=== PATIENT | female | born 1975 | race African-American/Black ===

== ENCOUNTER 2016-10-12 13:48 | Inpatient (IN) | payer BC, MEDICAID ==
[2016-10-12] MEDS ORDERED: IPRATROPIUM/ALBUTEROL 0.5-2.5 MG/3 ML AMPUL NEB ONE (14:20)
--- NOTE | 2016-10-12 14:20 | ER Document Report ---
ED Medical Screen (RME) - General Stated Complaint: COUGH,SORE THROAT,DIZZY Notes: 7 days ago patient c/o productive cough with body aches, fever denies h/o asthma tobacco user I have greeted and performed a rapid initial assessment of this patient. A comprehensive ED assessment and evaluation of the patient, analysis of test results and completion of the medical decision making process will be conducted by additional ED providers. TRAVEL OUTSIDE OF THE [place] IN LAST 30 DAYS: No - Related Data Allergies/Adverse Reactions: No Known Allergies Allergy (Verified 10/12/16 14:17) Past Medical History - Past Medical History Cardiac Medical History: Reports: Hx Hypertension Pulmonary Medical History: Denies: Hx Tuberculosis Neurological Medical History: Denies: Hx Seizures Musculoskeltal Medical History: Reports Hx Arthritis Psychiatric Medical History: Denies: Hx Depression Past Surgical History: Reports: Hx Section, Hx Orthopedic Surgery - right knee, Hx Tubal Ligation. Denies: Hx Hysterectomy, Hx Pacemaker - Immunizations Hx Diphtheria, Pertussis, Tetanus Vaccination: Yes Physical Exam - Vital signs Vitals: Temp Pulse Resp BP Pulse Ox 102.6 F H 136 H 24 H 158/88 H 99 10/12/16 13:57 10/12/16 13:57 10/12/16 13:57 10/12/16 13:57 10/12/16 13:57 Course - Vital Signs Vital signs: Temp Pulse Resp BP Pulse Ox 102.6 F H 136 H 24 H 158/88 H 99 10/12/16 13:57 10/12/16 13:57 10/12/16 13:57 10/12/16 13:57 10/12/16 13:57
[2016-10-12] MEDS ORDERED: NORMAL SALINE 1000 ML 1,000 ML IV ONE (16:10)
[2016-10-12] MEDS ORDERED: ACETAMINOPHEN 325 MG TABLET PO ONE (16:10)
[2016-10-12] MEDS ORDERED: PREDNISONE 20 MG TABLET PO ONE (16:12)
--- NOTE | 2016-10-12 16:17 | ER Document Report ---
ED General - General Chief Complaint: Flu Symptoms Stated Complaint: COUGH,SORE THROAT,DIZZY Mode of Arrival: Ambulatory Information source: Patient Notes: Patient is a 40 yo female with PMHx of chronic knee pain and HTN who presents with 7 day history of productive cough (white phlegm), body aches, headache, fever, chills, sore throat and wheezing. She is tobacco user, denies history of asthma. She has tried Nyquil, sudafed, maura seltzer OTC. She has not been compliant with her high blood pressure medication but did take one dose today ( lisnopril-HCTZ). She does endorse sick contacts (son and mother) and she did not get the flu vaccine. She denies and changes in vision, chest pain, n/v/d or urinary symptoms. She is also reporting pain and swelling to left knee consistent with her chronic knee pain. TRAVEL OUTSIDE OF THE [place] IN LAST 30 DAYS: No - Related Data Allergies/Adverse Reactions: No Known Allergies Allergy (Verified 10/12/16 14:17) Home Medications: Current Home Medications Lisinopril/Hydrochlorothiazide [Zestoretic 20-25 mg Tablet] 1 tab PO DAILY 10/12 [History] Oxycodone HCl/Acetaminophen [Percocet 5-325 mg Tablet] 1 tab PO Q8HP PRN [History] Past Medical History - Social History Smoking Status: Current Every Day Smoker Family History: Reviewed & Not Pertinent Patient has suicidal ideation: No Patient has homicidal ideation: No - Medical History Medical History: Other - history of iron deficiency anemia - Past Medical History Cardiac Medical History: Reports: Hx Hypertension Pulmonary Medical History: Denies: Hx Tuberculosis Neurological Medical History: Denies: Hx Seizures Renal/ Medical History: Denies: Hx Peritoneal Dialysis Musculoskeltal Medical History: Reports Hx Arthritis Psychiatric Medical History: Denies: Hx Depression Past Surgical History: Reports: Hx Section, Hx Orthopedic Surgery - right knee, Hx Tubal Ligation. Denies: Hx Hysterectomy, Hx Pacemaker - Immunizations Hx Diphtheria, Pertussis, Tetanus Vaccination: Yes Review of Systems - Review of Systems Constitutional: See HPI EENT: See HPI Cardiovascular: No symptoms reported Respiratory: See HPI Gastrointestinal: No symptoms reported Genitourinary: No symptoms reported Female Genitourinary: No symptoms reported Musculoskeletal: No symptoms reported Skin: No symptoms reported Hematologic/Lymphatic: No symptoms reported Neurological/Psychological: No symptoms reported Physical Exam - Vital signs Vitals: Temp Pulse Resp BP Pulse Ox 102.6 F H 136 H 24 H 158/88 H 99 10/12/16 13:57 10/12/16 13:57 10/12/16 13:57 10/12/16 13:57 10/12/16 13:57 Interpretation: Hypertensive, Tachycardic, Febrile, Other - tachypneic - Notes Notes: PHYSICAL EXAM: CONSTITUTIONAL: Alert and oriented, ill-appearing but in no acute distress. Appears uncomfortable. HENT: Normocephalic, atraumatic. Ear canals without erythema or foreign body, TMs pearly schmidt with good bony landmarks. Nares clear without erythema, septal hematoma or deviation, airway patent. Oropharynx erythematous without tonsilar exudate or malocclusion. Trachea midline. Uvula midline. Moist mucous membranes. EYES: Pupils equal round and reactive to light, EOM intact. Sclera anicteric, conjunctiva are normal. No entrapment. NECK: supple without lymphadenopathy. ROM intact. HEART: Tachycardic rate and regular rhythm without murmurs. LUNGS: CTAB and equal. Diminished breath sounds bilaterally but no wheezing noted. GI: Normactive bowel sounds. Nontender, non-distended. No organomegaly. no CVAT. EXTREMITIES: Normal range of motion, no pitting edema. No cyanosis. Cap Refill < 3 seconds. NEURO: Cranial nerves grossly intact. Normal sensory/motor exams. SKIN: Warm and dry. Normal turgor. No rashes or lesions noted. Course - Re-evaluation Re-evalutation: 10/12/16 16:16 Patient seen and examined. Abnormal triage vital signs noted - ordered tylenol, PO steroids, and IVF bolus. Patient was given breathing treatment in triage. Will order flu swab/lab work. 10/12/16 17:41 I have consulted with the supervisory physician per [facility] guidelines. Review of lab work - H/H low - consistent with patient's history of iron deficiency anemia, no leukocytosis. CMP unremarkable, lactic acid within normal limits, Rapid flu swabs negative. CXR negative for acute abnormalities. Notified by nursing staff of repeat vital signs: BP 220/148, HR 127, temp 100.5. Ordered IV labetalol. Patient complaining of headache, ordered Head CT and PO oxycodone for pain. Troponin I within normal limits. 10/12/16 18:39 Vital sign recheck, 15 min after receiving IV labetalol - BP 211/156, HR 122. Ordered IV hydralazine. 10/12/16 20:28 Discussed and consulted with hospitalist for admission. Started on cardene IV infusion for BP control. Elevated d-dimer noted, he states he will order V/Q scan on inpatient. - Vital Signs Vital signs: Temp Pulse Resp BP Pulse Ox 100.5 F H 130 H 18 210/149 H 98 10/12/16 17:26 10/12/16 17:26 10/12/16 20:14 10/12/16 20:11 10/12/16 20:11 - Laboratory Result Diagrams: 10/12/16 16:25 10/12/16 16:25 Laboratory results interpreted by me: 10/12/16 10/12/16 10/12/16 16:25 16:25 16:25 Hgb 9.9 L Hct 31.7 L MCV 76 L MCH 23.6 L MCHC 31.2 L RDW 17.2 H Seg Neutrophils % 82.9 H Lymphocytes % 6.0 L Absolute Lymphocytes 0.4 L D-Dimer Est GFR (Non-Af Amer) 53 L Magnesium Creatine Kinase 248 H 10/12/16 10/12/16 16:25 16:25 Hgb Hct MCV MCH MCHC RDW Seg Neutrophils % Lymphocytes % Absolute Lymphocytes D-Dimer 0.80 H Est GFR (Non-Af Amer) Magnesium 1.5 L Creatine Kinase - Diagnostic Test Radiology reviewed: Image reviewed, Reports reviewed Discharge - Discharge Clinical Impression: Hypertensive crisis Condition: Serious Disposition: ADMITTED INPATIENT Admitting Provider: Hospitalist - Dr. Lucas Unit Admitted: ICU
[2016-10-12 16:37] LABS: ABSOLUTE BASOPHILS # (AUTO) 0.1 10^3/uL (0.0-0.2); ABSOLUTE LYMPHOCYTES (AUTO) 0.4 10^3/uL (0.5-4.7); ABSOLUTE MONOCYTES (AUTO) 0.6 10^3/uL (0.1-1.4); ABSOLUTE NEUT (AUTO) 5.5 10^3/uL (1.7-8.2); BASOPHILS % (AUTO) 0.9 % (0-2); EOSINOPHILS % (AUTO) 0.6 % (0-6); HEMATOCRIT 31.7 % (36.0-47.0); HEMOGLOBIN 9.9 g/dL (12.0-15.5); MEAN CORPUSCULAR HEMOGLOBIN 23.6 pg (27.0-33.4); MEAN CORPUSCULAR HGB CONC 31.2 g/dL (32.0-36.0); MEAN CORPUSCULAR VOLUME 76 fl (80-97); MONOCYTES % (AUTO) 9.6 % (3-13); RED BLOOD COUNT 4.18 10^6/uL (3.72-5.28); RED CELL DISTRIBUTION WIDTH 17.2 % (11.5-14.0); SEGMENTED NEUTROPHILS % (AUTO) 82.9 % (42-78); WHITE BLOOD COUNT 6.7 10^3/uL (4.0-10.5)
[2016-10-12 16:50] LABS: ALANINE AMINOTRANSFERASE 20 U/L (9-52); ALBUMIN 4.4 g/dL (3.5-5.0); ALKALINE PHOSPHATASE 68 U/L (38-126); ANION GAP 10 (5-19); ASPARTATE AMINO TRANSFERASE 15 U/L (14-36); BILIRUBIN,TOTAL 0.3 mg/dL (0.2-1.3); BLOOD UREA NITROGEN 14 mg/dL (7-20); CALCIUM 9.6 mg/dL (8.4-10.2); CARBON DIOXIDE 23 mmol/L (22-30); CHLORIDE 106 mmol/L (98-107); CREATININE RESULT 1.13 mg/dL (0.52-1.25); GLUCOSE 94 mg/dL (75-110); POTASSIUM 4.4 mmol/L (3.6-5.0); SODIUM 139.4 mmol/L (137-145); TOTAL PROTEIN 7.5 g/dL (6.3-8.2)
[2016-10-12] MEDS ORDERED: LABETALOL HCL INJ 20 MG/4 ML DISP.SYRIN IV ONE (17:39)
[2016-10-12 18:14] LABS: CREATINE KINASE MB 0.84 ng/mL (<4.55)
[2016-10-12 18:15] LABS: TROPONIN I < 0.012 ng/mL
[2016-10-12] MEDS ORDERED: OXYCODONE HCL IR 5 MG TABLET PO ONE (18:17)
[2016-10-12] MEDS ORDERED: HYDRALAZINE HCL INJ/PF 20 MG/1 ML SDV IV ONE (18:38)
--- NOTE | 2016-10-12 19:14 | EKG REPORT ---
SEVERITY:- ABNORMAL ECG - SINUS TACHYCARDIA KAROLYN, CONSIDER BIATRIAL ABNORMALITIES NONSPECIFIC T ABNORMALITIES, DIFFUSE LEADS : Confirmed by: Dima Nath MD 12-Oct-2016 19:14:02
[2016-10-12] MEDS ORDERED: NICARDIPINE HCL RTU, ISO-OS 200 ML IV SCH (19:45)
[2016-10-12 19:56] LABS: ADD ON TESTING BLD IN LAB ACKNOWLEDGE
[2016-10-12 20:15] LABS: MAGNESIUM 1.5 mg/dL (1.6-2.3)
[2016-10-12] MEDS ORDERED: NORMAL SALINE 1000 ML 1,000 ML IV PRN (21:15)
[2016-10-12] MEDS ORDERED: MAGNESIUM HYDROXIDE SUSP 30 ML UDCUP PO PRN (21:17)
[2016-10-12] MEDS ORDERED: ACETAMINOPHEN 325 MG TABLET PO PRN (21:17)
[2016-10-12 21:18] LABS: APPEARANCE,URINE CLEAR; BILIRUBIN,URINE NEGATIVE (NEGATIVE); GLUCOSE, URINE NEGATIVE (NEGATIVE); KETONES,URINE TRACE mg/dL (NEGATIVE); LEUKOCYTE ESTERASE,URINE NEGATIVE (NEGATIVE); NITRITE,URINE NEGATIVE (NEGATIVE); PROTEIN,URINE NEGATIVE (NEGATIVE); URINE SPECIFIC GRAVITY 1.003; UROBILINOGEN,URINE NEGATIVE mg/dL (<2.0)
[2016-10-12 21:40] LABS: URINE BARBITURATES SCREEN NEGATIVE; URINE METHADONE SCREEN NEGATIVE; URINE OPIATES LOW NEGATIVE; URINE PHENCYCLIDINE SCREEN NEGATIVE
[2016-10-12] MEDS ORDERED: PROMETHAZINE HCL INJ 25 MG/1 ML VIAL IV PRN (21:45)
--- NOTE | 2016-10-12 21:58 | PDOC H&P ---
History of Present Illness Admission Date/PCP: SHILO NICHOLS MD Patient complains of: Cough, fever, dizzy History of Present Illness: MARIO ALBERTO SERRANO is a 40 year old -Syrian female with underlying morbid obesity, chronic noncompliance with medications, hypertension, anxiety and depression, chronic abdominal pain, osteoarthritis, chronic right knee pain and swelling, chronic right lower extremity swelling, who presents to the emergency room for evaluation of a 7 day history of cough productive of white phlegm, myalgias, headache, fever, chills, mild sore throat, and wheezing. Son and mother have similar complaints. Denies any underlying pulmonary disease. Has not had a flu shot this year. Smokes 2 cigars a day. Mild chest pain this morning, but none since then. Denies nausea vomiting or diarrhea. No dysuria. Positive flatus. Normal bowel movement yesterday. Has been taking beqy-cey-cmpclfl NyQuil and TheraFlu along with [place]. Freely admitted she's not been taking her blood pressure medicine as prescribed , although she did take a dose today. The prescription bottle she had was filled on July 12 of last year, 30 tablets, and still has several tablets left. Negative cardiac history other than hypertension, with no previous ND congestive heart failure. No history of pulmonary embolus or DVT. No recent long trip with prolonged inactivity, or unusual lower extremity swelling or tenderness. Patient has been discussed with emergency room nurse practitioner who evaluated the patient. . Blood pressure noted to be quite elevated in the emergency room. Patient has been started on a nicardipine drip by the ER staff. Tachycardic into the 130s. Temperature 102.6 upon ER arrival. [facility] and are reviewed. X-ray summary results are listed below, with full report(s) reviewed. . EKG reviewed. And compared to a tracing from 04/30/2016. Social history/personal habits: . Has children. Unemployed. Lives with mother. 2 cigars a day. Occasional alcohol, but not very much or very often. Denies illicit drug use. Allergies/adverse reactions NKDA. Home medications are reviewed by discussion with patient and are to be have been reconciled by nursing staff in [facility]. Home medications initially autopopulated into [facility] may not accurately reflect patient's true medications, dosages, and/or frequencies. Unfortunately, patient uncertain of dosage of her Zoloft.. Order has been entered for staff to contact family, outpatient physician, and/or pharmacy to more accurately determine dosage and frequency and to contact physician when that has been accomplished. REVIEW OF SYSTEMS: Constitutional: See history and present illness. Eyes: Wears glasses. ENT: No swallowing problems or complaints. No hearing problems or complaints. Pulmonary: See history and present illness. Cardiovascular: See history and present illness. Gastrointestinal: No current complaints, including nausea or vomiting. Skin: No current complaints, including rashes. Hematologic: Easy bruising. Neurologic: No current complaints, including numbness or tingling. Musculoskeletal: Joint pain from arthritis. Psychiatric: Mild Anxiety depression; denies suicidal or homicidal ideation. Endocrine: No current complaints, including polyuria. Genitourinary: No current complaints, including dysuria. PHYSICAL EXAMINATION: Female emergency room nurse Nickie is present. 5 feet 11 inches tall. 139.1 kg. BMI 42.8 kg/m. Manual blood pressure 230/ 160 in the left; 240/170 in the right. Temperature 99.3. Pulse 125 and regular. 96% saturation on room air. Respirations are 23 and unlabored. Morbidly obese otherwise well-developed -Sy[place] female appearing perhaps slightly older than her stated age. Appears not to feel very well. Pleasant awake alert and cooperative otherwise. Mildly anxious, without agitation. Skin is warm and dry. No grossly obvious evidence of rash in areas of skin examined. No subcutaneous nodules palpated. ENT: Hearing grossly normal to normal conversation. Tongue midline on protrusion pink and slightly tacky. Eyes: No scleral icterus. Pupils equal and reactive to light at 4 mm. [place] conjunctivae. Neck is supple and nontender to gentle active range of motion and palpation. Midline trachea. No palpable thyroid nodule mass enlargement or tenderness. Lymphatic: No palpable cervical or clavicular nodes. Neck and lymphatic exams limited by patient body habitus. Psychiatric: Fair to reasonable insight into acute and chronic medical issues. Oriented to time location and why here. Lungs: Auscultation reveals equal breath sounds bilaterally. No use of accessory respiratory muscles. Faintly coarse breath sounds bilaterally, with occasional slightly productive cough. Cardiovascular: Heart regular rate and rhythm, without gallop murmur or rub. No carotid or abdominal aortic bruits. No ankle or pedal edema. palpable dorsalis pedis pulses. Abdomen: soft, obese, positive bowel sounds. Unable to adequately evaluate abdomen for masses or organomegaly due to body habitus. Mild diffuse abdominal tenderness, without guarding or peritoneal signs. Patient states this is consistent with her chronic abdominal pain. Extremities: Feet are warm and dry. No calf tenderness to compression. No grossly obvious visual evidence of calf swelling. Gentle manipulation of lower extremities fails to reveal any obvious evidence of injury or instability to knees hips or ankles. Slight decreased range of motion right knee, a chronic finding due to prior injury and surgery for same. Neurologic: Moves upper extremities grossly normally. Patellar reflexes absent. Absent Babinski. Light touch is intact at feet. Dorsiflexion and plantarflexion of feet 5 / 5 and symmetric. Past Medical History Cardiac Medical History: Reports: Hypertension Denies: Congestive Heart Failure, DVT, Myocardial Infarction, Hyperlipidema, Pulmonary Embolism Pulmonary Medical History: Denies: Asthma, Chronic Obstructive Pulmonary Disease (COPD), Tuberculosis EENT Medical History: Reports: Eyes - Glasses Denies: Ears, Throat Neurological Medical History: Denies: Hemorrhagic CVA, Ischemic CVA, Seizures Endocrine Medical History: Denies: Diabetes Mellitus Type 1, Diabetes Mellitus Type 2, Hyperthyroidism, Hypothyroidism Renal/ Medical History: Reports: None GI Medical History: Reports: Other - Chronic abdominal pain. Denies: Cirrhosis, Gastroesophageal Reflux Disease, Hepatitis, Peptic Ulcer Disease Musculoskeltal Medical History: Reports: Arthritis - Osteoarthritis Skin Medical History: Reports: None Denies: Eczema, Psoriasis Psychiatric Medical History: Reports: Depression, General Anxiety Disorder, Tobacco Dependency Denies: Alcohol Dependency, Substance Abuse Hematology: Reports: Other - Easy bruising Infectious Medical History: Denies: Hepatitis B, Hepatitis C Past Surgical History Past Surgical History: Reports: Section, Orthopedic Surgery - right knee, Tubal Ligation Denies: Hysterectomy, Pacemaker Social History Information Source: Patient, Emergency Med Personnel, [facility] Records Lives with: Family Smoking Status: Current Every Day Smoker Frequency of Alcohol Use: Occasional Hx Recreational Drug Use: No Drugs: None Hx Prescription Drug Abuse: No - Advance Directive Resuscitation Status: Full Code Surrogate healthcare decision maker:: Mother Family History Family History: Reviewed & Not Pertinent Parental Family History Reviewed: Yes Children Family History Reviewed: Yes Sibling(s) Family History Reviewed.: NA Medication/Allergy Home Medications: Lisinopril/Hydrochlorothiazide [Zestoretic 20-25 mg Tablet] 1 tab PO DAILY 10/12 Oxycodone HCl/Acetaminophen [Percocet 5-325 mg Tablet] 1 tab PO Q12H PRN Sertraline HCl [Zoloft] 25 mg PO DAILY 10/12/16 Allergies/Adverse Reactions: No Known Allergies Allergy (Verified 10/12/16 14:17) Physical Exam Vital Signs: Temp Pulse Resp BP Pulse Ox 99.3 F 130 H 23 H 179/151 H 97 10/12/16 20:44 10/12/16 17:26 10/12/16 20:31 10/12/16 20:31 10/12/16 20:31 Intake & Output 10/11/16 10/12/16 10/13/16 00:59 00:59 00:59 Weight 139.1 kg Results Laboratory Results: 10/12/16 16:25 10/12/16 16:25 10/12/16 10/12/16 10/12/16 16:25 16:25 16:25 WBC 6.7 RBC 4.18 Hgb 9.9 L Hct 31.7 L MCV 76 L MCH 23.6 L MCHC 31.2 L RDW 17.2 H Plt Count 302 Seg Neutrophils % 82.9 H Lymphocytes % 6.0 L Monocytes % 9.6 Eosinophils % 0.6 Basophils % 0.9 Absolute Neutrophils 5.5 Absolute Lymphocytes 0.4 L Absolute Monocytes 0.6 Absolute Eosinophils 0.0 Absolute Basophils 0.1 Sodium 139.4 Potassium 4.4 Chloride 106 Carbon Dioxide 23 Anion Gap 10 BUN 14 Creatinine 1.13 Est GFR ( Amer) > 60 Est GFR (Non-Af Amer) 53 L Glucose 94 Lactic Acid 1.2 Calcium 9.6 Magnesium Total Bilirubin 0.3 AST 15 ALT 20 Alkaline Phosphatase 68 Total Protein 7.5 Albumin 4.4 TSH Serum HCG, Qual 10/12/16 10/12/16 10/12/16 16:25 16:25 16:25 WBC RBC Hgb Hct MCV MCH MCHC RDW Plt Count Seg Neutrophils % Lymphocytes % Monocytes % Eosinophils % Basophils % Absolute Neutrophils Absolute Lymphocytes Absolute Monocytes Absolute Eosinophils Absolute Basophils Sodium Potassium Chloride Carbon Dioxide Anion Gap BUN Creatinine Est GFR ( Amer) Est GFR (Non-Af Amer) Glucose Lactic Acid Calcium Magnesium 1.5 L Total Bilirubin AST ALT Alkaline Phosphatase Total Protein Albumin TSH 0.84 Serum HCG, Qual NEGATIVE 10/12/16 10/12/16 16:25 16:25 Creatine Kinase 248 H CK-MB (CK-2) 0.84 Troponin I < 0.012 Impressions: Chest X-Ray 10/12/16 14:20 IMPRESSION: NO SIGNIFICANT RADIOGRAPHIC FINDING IN THE CHEST. Knee X-Ray 10/12/16 18:17 IMPRESSION: Largely chronic appearing changes. Old trauma and fracture repair. Degenerative changes. There may be a small joint effusion but no evidence of fracture. Head CT 10/12/16 18:23 IMPRESSION: 1. Chronic appearing paranasal sinus disease. 2. No acute intracranial abnormality detected. Assessment & Plan - Diagnosis (1) Abdominal pain Qualifiers: Abdominal location: generalized Qualified Code(s): R10.84 - Generalized abdominal pain Is this a current diagnosis for this admission?: YesPlan: Chronic issue for patient, without change. Follow clinically. (2) Knee pain, right Qualifiers: Chronicity: chronic Qualified Code(s): M25.561 - Pain in right knee Is this a current diagnosis for this admission?: YesPlan: When necessary pain medication. (3) URI (upper respiratory infection) Qualifiers: URI type: unspecified URI Qualified Code(s): J06.9 - Acute upper respiratory infection, unspecified; B97.89 - Other viral agents as the cause of diseases classified elsewhere Is this a current diagnosis for this admission?: YesPlan: Symptomatic treatment. (4) Depression Qualifiers: Depression Type: unspecified Qualified Code(s): F32.9 - Major depressive disorder, single episode, unspecified Is this a current diagnosis for this admission?: YesPlan: Resume home medications as appropriate once these have been determined and reviewed. (5) Anxiety Is this a current diagnosis for this admission?: YesPlan: Resume home medications as appropriate once these have been determined and reviewed. (6) Tobacco dependency Is this a current diagnosis for this admission?: Yes (7) Elevated d-dimer Is this a current diagnosis for this admission?: YesPlan: CT angiogram of chest. (8) Noncompliance Is this a current diagnosis for this admission?: YesPlan: Extreme importance of maintaining compliance with medications, in particular blood pressure medication, discussed with patient. (9) Hypertensive emergency without congestive heart failure Is this a current diagnosis for this admission?: YesPlan: Likely combination of lack of her blood pressure medicine, combined with over- the-counter treatments she has been taking for her upper respiratory tract infection. Nicardipine drip. ICU admission. I have strongly encouraged patient not to get out of bed without notifying staff , to avoid a fall with injury. Knee high SCDs for DVT prophylaxis, along with subcutaneous Lovenox. Impression and plans were discussed with patient, who concurs. Time spent in evaluation and management of patient: 65 critical care minutes. (10) Hypomagnesemia Is this a current diagnosis for this admission?: YesPlan: Magnesium supplement. Follow-up magnesium level. - Inpatient Certification Based on my medical assessment, after consideration of the patient's comorbidities, presenting symptoms, or acuity I expect that the services needed warrant INPATIENT care.: Yes I certify that my determination is in accordance with my understanding of Medicare's requirements for reasonable and necessary INPATIENT services [42 CFR 412.3e].: Yes Medical Necessity: Need Close Monitoring Due to Risk of Patient Decompensation, Need For Continuous Telemetry Monitoring, Need for Pain Control, Risk of Complication if Not Cared For in Hospital, Risk of Diagnosis Which Will Require Inpatient Eval/Care/Monitoring Post Hospital Care: D/C or Transfer Summary
[2016-10-12] MEDS ORDERED: ENOXAPARIN SODIUM INJ 40 MG/0.4 ML DISP.SYRIN SUBCUT ONE (22:00)
[2016-10-12] MEDS ORDERED: MAGNESIUM SULFATE/D5W 100 ML IV ONE (22:00)
[2016-10-12] MEDS: OXYCODONE HCL IR 5 MG TABLET PO PRN (22:01)
[2016-10-12] MEDS: NICARDIPINE HCL RTU, ISO-OS 200 ML IV PRN (22:28)
[2016-10-12] MEDS: GUAIFENESIN SYRP 200 MG/10 ML UDC PO PRN (22:30)
[2016-10-12] MEDS ORDERED: INFLUENZA ADLT QUAD (36MOS+) 2016-17 VAC 0.5 ML SYR IM PRN (22:53)
[2016-10-13] MEDS: NICARDIPINE HCL RTU, ISO-OS 200 ML IV PRN ×5 (00:12→07:47)
[2016-10-13] MEDS: OXYCODONE HCL IR 5 MG TABLET PO PRN ×3 (03:56→17:01)
[2016-10-13] MEDS ORDERED: IPRATROPIUM BROMIDE 0.02% NEB 0.5 MG/2.5 ML AMPUL NEB ONE (04:29)
[2016-10-13] MEDS: IPRATROPIUM BROMIDE 0.02% NEB 0.5 MG/2.5 ML AMPUL NEB PRN ×2 (04:51→17:35)
[2016-10-13] MEDS ORDERED: AZITHROMYCIN INJ 500 MG VIAL IV PRN (05:00)
[2016-10-13 05:02] LABS: ABSOLUTE LYMPHOCYTES (AUTO) 0.4 10^3/uL (0.5-4.7); ABSOLUTE MONOCYTES (AUTO) 0.2 10^3/uL (0.1-1.4); ABSOLUTE NEUT (AUTO) 3.6 10^3/uL (1.7-8.2); BASOPHILS % (AUTO) 0.7 % (0-2); EOSINOPHILS % (AUTO) 0.2 % (0-6); HEMATOCRIT 30.2 % (36.0-47.0); HEMOGLOBIN 9.7 g/dL (12.0-15.5); HGB HCT DIFFERENCE -1.1; LYMPHOCYTES % (AUTO) 9.9 % (13-45); MEAN CORPUSCULAR HEMOGLOBIN 23.7 pg (27.0-33.4); MEAN CORPUSCULAR VOLUME 74 fl (80-97); MONOCYTES % (AUTO) 3.8 % (3-13); RED BLOOD COUNT 4.08 10^6/uL (3.72-5.28); RED CELL DISTRIBUTION WIDTH 17.4 % (11.5-14.0); SEGMENTED NEUTROPHILS % (AUTO) 85.4 % (42-78); WHITE BLOOD COUNT 4.3 10^3/uL (4.0-10.5)
[2016-10-13] MEDS ORDERED: CEFTRIAXONE 2 GM/D5W RTU 2 GM/50 ML RTUPB IV SCH (06:00)
[2016-10-13] MEDS ORDERED: AZITHROMYCIN 500 MG in DEXTROSE 5%-WATER 250 ML IV SCH (08:00)
--- NOTE | 2016-10-13 08:51 | PDOC PROGRESS REPORT ---
Subjective Progress Note for:: 10/13/16 Subjective:: Patient has continued cough and generalized weakness. She denies chest pain or shortness of breath. She has chronic right knee pain from prior trauma. She also states that she has heavy menses secondary to uterine fibroids and has been told she had iron deficiency anemia in the past. Patient denies fever, chills, headache, new focal weakness, chest pain, shortness of breath, abdominal pain, nausea, vomiting, diarrhea, constipation. Physical Exam Vital Signs: Temp Pulse Resp BP Pulse Ox 99.6 F 122 H 21 H 146/99 H 97 10/13/16 04:00 10/13/16 04:50 10/13/16 06:10 10/13/16 06:09 10/13/16 06:10 Intake & Output 10/12/16 10/13/16 10/14/16 06:59 06:59 06:59 Intake Total 1826 Output Total 2950 Balance -1124 Weight 138 kg GENERAL: No acute distress HEENT: Conjunctiva clear, nonicteric, moist mucous membranes, no JVD, midline trachea RESPIRATORY: Clear to auscultation bilaterally, no wheezes, no rhonchi CARDIAC: Regular rate and rhythm, no murmurs/gallops/rubs ABDOMEN: Soft, nondistended, nontender, positive bowel sounds, no rebound, no guarding EXTREMETIES: No edema, cyanosis, clubbing NEUROLOGIC: Alert, oriented to person/place/time, CN's grossly intact, no focal deficits SKIN: No rash, wounds PSYCH: Normal mood, normal affect Results Laboratory Results: 10/13/16 04:50 10/13/16 10/13/16 10/13/16 04:50 04:50 04:50 WBC 4.3 RBC 4.08 Hgb 9.7 L Hct 30.2 L MCV 74 L MCH 23.7 L MCHC 32.0 RDW 17.4 H Plt Count 317 Seg Neutrophils % 85.4 H Lymphocytes % 9.9 L Monocytes % 3.8 Eosinophils % 0.2 Basophils % 0.7 Absolute Neutrophils 3.6 Absolute Lymphocytes 0.4 L Absolute Monocytes 0.2 Absolute Eosinophils 0.0 Absolute Basophils 0.0 Retic Count (auto) 1.56 Absolute Retic 0.063 Magnesium 2.0 Impressions: Chest/Abdomen CTA 10/12/16 00:00 IMPRESSION: NORMAL CTA OF THE CHEST. NO PULMONARY EMBOLI. Chest X-Ray 10/12/16 14:20 IMPRESSION: NO SIGNIFICANT RADIOGRAPHIC FINDING IN THE CHEST. Knee X-Ray 10/12/16 18:17 IMPRESSION: Largely chronic appearing changes. Old trauma and fracture repair. Degenerative changes. There may be a small joint effusion but no evidence of fracture. Head CT 10/12/16 18:23 IMPRESSION: 1. Chronic appearing paranasal sinus disease. 2. No acute intracranial abnormality detected. Thyroid Ultrasound 10/13/16 00:00 IMPRESSION: 11 mm nodule lower pole right lobe of the thyroid which does not meet ultrasound criteria for biopsy. Otherwise unremarkable thyroid ultrasound. Assessment & Plan - Diagnosis (1) Hypertensive emergency without congestive heart failure Is this a current diagnosis for this admission?: YesPlan: Resume lisinopril HCT at home dose. Start Toprol-XL 50 mg daily. Titrate off Cardene drip as tolerated. (2) Acute bronchitis Is this a current diagnosis for this admission?: YesPlan: Discontinue IV antibiotics. Start doxycycline 100 mg twice daily. (3) Thyroid nodule Is this a current diagnosis for this admission?: YesPlan: Thyroid ultrasound shows thyroid nodule that does not meet criteria for biopsy. This can be followed up by primary care provider. (4) Uterine fibroids affecting Is this a current diagnosis for this admission?: Yes (5) Anemia Is this a current diagnosis for this admission?: YesPlan: Likely iron deficiency as a result of menorrhagia from uterine fibroids given patient's history. Check anemia panel. Start iron supplementation if indicated. (6) Depression Qualifiers: Depression Type: unspecified Qualified Code(s): F32.9 - Major depressive disorder, single episode, unspecified Is this a current diagnosis for this admission?: YesPlan: Resume Zoloft. (7) Knee pain, right Qualifiers: Chronicity: chronic Qualified Code(s): M25.561 - Pain in right knee Is this a current diagnosis for this admission?: YesPlan: Secondary to remote trauma. Continue when necessary oxycodone. (8) Tobacco dependency Is this a current diagnosis for this admission?: YesPlan: Counseled on smoking cessation. (9) Noncompliance Is this a current diagnosis for this admission?: YesPlan: Patient is strongly counseled to take blood pressure medications as prescribed. I advised her that her blood pressure was so high this admission she may have had a hemorrhagic stroke. She understands and agrees to take all medications as prescribed the future. (10) Morbid obesity with body mass index of 40.0-49.9 Is this a current diagnosis for this admission?: Yes - Time Time Spent with patient: 35 or more minutes Anticipated discharge: Home Within: within 48 hours
[2016-10-13] MEDS ORDERED: NICARDIPINE HCL RTU, ISO-OS 200 ML IV PRN (09:02)
[2016-10-13] MEDS: DOXYCYCLINE HYCLATE 100 MG TABLET PO SCH ×2 (09:50→21:41)
[2016-10-13] MEDS: DOCUSATE SODIUM 100 MG CAPSULE PO SCH ×2 (09:51→17:02)
[2016-10-13] MEDS: ENOXAPARIN SODIUM INJ 40 MG/0.4 ML DISP.SYRIN SUBCUT SCH (09:51)
[2016-10-13] MEDS ORDERED: METOPROLOL SUCCINATE 50 MG TAB.SR.24H PO SCH (10:00)
[2016-10-13] MEDS ORDERED: (PENDING PHARMACY ID) (Sertraline Hcl [Zoloft] 25 MG) PO SCH (10:00)
[2016-10-13] MEDS ORDERED: (PENDING PHARMACY ID) (Lisinopril/Hydrochlorothiazide [Zestoretic 20-25 Mg Tablet] 1 TAB) PO SCH (10:00)
[2016-10-13 10:10] LABS: FOLATE > 20.00 ng/mL (>2.76)
[2016-10-13] MEDS: GUAIFENESIN SYRP 200 MG/10 ML UDC PO PRN (10:28)
[2016-10-13] MEDS ORDERED: HYDROCHLOROTHIAZIDE 25 MG TABLET PO ONE (12:00)
[2016-10-13] MEDS ORDERED: LISINOPRIL 10 MG TABLET PO ONE (12:00)
[2016-10-13] MEDS ORDERED: SERTRALINE HCL 50 MG TABLET PO ONE (12:00)
[2016-10-13] MEDS ORDERED: METOPROLOL TARTRATE PF/INJ 5 MG/5 ML SDV IV PRN (16:34)
[2016-10-14] MEDS: HYDRALAZINE HCL INJ/PF 20 MG/1 ML SDV IV PRN ×2 (03:58→23:56)
[2016-10-14 04:33] LABS: ABSOLUTE EOSINOPHILS # (AUTO) 0.1 10^3/uL (0.0-0.6); ABSOLUTE LYMPHOCYTES (AUTO) 1.4 10^3/uL (0.5-4.7); ABSOLUTE MONOCYTES (AUTO) 0.3 10^3/uL (0.1-1.4); ABSOLUTE NEUT (AUTO) 1.7 10^3/uL (1.7-8.2); BASOPHILS % (AUTO) 1.3 % (0-2); EOSINOPHILS % (AUTO) 1.7 % (0-6); HEMATOCRIT 31.5 % (36.0-47.0); HEMOGLOBIN 10.1 g/dL (12.0-15.5); HGB HCT DIFFERENCE -1.2; LYMPHOCYTES % (AUTO) 39.5 % (13-45); MEAN CORPUSCULAR HEMOGLOBIN 23.9 pg (27.0-33.4); MEAN CORPUSCULAR HGB CONC 31.9 g/dL (32.0-36.0); MEAN CORPUSCULAR VOLUME 75 fl (80-97); MONOCYTES % (AUTO) 9.7 % (3-13); RED BLOOD COUNT 4.21 10^6/uL (3.72-5.28); RED CELL DISTRIBUTION WIDTH 17.4 % (11.5-14.0); SEGMENTED NEUTROPHILS % (AUTO) 47.8 % (42-78); WHITE BLOOD COUNT 3.5 10^3/uL (4.0-10.5)
[2016-10-14 04:50] LABS: ANION GAP 10 (5-19); BLOOD UREA NITROGEN 21 mg/dL (7-20); CALCIUM 9.2 mg/dL (8.4-10.2); CARBON DIOXIDE 21 mmol/L (22-30); CHLORIDE 104 mmol/L (98-107); CREATININE RESULT 1.07 mg/dL (0.52-1.25); GLUCOSE 86 mg/dL (75-110); POTASSIUM 4.7 mmol/L (3.6-5.0); SODIUM 135.1 mmol/L (137-145)
[2016-10-14] MEDS ORDERED: CEFTRIAXONE 2 GM/D5W RTU 2 GM/50 ML RTUPB IV SCH (06:00)
[2016-10-14] MEDS: OXYCODONE HCL IR 5 MG TABLET PO PRN ×5 (06:29→23:55)
[2016-10-14] MEDS ORDERED: AZITHROMYCIN 500 MG in DEXTROSE 5%-WATER 250 ML IV SCH (08:00)
[2016-10-14] MEDS: ENOXAPARIN SODIUM INJ 40 MG/0.4 ML DISP.SYRIN SUBCUT SCH (09:32)
[2016-10-14] MEDS: LISINOPRIL 10 MG TABLET PO SCH (09:34)
[2016-10-14] MEDS: SERTRALINE HCL 50 MG TABLET PO SCH (09:34)
[2016-10-14] MEDS: METOPROLOL SUCCINATE 50 MG TAB.SR.24H PO SCH ×2 (09:35→21:21)
[2016-10-14] MEDS: HYDROCHLOROTHIAZIDE 25 MG TABLET PO SCH (09:36)
[2016-10-14] MEDS: DOCUSATE SODIUM 100 MG CAPSULE PO SCH ×2 (09:36→17:33)
[2016-10-14] MEDS: DOXYCYCLINE HYCLATE 100 MG TABLET PO SCH ×2 (09:38→21:21)
[2016-10-14] MEDS: IPRATROPIUM BROMIDE 0.02% NEB 0.5 MG/2.5 ML AMPUL NEB PRN (10:10)
[2016-10-14] MEDS ORDERED: ALBUTEROL SULFATE 0.083% NEB 2.5 MG/3 ML AMPUL NEB PRN (10:30)
[2016-10-14] MEDS ORDERED: PREDNISONE 20 MG TABLET PO ONE (11:00)
--- NOTE | 2016-10-14 13:31 | PDOC PROGRESS REPORT ---
Subjective Progress Note for:: 10/14/16 Subjective:: Patient has continued cough and generalized weakness. She denies chest pain or shortness of breath. Patient denies fever, chills, headache, new focal weakness , chest pain, shortness of breath, abdominal pain, nausea, vomiting, diarrhea, constipation. Physical Exam Vital Signs: Temp Pulse Resp BP Pulse Ox 98.4 F 92 16 143/99 H 95 10/14/16 11:58 10/14/16 11:58 10/14/16 11:58 10/14/16 11:58 10/14/16 11:58 Intake & Output 10/13/16 10/14/16 10/15/16 06:59 06:59 06:59 Intake Total 1826 2140 444 Output Total 2950 900 Balance -1124 1240 444 Weight 138 kg 138 kg GENERAL: No acute distress HEENT: Conjunctiva clear, nonicteric, moist mucous membranes, no JVD, midline trachea RESPIRATORY: Bilateral wheezes and rhonchi CARDIAC: Regular rate and rhythm, no murmurs/gallops/rubs ABDOMEN: Soft, nondistended, nontender, positive bowel sounds, no rebound, no guarding EXTREMETIES: No edema, cyanosis, clubbing NEUROLOGIC: Alert, oriented to person/place/time, CN's grossly intact, no focal deficits SKIN: No rash, wounds PSYCH: Normal mood, normal affect Results Laboratory Results: 10/14/16 04:08 10/14/16 04:08 10/14/16 10/14/16 04:08 04:08 WBC 3.5 L RBC 4.21 Hgb 10.1 L Hct 31.5 L MCV 75 L MCH 23.9 L MCHC 31.9 L RDW 17.4 H Plt Count 320 Seg Neutrophils % 47.8 Lymphocytes % 39.5 Monocytes % 9.7 Eosinophils % 1.7 Basophils % 1.3 Absolute Neutrophils 1.7 Absolute Lymphocytes 1.4 Absolute Monocytes 0.3 Absolute Eosinophils 0.1 Absolute Basophils 0.0 Sodium 135.1 L Potassium 4.7 Chloride 104 Carbon Dioxide 21 L Anion Gap 10 BUN 21 H Creatinine 1.07 Est GFR ( Amer) > 60 Est GFR (Non-Af Amer) 56 L Glucose 86 Calcium 9.2 Impressions: Chest/Abdomen CTA 10/12/16 00:00 IMPRESSION: NORMAL CTA OF THE CHEST. NO PULMONARY EMBOLI. Chest X-Ray 10/12/16 14:20 IMPRESSION: NO SIGNIFICANT RADIOGRAPHIC FINDING IN THE CHEST. Knee X-Ray 10/12/16 18:17 IMPRESSION: Largely chronic appearing changes. Old trauma and fracture repair. Degenerative changes. There may be a small joint effusion but no evidence of fracture. Head CT 10/12/16 18:23 IMPRESSION: 1. Chronic appearing paranasal sinus disease. 2. No acute intracranial abnormality detected. Thyroid Ultrasound 10/13/16 00:00 IMPRESSION: 11 mm nodule lower pole right lobe of the thyroid which does not meet ultrasound criteria for biopsy. Otherwise unremarkable thyroid ultrasound. Assessment & Plan - Diagnosis (1) Hypertensive emergency without congestive heart failure Is this a current diagnosis for this admission?: YesPlan: Continue lisinopril HCT at home dose. Increase Toprol-XL to 50 mg twice daily. Titrated off Cardene drip. (2) Acute bronchitis Is this a current diagnosis for this admission?: YesPlan: Continue doxycycline 100 mg twice daily. Start prednisone and albuterol. (3) Thyroid nodule Is this a current diagnosis for this admission?: YesPlan: Thyroid ultrasound shows thyroid nodule that does not meet criteria for biopsy. This can be followed up by primary care provider. (4) Uterine fibroids affecting Is this a current diagnosis for this admission?: Yes (5) Anemia Is this a current diagnosis for this admission?: YesPlan: Likely iron deficiency as a result of menorrhagia from uterine fibroids given patient's history. Iron sulfate 325 mg daily. (6) Depression Qualifiers: Depression Type: unspecified Qualified Code(s): F32.9 - Major depressive disorder, single episode, unspecified Is this a current diagnosis for this admission?: YesPlan: Zoloft. (7) Knee pain, right Qualifiers: Chronicity: chronic Qualified Code(s): M25.561 - Pain in right knee Is this a current diagnosis for this admission?: YesPlan: Secondary to remote trauma. Continue when necessary oxycodone. (8) Tobacco dependency Is this a current diagnosis for this admission?: Yes (9) Noncompliance Is this a current diagnosis for this admission?: Yes (10) Morbid obesity with body mass index of 40.0-49.9 Is this a current diagnosis for this admission?: Yes - Time Time Spent with patient: 35 or more minutes Anticipated discharge: Home Within: within 24 hours
[2016-10-14] MEDS: ALBUTEROL SULFATE 0.083% NEB 2.5 MG/3 ML AMPUL NEB SCH ×2 (14:01→20:11)
[2016-10-14] MEDS ORDERED: AMLODIPINE BESYLATE 5 MG TABLET PO ONE (16:45)
[2016-10-15] MEDS: HYDRALAZINE HCL INJ/PF 20 MG/1 ML SDV IV PRN (05:59)
[2016-10-15] MEDS: OXYCODONE HCL IR 5 MG TABLET PO PRN ×3 (05:59→20:51)
[2016-10-15] MEDS: ALBUTEROL SULFATE 0.083% NEB 2.5 MG/3 ML AMPUL NEB SCH (08:17)
[2016-10-15] MEDS ORDERED: NITROGLYCERIN 0.4 MG/TAB 25 TAB/BOTTLE SL ONE (10:00)
[2016-10-15] MEDS ORDERED: PREDNISONE 20 MG TABLET PO SCH (10:00)
[2016-10-15] MEDS ORDERED: ASPIRIN 81 MG TABLET, CHEWABLE PO ONE (10:15)
--- NOTE | 2016-10-15 10:25 | PDOC PROGRESS REPORT ---
Subjective Progress Note for:: 10/15/16 Subjective:: Patient experienced episode of chest pain this morning. She was given nitroglycerin sublingual 1 and this resulted in profound hypotension. She required IV normal saline bolus to improve her pressure. Blood pressure is now stable and she is not having chest pain. Patient denies fever, chills, headache , new focal weakness, abdominal pain, nausea, vomiting, diarrhea, constipation. Physical Exam Vital Signs: Temp Pulse Resp BP Pulse Ox 98.5 F 102 H 16 134/82 H 97 10/15/16 07:57 10/15/16 08:16 10/15/16 08:16 10/15/16 07:57 10/15/16 08:16 Intake & Output 10/14/16 10/15/16 10/16/16 06:59 06:59 06:59 Intake Total 2140 1133 Output Total 900 3100 Balance 1240 -1967 Weight 138 kg 138 kg GENERAL: No acute distress HEENT: Conjunctiva clear, nonicteric, moist mucous membranes, no JVD, midline trachea RESPIRATORY: Clear to auscultation bilaterally, no wheezes, no rhonchi CARDIAC: Regular rate and rhythm, no murmurs/gallops/rubs ABDOMEN: Soft, nondistended, nontender, positive bowel sounds, no rebound, no guarding EXTREMETIES: No edema, cyanosis, clubbing NEUROLOGIC: Alert, oriented to person/place/time, CN's grossly intact, no focal deficits SKIN: No rash, wounds PSYCH: Normal mood, normal affect Results Laboratory Results: 10/14/16 04:08 10/14/16 04:08 Impressions: Chest/Abdomen CTA 10/12/16 00:00 IMPRESSION: NORMAL CTA OF THE CHEST. NO PULMONARY EMBOLI. Chest X-Ray 10/12/16 14:20 IMPRESSION: NO SIGNIFICANT RADIOGRAPHIC FINDING IN THE CHEST. Knee X-Ray 10/12/16 18:17 IMPRESSION: Largely chronic appearing changes. Old trauma and fracture repair. Degenerative changes. There may be a small joint effusion but no evidence of fracture. Head CT 10/12/16 18:23 IMPRESSION: 1. Chronic appearing paranasal sinus disease. 2. No acute intracranial abnormality detected. Thyroid Ultrasound 10/13/16 00:00 IMPRESSION: 11 mm nodule lower pole right lobe of the thyroid which does not meet ultrasound criteria for biopsy. Otherwise unremarkable thyroid ultrasound. Assessment & Plan - Diagnosis (1) Chest pain Is this a current diagnosis for this admission?: YesPlan: CTA of chest negative on admission. EKG with possible inferior/lateral ST depression as compared to admission EKG. Start aspirin. Check serial cardiac enzymes. Case discussed with Dr. Parra of cardiology. He is advised that I order echocardiogram. I will place a consult to Dr. Parra. (2) Hypertensive emergency without congestive heart failure Is this a current diagnosis for this admission?: YesPlan: Continue lisinopril HCT at home dose. Increased Toprol-XL to 50 mg twice daily. Started on Norvasc 5 mg daily on 10/14/2016. (3) Acute bronchitis Is this a current diagnosis for this admission?: YesPlan: Bronchospasm has resolved on exam today. Decrease prednisone to 40 mg daily. Continue albuterol when necessary. Continue doxycycline. Discontinue smoking. (4) Thyroid nodule Is this a current diagnosis for this admission?: YesPlan: Thyroid ultrasound shows thyroid nodule that does not meet criteria for biopsy. This can be followed up by primary care provider. (5) Uterine fibroids affecting Is this a current diagnosis for this admission?: Yes (6) Anemia Is this a current diagnosis for this admission?: YesPlan: Likely iron deficiency as a result of menorrhagia from uterine fibroids given patient's history. Iron sulfate 325 mg daily. (7) Depression Qualifiers: Depression Type: unspecified Qualified Code(s): F32.9 - Major depressive disorder, single episode, unspecified Is this a current diagnosis for this admission?: YesPlan: Zoloft. (8) Knee pain, right Qualifiers: Chronicity: chronic Qualified Code(s): M25.561 - Pain in right knee Is this a current diagnosis for this admission?: YesPlan: Secondary to remote trauma. X-ray shows no acute findings. Continue when necessary oxycodone. (9) Tobacco dependency Is this a current diagnosis for this admission?: YesPlan: Counseled on smoking cessation. (10) Noncompliance Is this a current diagnosis for this admission?: YesPlan: Patient is strongly counseled to take blood pressure medications as prescribed. I advised her that her blood pressure was so high this admission she may have had a hemorrhagic stroke. She understands and agrees to take all medications as prescribed the future. (11) Morbid obesity with body mass index of 40.0-49.9 Is this a current diagnosis for this admission?: Yes - Time Time Spent with patient: 35 or more minutes
[2016-10-15] MEDS: FERROUS SULFATE 325 MG TABLET PO SCH (11:01)
[2016-10-15] MEDS: HYDROCHLOROTHIAZIDE 25 MG TABLET PO SCH (11:03)
[2016-10-15] MEDS: PREDNISONE 20 MG TABLET PO SCH (11:03)
[2016-10-15] MEDS: SERTRALINE HCL 50 MG TABLET PO SCH (11:04)
[2016-10-15] MEDS: LISINOPRIL 10 MG TABLET PO SCH (11:05)
[2016-10-15] MEDS: AMLODIPINE BESYLATE 5 MG TABLET PO SCH (11:06)
[2016-10-15] MEDS: DOCUSATE SODIUM 100 MG CAPSULE PO SCH ×2 (11:06→18:10)
[2016-10-15] MEDS: METOPROLOL SUCCINATE 50 MG TAB.SR.24H PO SCH ×2 (11:06→22:21)
[2016-10-15] MEDS: ENOXAPARIN SODIUM INJ 40 MG/0.4 ML DISP.SYRIN SUBCUT SCH (11:07)
[2016-10-15] MEDS: DOXYCYCLINE HYCLATE 100 MG TABLET PO SCH ×2 (11:07→22:21)
[2016-10-15 11:08] LABS: CREATINE KINASE MB 0.83 ng/mL (<4.55)
[2016-10-15 11:09] LABS: TROPONIN I < 0.012 ng/mL
[2016-10-15 16:36] LABS: CREATINE KINASE MB 0.72 ng/mL (<4.55)
[2016-10-15 16:37] LABS: TROPONIN I < 0.012 ng/mL
--- NOTE | 2016-10-15 18:49 | XCELERA REPORT ---
[address] [address] Transthoracic Echocardiogram Report Name: MARIO ALBERTO SERRANO Age: 40 yrs Gender: Female : 1975 Patient Status: Inpatient Patient Location: [id number] Study Date: 10/15/2016 02:16 PM Height: 71 in Weight: 304 lb BSA: 2.5 m2 Procedure: A complete two-dimensional transthoracic echocardiogram was performed (2D, M-mode, spectral and color flow Doppler). The study was technically difficult with many images being suboptimal in quality. Reason For Study: chest pain, hypotension Ordering Physician: CHELSEY MINOR Performed By: Laury Garcia Interpretation Summary The left ventricular ejection fraction is normal. There is mild concentric left ventricular hypertrophy. The left ventricle is grossly normal size. Doppler measurements suggest pseudonormalized left ventricular relaxation, which is associated with grade II/IV or mild to moderate diastolic dysfunction Wall motion cannot be accurately commented on, but no definite regional wall motion abnormalities noted. The right ventricular systolic function is normal. The right atrium is borderline dilated. The left atrium is mildly dilated. There is a trace amount of mitral regurgitation There is no mitral valve stenosis. No aortic regurgitation is present. There is no aortic valve stenosis There is a trace or physiologic amount of tricuspid regurgitation Tricuspid regurgitation jet envelope not well defined to measure RV systolic pressure accurately. The aortic root is not well visualized. The inferior vena cava was not well visualized There is no pericardial effusion. MMode/2D Measurements \T\ Calculations RVDd: 2.0 cm LVIDd: 4.9 cmFS: 32.6 % Ao root diam: 2.9 cm IVSd: 1.3 cm LVIDs: 3.3 cmEDV(Teich): 111.2 ml LVPWd: 1.3 cmESV(Teich): 43.6 ml Ao root area: 6.6 cm2 EF(Teich): 60.8 % LA dimension: 4.3 cm LVOT diam: 2.3 cm LVOT area: 4.1 cm2 Doppler Measurements \T\ Calculations MV E max jen: MV P1/2t max jen: Ao V2 max: LV V1 max P.8 cm/sec 95.3 cm/sec 152.4 cm/sec 6.4 mmHg MV A max jen: MV P1/2t: 40.1 msec Ao max PG: LV V1 max: 96.3 cm/sec MVA(P1/2t): 5.5 cm2 9.3 mmHg 126.9 cm/sec MV E/A: 0.99 MV dec slope: [place](V,D): 3.4 cm2 696.3 cm/sec2 MV dec time: 0.12 sec PA V2 max: 115.5 cm/sec PA max P.3 mmHg Left Ventricle The left ventricle is grossly normal size. There is mild concentric left ventricular hypertrophy. The left ventricular ejection fraction is normal. Doppler measurements suggest pseudonormalized left ventricular relaxation, which is associated with grade II/IV or mild to moderate diastolic dysfunction. Wall motion cannot be accurately commented on, but no definite regional wall motion abnormalities noted. Right Ventricle The right ventricle is grossly normal size. There is normal right ventricular wall thickness. The right ventricular systolic function is normal. Atria The right atrium is borderline dilated. The left atrium is mildly dilated. Interarterial septum not well visualized and not well dopplered. Cannot comment on ASD/PFO presence. Mitral Valve The mitral valve is grossly normal. There is no mitral valve stenosis. There is a trace amount of mitral regurgitation. Aortic Valve The aortic valve is grossly normal. There is no aortic valve stenosis. No aortic regurgitation is present. Tricuspid Valve The tricuspid valve is not well visualized, but is grossly normal. There is no tricuspid stenosis. There is a trace or physiologic amount of tricuspid regurgitation. Tricuspid regurgitation jet envelope not well defined to measure RV systolic pressure accurately. Pulmonic Valve The pulmonic valve is not well visualized. Great Vessels The aortic root is not well visualized. The inferior vena cava was not well visualized. Effusions There is no pericardial effusion. : CHELSEY MINOR > Marcelina Parra
--- NOTE | 2016-10-15 19:31 | PDOC CONSULTATION ---
Consultation Consult Date: 10/15/16 Attending physician:: CHELSEY MINOR Consult reason:: chest pain, hypotension History of Present Illness Admission Date/PCP: 10/12/16 21:17 SHILO NICHOLS MD Patient complains of: chest pain History of Present Illness: MARIO ALBERTO SERRANO is a 40 year old -[place] female with underlying morbid obesity, chronic noncompliance with medications, hypertension, anxiety and depression, chronic abdominal pain, osteoarthritis, chronic right knee pain and swelling, chronic right lower extremity swelling, who presents to the emergency room for evaluation of a 7 day history of cough productive of white phlegm, myalgias, headache, fever, chills, mild sore throat, and wheezing. Son and mother have similar complaints. Denies any underlying pulmonary disease. Has not had a flu shot this year. Smokes 2 cigars a day. Chest pain on admission and again the patient experienced episode of chest pain this morning. She was given nitroglycerin sublingual 1 and this resulted in profound hypotension. She required IV normal saline bolus to improve her pressure. Blood pressure is now stable and she is not having chest pain. Denies nausea vomiting or diarrhea. No dysuria. Has been taking [id number] NyQuil and TheraFlu along with Kelli-[place]. Patients not been taking her blood pressure medicine as prescribed. The prescription bottle she had was filled on July 12 of last year, 30 tablets, and still has several tablets left. Negative cardiac history other than hypertension, with no previous [place] congestive heart failure. No history of pulmonary embolus or DVT. No recent long trip with prolonged inactivity, or unusual lower extremity swelling or tenderness. Blood pressure noted to be quite elevated in the emergency room. Patient has been started on a nicardipine drip by the ER staff. Tachycardic into the 130s. Temperature 102.6 upon ER arrival. [facility] and are reviewed. Past Medical History Cardiac Medical History: Reports: Hypertension Denies: Congestive Heart Failure, DVT, Myocardial Infarction, Hyperlipidema, Pulmonary Embolism Pulmonary Medical History: Denies: Asthma, Chronic Obstructive Pulmonary Disease (COPD), Tuberculosis EENT Medical History: Reports: Eyes - Glasses, Other - Easy bruising Denies: Ears, Throat Neurological Medical History: Denies: Hemorrhagic CVA, Ischemic CVA, Seizures Endocrine Medical History: Denies: Diabetes Mellitus Type 1, Diabetes Mellitus Type 2, Hyperthyroidism, Hypothyroidism Renal/ Medical History: Reports: None GI Medical History: Reports: Other - Chronic abdominal pain. Denies: Cirrhosis, Gastroesophageal Reflux Disease, Hepatitis, Peptic Ulcer Disease Musculoskeltal Medical History: Reports: Arthritis - Osteoarthritis Skin Medical History: Reports: None Denies: Eczema, Psoriasis Psychiatric Medical History: Reports: Depression, General Anxiety Disorder, Tobacco Dependency Denies: Alcohol Dependency, Substance Abuse Hematology: Reports: Other - Easy bruising Infectious Medical History: Denies: Hepatitis B, Hepatitis C Past Surgical History Past Surgical History: Reports: Section, Orthopedic Surgery - right knee, Tubal Ligation Denies: Hysterectomy, Pacemaker Social History Information Source: Patient Lives with: Family Smoking Status: Current Every Day Smoker Cigars Per Day: 2 Number of Years Smokin Frequency of Alcohol Use: Occasional Hx Recreational Drug Use: No Drugs: None Hx Prescription Drug Abuse: No - Advance Directive Resuscitation Status: Full Code Surrogate healthcare decision maker:: patients mother Family History Family History: Reviewed & Not Pertinent Parental Family History Reviewed: Yes Children Family History Reviewed: Yes Sibling(s) Family History Reviewed.: Yes - Patient denied family history of premature coronary artery disease or sudden cardiac in immediate family members. Medication/Allergy Home Medications: Lisinopril/Hydrochlorothiazide [Zestoretic 20-25 mg Tablet] 1 tab PO DAILY 10/12 Oxycodone HCl/Acetaminophen [Percocet 5-325 mg Tablet] 1 tab PO Q12H PRN Sertraline HCl [Zoloft] 25 mg PO DAILY 10/12/16 Allergies/Adverse Reactions: No Known Allergies Allergy (Verified 10/12/16 14:17) Review of Systems Review of Systems: Constitutional: (+)fever, (-)night sweats, (-)chills, (+)fatigue, (+)daytime somnelence, (-)anorexia Eyes: (-)loss of vision, (-)diplopia, (-)eye redness, (-)eye pain, (-)purulent discharge Ears: (-)hearing loss, (-)ear pain/ear ache, (-)ear drainage Nose: (-)nasal congestion, (-)nasal discharge, (-)epistaxis, (+)snoring Mouth/Throat/Voice: (-)mouth sores, (-)tongue sores, (-)dysphagia, (-) odynophagia, (-)gum bleeding Neck: (-)neck stiffness, (-)neck lumps, (-)neck swelling Respiratory: (+)dyspnea, (-)cough, (-)cough productive of sputum, (-)hemoptysis , (-)wheezing Cardiovascular: (+)chest pain, (+)palpitations, (-)dyspnea at rest, (+)dyspnea with activity, (-)orthopnea, (-)paroxysmal nocturnal dyspnea, (+)lower extremity edema Gastrointestinal: (-)abdominal pain, (-)vomiting blood, (-)fecal incontinence, ( -)daniel-colored stools, (-)tarry stools Urinary: (-)dysuria, (-)hematuria, (+)increased nighttime urination Dermatologic/Integumentary: (-)dry skin, (-)rash, (-)bruising, (-)new mole(s) Musculoskeletal: (-)muscle weakness, (-)decreased muscle strength, (-)limb paralysis, (+) arthritis Neurological: (+)headaches, (-)fainting, (-)blackout(s), (-)lack of coordination , (-)difficulty speaking Psychiatric: (-)sadness interfering with function, (+)sleep disturbance, (-) suicidal ideation, (-)delusions, (-)hallucinations Hematologic/Lymphatic: (-)easy bruising, (-)difficulty stopping blood flow, (-) lymph node enlargement, (-)lymph node tenderness Physical Exam Vital Signs: Temp Pulse Resp BP Pulse Ox 98.5 F 102 H 16 134/82 H 97 10/15/16 07:57 10/15/16 08:16 10/15/16 08:16 10/15/16 07:57 10/15/16 08:16 Intake & Output 10/14/16 10/15/16 10/16/16 06:59 06:59 06:59 Intake Total 2140 1133 Output Total 900 3100 Balance 1240 -1967 Weight 138 kg 138 kg Exam: GEN: NAD, patient alert oriented x3. Appearance and grooming WNL HEENT : Eyes: PINA, Ears: No significant abnormalities, Nose: No significant abnormalities. normocephalic atraumatic. Flat midface (-), Receding chin (-) ORAL : Mallampati class III, highly arched palate (-) Tonsils: Not enlarged. NECK: no thyromegaly, no masses, trachea is central, JVD is not elevated, carotids are 2+ with bruit (-) RESP: lungs clear to auscultation bilaterally, no rales, wheezes or rhonchi., nonlabored, no use of accessory muscles of respiration CV: NL S1 and S2. 2/6 ejection systolic murmur noted in the aortic area and left sternal border. 1/6 pansystolic murmur noted at the apex. no S3, no S4 noted. No rub noted., gallops, rubs, clicks GI: abd NT to palpation, no masses, bowel sounds present, no guarding or rigidity noted. EXT: no clubbing, (-) cyanosis, edema (-), perpheral pulses diminished (+) MUSC/SKEL: no acute joint swelling noted. Muscle strength is generally intact. NEURO: no tremors. no significant focal neurological deficits are noted., sensation grossly intact, AO x 3 PSYCH: NL mood and affect. judgment and insight noted to be intact.. SKIN: (-) rash, (-)Signs of pruritus, (-) other significant abnormality Chest wall exam: positive for my elicitable chest wall tenderness Results Laboratory Results: 10/14/16 04:08 10/14/16 04:08 10/15/16 10/15/16 09:59 09:59 Creatine Kinase 233 H CK-MB (CK-2) 0.83 Troponin I < 0.012 EKG Comments: Sinus tachycardia with increased QRS voltage and secondary ST-T wave changes most consistent with LVH, cannot rule out ischemia. Impressions: Chest/Abdomen CTA 10/12/16 00:00 IMPRESSION: NORMAL CTA OF THE CHEST. NO PULMONARY EMBOLI. Chest X-Ray 10/12/16 14:20 IMPRESSION: NO SIGNIFICANT RADIOGRAPHIC FINDING IN THE CHEST. Knee X-Ray 10/12/16 18:17 IMPRESSION: Largely chronic appearing changes. Old trauma and fracture repair. Degenerative changes. There may be a small joint effusion but no evidence of fracture. Head CT 10/12/16 18:23 IMPRESSION: 1. Chronic appearing paranasal sinus disease. 2. No acute intracranial abnormality detected. Thyroid Ultrasound 10/13/16 00:00 IMPRESSION: 11 mm nodule lower pole right lobe of the thyroid which does not meet ultrasound criteria for biopsy. Otherwise unremarkable thyroid ultrasound. Assessment & Plan - Diagnosis (1) Hypotension (arterial) Qualifiers: Hypotension type: other hypotension type Qualified Code(s): I95.89 - Other hypotension Is this a current diagnosis for this admission?: Yes (2) Chest pain Qualifiers: Chest pain type: other chest pain Qualified Code(s): R07.89 - Other chest pain; R07.8 - Other chest pain Is this a current diagnosis for this admission?: Yes (3) Hypertensive emergency without congestive heart failure Is this a current diagnosis for this admission?: Yes (5) Tobacco dependency Is this a current diagnosis for this admission?: Yes (6) Sleep disorder breathing Is this a current diagnosis for this admission?: Yes - Notes Notes: Chest pain: Patient has some typical and atypical features of chest pain. Cardiac enzymes so far has been negative. Electrocardiogram did not show any definitive ST segment changes. Multiple differential diagnoses exist in this patient. In descending order of probability this includes underlying coronary artery disease, gastroesophageal reflux, musculoskeletal pain, referred pain from elsewhere, anxiety panic disorder etc.Patient has significant cardiac risk factors, which indicates that there is a intermediate probability of chest discomfort coming from underlying CAD. Feel that it would need to be evaluated further. Discussed evaluation to assess this. In this regard risk benefits of nuclear stress test and other alternative processes were discussed in detail. The patient prefers to undergo nuclear stress test. For risk evaluation, patient is also being scheduled for a 2-D echocardiogram. Patient questions were answered. Hypotension: Happen in the setting of sublingual nitroglycerin. This tends to happen mostly in the setting of relative hypovolemia and also LVH. A 2-D echocardiogram was ordered. Agree with IV fluid bolus treatment. Currently blood pressure is stable. Hypertension: Reasonably well controlled. Blood pressure goal in this patient is 135/85 or less. This was discussed with the patient. Currently blood pressure under reasonable control. Better medication for this patient are LIONEL inhibitor/ARB/beta sonia etc. discussed side effects of uncontrolled hypertension and also severe hypotension. Tobacco abuse: Patient has history of chronic smoking. Discussed detrimental effect of chronic smoking including worsening COPD, increased risk of cardiovascular events, cerebrovascular events, cancer and multiple other side effects of smoking. Obesity: Patient advised in weight loss. Sleep disorder: Based on patient's symptoms, oropharyngeal exam, body habitus, comorbid diagnosis etc., there is high probability of underlying sleep apnea syndrome. Evaluation is recommended for sleep apnea as treatment of this condition if found is likely to benefit patient and reduce patient's future cardiovascular risk. - Time Time Spent: 30 to 50 Minutes - CODE STATUS was discussed, patient remains full code. Surrogate decision-maker patient's mother. Multiple medical problems were addressed.More than 50% of the time spent coordinating care, discussing management plans with involved caregivers. Management plans discussed with involved personnels. Medical decision making was of moderate complexity.
--- NOTE | 2016-10-15 21:47 | EKG REPORT ---
SEVERITY:- ABNORMAL ECG - SINUS RHYTHM PROBABLE LVH WITH SECONDARY REPOL ABNRM : Confirmed by: Marcelina Parra 15-Oct-2016 21:46:21
--- NOTE | 2016-10-15 21:47 | EKG REPORT ---
SEVERITY:- ABNORMAL ECG - SINUS TACHYCARDIA RIGHT ATRIAL ABNORMALITY PROBABLE LVH WITH SECONDARY REPOL ABNRM : Confirmed by: Marcelina Parra 15-Oct-2016 21:46:40
[2016-10-15 22:26] LABS: CREATINE KINASE MB 0.67 ng/mL (<4.55)
[2016-10-15 22:32] LABS: TROPONIN I < 0.012 ng/mL
[2016-10-16] MEDS: HYDRALAZINE HCL INJ/PF 20 MG/1 ML SDV IV PRN ×3 (02:26→23:47)
[2016-10-16 06:11] LABS: ABSOLUTE BASOPHILS # (AUTO) 0.1 10^3/uL (0.0-0.2); ABSOLUTE LYMPHOCYTES (AUTO) 1.5 10^3/uL (0.5-4.7); ABSOLUTE MONOCYTES (AUTO) 0.5 10^3/uL (0.1-1.4); ABSOLUTE NEUT (AUTO) 2.7 10^3/uL (1.7-8.2); BASOPHILS % (AUTO) 1.8 % (0-2); EOSINOPHILS % (AUTO) 0.2 % (0-6); HEMOGLOBIN 10.5 g/dL (12.0-15.5); HGB HCT DIFFERENCE -1.5; MEAN CORPUSCULAR HEMOGLOBIN 23.8 pg (27.0-33.4); MEAN CORPUSCULAR HGB CONC 31.8 g/dL (32.0-36.0); MEAN CORPUSCULAR VOLUME 75 fl (80-97); MONOCYTES % (AUTO) 10.1 % (3-13); RED BLOOD COUNT 4.41 10^6/uL (3.72-5.28); RED CELL DISTRIBUTION WIDTH 17.5 % (11.5-14.0); SEGMENTED NEUTROPHILS % (AUTO) 56.9 % (42-78); WHITE BLOOD COUNT 4.8 10^3/uL (4.0-10.5)
[2016-10-16 06:27] LABS: ANION GAP 8 (5-19); BLOOD UREA NITROGEN 21 mg/dL (7-20); CALCIUM 9.9 mg/dL (8.4-10.2); CARBON DIOXIDE 22 mmol/L (22-30); CHLORIDE 106 mmol/L (98-107); CHOLESTEROL 144.43 mg/dL (0-200); CREATININE RESULT 0.96 mg/dL (0.52-1.25); Direct HDL 71 mg/dL (>40); GLUCOSE 88 mg/dL (75-110); POTASSIUM 4.9 mmol/L (3.6-5.0); SODIUM 136.4 mmol/L (137-145); TRIGLYCERIDES 94 mg/dL (<150)
[2016-10-16 06:37] LABS: DIRECT LDL 52 mg/dL (<100)
[2016-10-16] MEDS: ENOXAPARIN SODIUM INJ 40 MG/0.4 ML DISP.SYRIN SUBCUT SCH (08:32)
[2016-10-16] MEDS: PREDNISONE 20 MG TABLET PO SCH (11:46)
[2016-10-16] MEDS: LISINOPRIL 10 MG TABLET PO SCH (11:47)
[2016-10-16] MEDS: ASPIRIN 325 MG TABLET, ENT COATED PO SCH (11:48)
[2016-10-16] MEDS: METOPROLOL SUCCINATE 50 MG TAB.SR.24H PO SCH ×2 (11:48→21:48)
[2016-10-16] MEDS: AMLODIPINE BESYLATE 5 MG TABLET PO SCH (11:48)
[2016-10-16] MEDS: FERROUS SULFATE 325 MG TABLET PO SCH (11:48)
[2016-10-16] MEDS: DOCUSATE SODIUM 100 MG CAPSULE PO SCH ×2 (11:48→17:39)
[2016-10-16] MEDS: HYDROCHLOROTHIAZIDE 25 MG TABLET PO SCH (11:49)
[2016-10-16] MEDS: OXYCODONE HCL IR 5 MG TABLET PO PRN ×3 (11:49→23:50)
[2016-10-16] MEDS: SERTRALINE HCL 50 MG TABLET PO SCH (11:49)
[2016-10-16] MEDS: DOXYCYCLINE HYCLATE 100 MG TABLET PO SCH ×2 (11:55→21:50)
[2016-10-16] MEDS ORDERED: REGADENOSON INJ 0.4 MG/5 ML DISP.SYRIN IV ONE (13:06)
--- NOTE | 2016-10-16 13:09 | DRAGON STRESS TEST REPORT ---
INTRAVENOUS LEXISCAN CARDIOLITE STRESS TEST USING SINGLE PHOTON EMMISION COMPUTERIZED TOMOGRAPHIC. DATE OF PROCEDURE: October 16, 2016 INDICATION : Chest pain CARDIAC RISK FACTORS: Hypertension RESTING EKG: Sinus rhythm, increased QRS reported with secondary ST-T wave changes consistent with LVH STRESS EKG: No significant changes noted with LexiScan bolus REASON FOR TERMINATION: Protocol. PROCEDURE REPORT: Baseline heart rate 96 beats per minute with blood pressure of 133/93. Patient had no significant complaints. Heart rate at 2 minutes post bolus 116 with a blood pressure of 151/93. 3 minutes post bolus heart rate 112 with blood pressure of 145/95. No significant EKG changes were noted. Patient had no significant complaints during the procedure or postprocedure. CONCLUSIONS: Normal EKG and hemodynamic response to IV LexiScan. NUCLEAR DATA: At rest the patient was given 15.24 millicuries of technetium 99 sestamibi injected intravenously. As per protocol rest gated SPECT images were obtained. Subsequently the patient was given intravenous LexiScan at a dose of 0.4 mg in 5 mL intravenously, followed by flush with normal saline. Subsequently the stress dose of 45.5 millicuries of technetium 99 sestamibi was injected intravenously. As per protocol stress gated images were obtained. NUCLEAR INTERPRETATION: Both raw and processed data were used for interpretation. Visual, qualitative, computer-generated quantitative data was used. There was good myocardial uptake of technetium compound. Motion artifact and soft tissue attenuations were noted. Increased visceral uptake was noted. Significant breast attenuation artifacts were noted. This did cause some difficulty with interpretation. No definitive areas of transient perfusion defect noted. No definitive areas of fixed perfusion defect or scars noted. EKG gated imaging showed LV EF at 37 %, rest and stress gated EF similar visually. T. I D. ratio was 1.18. Lung heart ratio noted to be within normal limits 0.26. No significant extracardiac and abnormal radiotracer activities were noted. RV free wall uptake was noted to be normal. IMPRESSION: Also refer to comments under nuclear interpretation. Also test results needs to be interpreted in the context of pretest probability. 1. There is no definitive scintigraphic evidence of LexiScan induced myocardial ischemia. 2. There is no definitive scintigraphic evidence of myocardial infarction/scar. 3. EKG gated imaging shows left ejection fraction of approximately 37 %. 4. Clinical correlation requested as occasionally single vessel disease or balanced ischemia could be missed. In approximately 10% of the cases Lexiscan may not cause adequate vasodilatory stress. RECOMMENDATIONS: Aggressive risk factor modification, medical therapy. Clinical correlation with echocardiogram derived ejection fraction. Inability to exercise by itself can lead to increased cardiovascular event risks. Consider cardiology consultation if clinically indicated. I AM AVAILABLE FOR CARDIOLOGY CONSULTATION AND FOLLOWUP IF REQUESTED BY PMD Marcelina Parra M.D., [employer] Manager Applied apprentice photographer, Board certified in cardiovascular diseases, Nuclear cardiology, Echocardiography Cardiac CT and cardiac MRI Ph. [phone] [facility]
--- NOTE | 2016-10-16 15:46 | PDOC PROGRESS REPORT ---
Subjective Progress Note for:: 10/16/16 Subjective:: The patient denies any further chest pain. She had a Cardiolite stress test that was negative for any reversible ischemia. Physical Exam Vital Signs: Temp Pulse Resp BP Pulse Ox 98.4 F 99 19 147/106 H 98 10/16/16 11:41 10/16/16 11:41 10/16/16 11:41 10/16/16 11:41 10/16/16 11:41 Intake & Output 10/15/16 10/16/16 10/17/16 06:59 06:59 06:59 Intake Total 1133 1679 118 Output Total 3100 1650 Balance -1966 29 118 Weight 138 kg 137.9 kg General appearance: PRESENT: no acute distress Eye exam: PRESENT: conjunctiva pink. ABSENT: scleral icterus Ear exam: PRESENT: normal external ear exam Mouth exam: PRESENT: moist, tongue midline Neck exam: ABSENT: JVD Respiratory exam: PRESENT: clear to auscultation vitor. ABSENT: rales, rhonchi, wheezes Cardiovascular exam: PRESENT: RRR. ABSENT: diastolic murmur, rubs, systolic murmur GI/Abdominal exam: PRESENT: normal bowel sounds, soft. ABSENT: distended, guarding, mass, organolmegaly, rebound, tenderness Extremities exam: ABSENT: calf tenderness, clubbing, pedal edema Neurological exam: PRESENT: alert, awake, oriented to person, oriented to place , oriented to time, oriented to situation Psychiatric exam: PRESENT: appropriate affect Skin exam: PRESENT: dry, intact, warm. ABSENT: cyanosis, rash Results Laboratory Results: 10/16/16 05:26 10/16/16 05:26 10/13/16 10/16/16 10/16/16 04:50 05:26 05:26 WBC 4.8 RBC 4.41 Hgb 10.5 L Hct 33.0 L MCV 75 L MCH 23.8 L MCHC 31.8 L RDW 17.5 H Plt Count 414 Seg Neutrophils % 56.9 Lymphocytes % 31.0 Monocytes % 10.1 Eosinophils % 0.2 Basophils % 1.8 Absolute Neutrophils 2.7 Absolute Lymphocytes 1.5 Absolute Monocytes 0.5 Absolute Eosinophils 0.0 Absolute Basophils 0.1 Sodium 136.4 L Potassium 4.9 Chloride 106 Carbon Dioxide 22 Anion Gap 8 BUN 21 H Creatinine 0.96 Est GFR ( Amer) > 60 Est GFR (Non-Af Amer) > 60 Glucose 88 Calcium 9.9 Transferrin 310 Triglycerides 94 Cholesterol 144.43 LDL Cholesterol Direct 52 VLDL Cholesterol 19.0 HDL Cholesterol 71 10/13/16 11:00 Sputum Gram Stain - Final 10/13/16 11:00 Sputum Sputum Culture - Final NORMAL TOMASZ 10/15/16 10/15/16 10/15/16 09:59 09:59 15:45 Creatine Kinase 233 H 212 H CK-MB (CK-2) 0.83 Troponin I < 0.012 10/15/16 10/15/16 10/15/16 15:45 21:20 21:20 Creatine Kinase 174 H CK-MB (CK-2) 0.72 0.67 Troponin I < 0.012 < 0.012 Impressions: Chest/Abdomen CTA 10/12/16 00:00 IMPRESSION: NORMAL CTA OF THE CHEST. NO PULMONARY EMBOLI. Chest X-Ray 10/12/16 14:20 IMPRESSION: NO SIGNIFICANT RADIOGRAPHIC FINDING IN THE CHEST. Knee X-Ray 10/12/16 18:17 IMPRESSION: Largely chronic appearing changes. Old trauma and fracture repair. Degenerative changes. There may be a small joint effusion but no evidence of fracture. Head CT 10/12/16 18:23 IMPRESSION: 1. Chronic appearing paranasal sinus disease. 2. No acute intracranial abnormality detected. Thyroid Ultrasound 10/13/16 00:00 IMPRESSION: 11 mm nodule lower pole right lobe of the thyroid which does not meet ultrasound criteria for biopsy. Otherwise unremarkable thyroid ultrasound. Assessment & Plan - Diagnosis (1) Hypertension Qualifiers: Hypertension type: essential hypertension Qualified Code(s): I10 - Essential (primary) hypertension Is this a current diagnosis for this admission?: YesPlan: The patient still has elevated blood pressures but they are improving. Nursing staff has been asked to check orthostatics. Given the fact that she had some significant hypotension after getting nitroglycerin makes me suspicious that she could possibly have autonomic insufficiency. If she does not have orthostatic changes we will increase her antihypertensives. (2) Chest pain Qualifiers: Chest pain type: other chest pain Qualified Code(s): R07.89 - Other chest pain; R07.8 - Other chest pain Is this a current diagnosis for this admission?: YesPlan: Patient had a normal Lexiscan stress test today. The patient had a normal ejection fraction on her echo done earlier during the hospitalization and the stress test today showed ejection fraction of 37% which is probably incorrect. (3) Acute bronchitis Is this a current diagnosis for this admission?: YesPlan: Continue with doxycycline. (4) Anemia Is this a current diagnosis for this admission?: YesPlan: Stable (5) Anxiety Is this a current diagnosis for this admission?: YesPlan: Stable - Time Time Spent with patient: 25-34 minutes - Inpatient Certification Medical Necessity: Need Close Monitoring Due to Risk of Patient Decompensation - Plan Summary Plan Summary: If her blood pressure remains under adequate control we will plan on discharge home tomorrow.
--- NOTE | 2016-10-16 22:43 | PDOC PROGRESS REPORT ---
Subjective Progress Note for:: 10/16/16 Subjective:: Patient seems to be doing better with gradual improvement. Pt is denying any chest arm or neck discomfort. Patient denying any PND, orthopnea. Patient denied any sustained palpitations, dizziness, syncope, near syncope. Patient denying any fever chills. Patient denying any other significant discomfort. Patient is maintaining sinus rhythm. Review of systems: Rest review of systems negative. Medications: Medications have been reviewed. Nuclear stress test procedure was explained to the patient in detail. Risks benefits were discussed and informed consent was obtained. Alternatives were discussed. Patient informed that based on risk factors, physical exam, lab data findings and symptoms there is at least intermediate probability of underlying CAD. Nuclear stress test procedure was therefore scheduled. Physical Exam Vital Signs: Temp Pulse Resp BP Pulse Ox 98.3 F 94 18 148/124 H 97 10/16/16 15:04 10/16/16 16:48 10/16/16 16:37 10/16/16 16:48 10/16/16 16:37 Intake & Output 10/15/16 10/16/16 10/17/16 06:59 06:59 06:59 Intake Total 1133 1679 336 Output Total 3100 1650 Balance -1967 29 336 Weight 138 kg 137.9 kg Exam: GENERAL: well-nourished and in no acute distress. Alert and oriented x3 HEAD: Atraumatic, normocephalic. EYES: Pupils equal round and reactive to light, extraocular movements intact, sclera anicteric, conjunctiva are normal. ENT: TMs normal, nares patent, oropharynx clear without exudates. Moist mucous membranes. No oral ulcerations or bleeding gums noted NECK: supple without lymphadenopathy. Trachea is central. No cervical or axillary lymphadenopathy noted. Carotids are 2+, JVD WNL LUNGS: Respiration seems nonlabored, no significant accessory muscle action noted. Breath sounds clear to auscultation bilaterally and equal noted. No wheezes rales or rhonchi noted. No significant dullness noted on percussion. CHEST: Palpation of the chest wall shows no significant chest wall tenderness. No other significant abnormalities noted. HEART: [place] [employer] [employer], No PSH, 1/6 ADRI aortic area, 1/6 sabillon systolic murmur mitral area, no rubs, no gallops. ABDOMEN: Soft, no significant tenderness appreciated, normoactive bowel sounds. No guarding, no rebound. No rigidity noted . No masses appreciated. EXTREMITIES: Pedal pulses are 1-2+, no calf tenderness noted. No clubbing or cyanosis.trace to 1+ pedal edema noted NEUROLOGICAL: Focused neurological exam showed no significant neurologic deficit. Normal speech, no focal weakness appreciated. PSYCH: Normal mood, normal affect. Judgment and insight within normal limits. SKIN: No significant ecchymosis, rash, ulcerations or signs of pruritus noted. MUSCULOSKELETAL EXAM: No significant joint swelling noted. Results Laboratory Results: 10/16/16 05:26 10/16/16 05:26 10/13/16 10/16/16 10/16/16 04:50 05:26 05:26 WBC 4.8 RBC 4.41 Hgb 10.5 L Hct 33.0 L MCV 75 L MCH 23.8 L MCHC 31.8 L RDW 17.5 H Plt Count 414 Seg Neutrophils % 56.9 Lymphocytes % 31.0 Monocytes % 10.1 Eosinophils % 0.2 Basophils % 1.8 Absolute Neutrophils 2.7 Absolute Lymphocytes 1.5 Absolute Monocytes 0.5 Absolute Eosinophils 0.0 Absolute Basophils 0.1 Sodium 136.4 L Potassium 4.9 Chloride 106 Carbon Dioxide 22 Anion Gap 8 BUN 21 H Creatinine 0.96 Est GFR ( Amer) > 60 Est GFR (Non-Af Amer) > 60 Glucose 88 Calcium 9.9 Transferrin 310 Triglycerides 94 Cholesterol 144.43 LDL Cholesterol Direct 52 VLDL Cholesterol 19.0 HDL Cholesterol 71 10/13/16 11:00 Sputum Gram Stain - Final 10/13/16 11:00 Sputum Sputum Culture - Final NORMAL TOMASZ 10/15/16 10/15/16 10/15/16 09:59 09:59 15:45 Creatine Kinase 233 H 212 H CK-MB (CK-2) 0.83 Troponin I < 0.012 10/15/16 10/15/16 10/15/16 15:45 21:20 21:20 Creatine Kinase 174 H CK-MB (CK-2) 0.72 0.67 Troponin I < 0.012 < 0.012 Impressions: Chest/Abdomen CTA 10/12/16 00:00 IMPRESSION: NORMAL CTA OF THE CHEST. NO PULMONARY EMBOLI. Chest X-Ray 10/12/16 14:20 IMPRESSION: NO SIGNIFICANT RADIOGRAPHIC FINDING IN THE CHEST. Knee X-Ray 10/12/16 18:17 IMPRESSION: Largely chronic appearing changes. Old trauma and fracture repair. Degenerative changes. There may be a small joint effusion but no evidence of fracture. Head CT 10/12/16 18:23 IMPRESSION: 1. Chronic appearing paranasal sinus disease. 2. No acute intracranial abnormality detected. Thyroid Ultrasound 10/13/16 00:00 IMPRESSION: 11 mm nodule lower pole right lobe of the thyroid which does not meet ultrasound criteria for biopsy. Otherwise unremarkable thyroid ultrasound. Assessment & Plan - Diagnosis (1) Hypotension (arterial) Qualifiers: Hypotension type: other hypotension type Qualified Code(s): I95.89 - Other hypotension Is this a current diagnosis for this admission?: Yes (2) Chest pain Qualifiers: Chest pain type: other chest pain Qualified Code(s): R07.89 - Other chest pain; R07.8 - Other chest pain Is this a current diagnosis for this admission?: Yes (3) Hypertensive emergency without congestive heart failure Is this a current diagnosis for this admission?: Yes (5) Tobacco dependency Is this a current diagnosis for this admission?: Yes (6) Sleep disorder breathing Is this a current diagnosis for this admission?: Yes - Notes Notes: Hypotension: Resolved. Related to nitroglycerin in setting of relative hypovolemia and LVH. Chest pain: Resolved no recurrence. Nuclear stress test negative. Hypertensive emergency: Blood pressure under better control. Elevation and advised to compliance. Noncompliance with medication and dietary restriction: Patient advised compliance. Tobacco abuse: Patient advised against smoking. Obesity: Patient advised to lose weight. Sleep disordered breathing: Patient encouraged to schedule a sleep study. Patient also encouraged in weight loss. Chest pain: Patient claims chest pain is resolved. This was evaluated with a nuclear stress test. Nuclear stress test was negative for any significant areas of ischemia or any significant areas of scar. The nuclear stress test is felt to be relatively low risk. Patient informed that occasionally single- vessel disease and balanced ischemia could be missed. Patient advised aggressive risk factor modification and medical therapy. Patient informed that further evaluation may become necessary if symptoms worsens or there is a development of new symptoms indicative of angina or angina equivalent symptom. - Time Time with patient: Greater than 35 minutes - Patient was seen multiple times. Total time exceeds 40 minutes. In the morning nuclear stress test procedure, risks benefits, alternatives were discussed. Patient seen during the stress test. Patient also seen after stress test when results were discussed with the patient in detail. Patient's questions were answered. Nuclear stress test results were discussed with the patient. Patient was informed that no definitive evidence of pharmacologic stress-induced ischemia noted. No definite fixed defects were noted. Patient informed that occasionally significant single vessel disease or balanced ischemia could be missed. However based on the current study results, would recommend aggressive risk factor modification and medical therapy. It may also be worthwhile to consider evaluation or empiric management of other causes of chest pain. Should no other cause be found and if persistent in having chest pain, then cardiac catheterization should be considered. Right now, recommendations are for aggressive risk factor modification and medical management. Medications reviewed and adjusted accordingly: Yes
--- NOTE | 2016-10-16 23:58 | EKG REPORT ---
SEVERITY:- ABNORMAL ECG - SINUS TACHYCARDIA RIGHT ATRIAL ABNORMALITY CONSIDER LEFT VENTRICULAR HYPERTROPHY ABNORMAL T, CONSIDER ISCHEMIA, DIFFUSE LEADS : Confirmed by: Marcelina Parra 16-Oct-2016 23:57:12
--- NOTE | 2016-10-16 23:58 | EKG REPORT ---
SEVERITY:- ABNORMAL ECG - SINUS TACHYCARDIA BIATRIAL ABNORMALITIES PROBABLE LEFT VENTRICULAR HYPERTROPHY : Confirmed by: Marcelina Parra 16-Oct-2016 23:57:01
[2016-10-17] MEDS: ENOXAPARIN SODIUM INJ 40 MG/0.4 ML DISP.SYRIN SUBCUT SCH (08:24)
[2016-10-17] MEDS: OXYCODONE HCL IR 5 MG TABLET PO PRN (08:24)
[2016-10-17] MEDS: DOCUSATE SODIUM 100 MG CAPSULE PO SCH (09:54)
[2016-10-17] MEDS: SERTRALINE HCL 50 MG TABLET PO SCH (09:54)
[2016-10-17] MEDS: PREDNISONE 20 MG TABLET PO SCH (09:54)
[2016-10-17] MEDS: DOXYCYCLINE HYCLATE 100 MG TABLET PO SCH (09:55)
[2016-10-17] MEDS: HYDROCHLOROTHIAZIDE 25 MG TABLET PO SCH (09:55)
[2016-10-17] MEDS: LISINOPRIL 10 MG TABLET PO SCH (09:56)
[2016-10-17] MEDS: FERROUS SULFATE 325 MG TABLET PO SCH (09:56)
[2016-10-17] MEDS: ASPIRIN 325 MG TABLET, ENT COATED PO SCH (09:57)
[2016-10-17] MEDS: AMLODIPINE BESYLATE 5 MG TABLET PO SCH (09:57)
[2016-10-17] MEDS ORDERED: METOPROLOL SUCCINATE 50 MG TAB.SR.24H PO SCH (10:00)
[2016-10-17] MEDS ORDERED: HYDRALAZINE HCL 25 MG TABLET PO SCH (10:00)
[2016-10-17 11:30] VITALS: BP 172/114
--- NOTE | 2016-10-17 12:12 | PDOC DISCHARGE SUMMARY ---
General - Admit/Disc Date/PCP Admission Date/Primary Care Provider: 10/12/16 21:17 SHILO NICHOLS MD Discharge Date: 10/17/16 - Discharge Diagnosis (1) Hypertension Is this a current diagnosis for this admission?: Yes (2) Chest pain Is this a current diagnosis for this admission?: YesSummary: Negative Cardiolite stress test. (3) Acute bronchitis Is this a current diagnosis for this admission?: YesSummary: Treated with doxycycline (4) Anemia Is this a current diagnosis for this admission?: Yes (5) Anxiety Is this a current diagnosis for this admission?: Yes - Additional Information Resuscitation Status: Full Code Discharge Diet: Cardiac Discharge Activity: Activity As Tolerated Home Medications: Lisinopril/Hydrochlorothiazide [Zestoretic 20-25 mg Tablet] 1 tab PO DAILY 10/12 Sertraline HCl [Zoloft] 25 mg PO DAILY 10/12/16 Amlodipine Besylate [Norvasc 5 mg Tablet] 5 mg PO DAILY #30 tablet 10/17/16 Aspirin [Ecotrin 325 mg EC Tablet] 325 mg PO DAILY tabec 10/17/16 Doxycycline Hyclate [Vibramycin 100 mg Tablet] 100 mg PO Q12 #10 tablet Ferrous Sulfate [Feosol 325 mg Tablet] 325 mg PO DAILY tablet 10/17/16 Hydralazine HCl [Apresoline 25 mg Tablet] 25 mg PO Q12 #60 tablet 10/17/16 Metoprolol Succinate [Toprol Xl 50 mg Tab.sr] 100 mg PO Q12 #60 tab.sr.24h 10/17 Oxycodone HCl/Acetaminophen [Percocet 5-325 mg Tablet] 1 tab PO Q12H PRN #20 tablet 10/17/16 Prednisone [Deltasone 20 mg Tablet] 10 mg PO DAILY #21 tablet 10/17/16 History of Present Illness History of Present Illness: MARIO ALBERTO SERRANO is a 40 year old female who presented with a productive cough consistent with acute bronchitis who also was found to have very elevated blood pressures was admitted for uncontrolled hypertension. Hospital Course Hospital Course: 40-year-old female who presented with a productive cough found to have acute bronchitis and also uncontrolled hypertension. The patient had her blood pressure medications increased and hydralazine was added on. Patient did experience some chest pain and was seen by cardiology who performed a stress test which was negative for any reversible ischemia. Patient's blood pressure was still elevated however was improved and was felt that she was stable for discharge. Physical Exam Vital Signs: Temp Pulse Resp BP Pulse Ox 98.6 F 98 16 172/114 H 96 10/17/16 11:29 10/17/16 11:29 10/17/16 11:29 10/17/16 11:29 10/17/16 11:29 Intake & Output 10/16/16 10/17/16 10/18/16 06:59 06:59 06:59 Intake Total 1679 1358 Output Total 1650 3400 Balance Weight 137.9 kg 137.4 kg General appearance: PRESENT: no acute distress Eye exam: PRESENT: conjunctiva pink. ABSENT: scleral icterus Mouth exam: PRESENT: moist, tongue midline Neck exam: ABSENT: carotid bruit, JVD, lymphadenopathy, thyromegaly Respiratory exam: PRESENT: clear to auscultation vitor. ABSENT: rales, rhonchi, wheezes Cardiovascular exam: PRESENT: RRR. ABSENT: diastolic murmur, rubs, systolic murmur GI/Abdominal exam: PRESENT: normal bowel sounds, soft. ABSENT: distended, guarding, mass, organolmegaly, rebound, tenderness Extremities exam: ABSENT: calf tenderness, clubbing, pedal edema Neurological exam: PRESENT: alert, awake, oriented to person, oriented to place , oriented to time, oriented to situation Psychiatric exam: PRESENT: appropriate affect Skin exam: PRESENT: dry, intact, warm. ABSENT: cyanosis, rash Results Laboratory Results: 10/16/16 05:26 10/16/16 05:26 10/15/16 10/15/16 10/15/16 09:59 09:59 15:45 Creatine Kinase 233 H 212 H CK-MB (CK-2) 0.83 Troponin I < 0.012 10/15/16 10/15/16 10/15/16 15:45 21:20 21:20 Creatine Kinase 174 H CK-MB (CK-2) 0.72 0.67 Troponin I < 0.012 < 0.012 Impressions: Chest/Abdomen CTA 10/12/16 00:00 IMPRESSION: NORMAL CTA OF THE CHEST. NO PULMONARY EMBOLI. Chest X-Ray 10/12/16 14:20 IMPRESSION: NO SIGNIFICANT RADIOGRAPHIC FINDING IN THE CHEST. Knee X-Ray 10/12/16 18:17 IMPRESSION: Largely chronic appearing changes. Old trauma and fracture repair. Degenerative changes. There may be a small joint effusion but no evidence of fracture. Head CT 10/12/16 18:23 IMPRESSION: 1. Chronic appearing paranasal sinus disease. 2. No acute intracranial abnormality detected. Thyroid Ultrasound 10/13/16 00:00 IMPRESSION: 11 mm nodule lower pole right lobe of the thyroid which does not meet ultrasound criteria for biopsy. Otherwise unremarkable thyroid ultrasound. Qualifiers PATEINT BEING DISCHARGED WITH ANY OF THE FOLLOWING DIAGNOSIS?: No Plan Discharge Plan: Patient is discharged home and will follow up with primary care in 2 weeks. Time Spent: Greater than 30 Minutes
== END 2016-10-17 12:21 | disposition home or self-care (01) | DRG 305 ==
LOC: ER 13:48 → EH 21:17 → UNDOADMIN 21:29 → ICU 22:08 → 3W 10-13 19:36
PROVIDERS: ADMIT Family Medicine; ATTEND Family Medicine
DX: I16.1 Hypertensive emergency (principal); Z68.41 Body mass index [BMI] 40.0-44.9, adult; J20.9 Acute bronchitis, unspecified; J06.9 Acute upper respiratory infection, unspecified; F17.210 Nicotine dependence, cigarettes, uncomplicated; R07.89 Other chest pain; M19.90 Unspecified osteoarthritis, unspecified site; R79.1 Abnormal coagulation profile; D64.9 Anemia, unspecified; E66.01 Morbid (severe) obesity due to excess calories; F32.9 Major depressive disorder, single episode, unspecified; M25.561 Pain in right knee; F41.1 Generalized anxiety disorder; G47.9 Sleep disorder, unspecified; E04.1 Nontoxic single thyroid nodule; D25.9 Leiomyoma of uterus, unspecified; G89.29 Other chronic pain; I95.89 Other hypotension; Z91.19 Patient's noncompliance with other medical treatment and regimen; Z79.899 Other long term (current) drug therapy; Z98.51 Tubal ligation status
CPT/HCPCS: 36415; 70450; 71020; 71275; 76536; 78452; 80048; 80053; 80061; 80307; 81001; 82550; 82553; 82607; 82728; 82746; 83540; 83550; 83605; 83735; 84443; 84466; 84484; 84703; 85025; 85045; 85379; 87040; 87070; 87205; 87804; 90686; 93005; 93010; 93017; 93306; 94640; 94799; 96361; 96365; 96375; 99285; A9500; J0360; J0456; J0696; J1650; J2785; J3475; J3490; J7030; J7060; J7512; J7620; Q9969

== ENCOUNTER 2016-11-01 07:46 | Emergency (ER) | payer MEDICAID ==
[2016-11-01 09:05] LABS: ABSOLUTE BASOPHILS # (AUTO) 0.1 10^3/uL (0.0-0.2); ABSOLUTE EOSINOPHILS # (AUTO) 0.1 10^3/uL (0.0-0.6); ABSOLUTE LYMPHOCYTES (AUTO) 1.8 10^3/uL (0.5-4.7); ABSOLUTE MONOCYTES (AUTO) 0.7 10^3/uL (0.1-1.4); ABSOLUTE NEUT (AUTO) 8.5 10^3/uL (1.7-8.2); BASOPHILS % (AUTO) 0.9 % (0-2); EOSINOPHILS % (AUTO) 0.7 % (0-6); HEMATOCRIT 32.3 % (36.0-47.0); HEMOGLOBIN 10.1 g/dL (12.0-15.5); LYMPHOCYTES % (AUTO) 16.1 % (13-45); MEAN CORPUSCULAR HEMOGLOBIN 23.8 pg (27.0-33.4); MEAN CORPUSCULAR HGB CONC 31.4 g/dL (32.0-36.0); MEAN CORPUSCULAR VOLUME 76 fl (80-97); MONOCYTES % (AUTO) 6.1 % (3-13); RED BLOOD COUNT 4.26 10^6/uL (3.72-5.28); RED CELL DISTRIBUTION WIDTH 18.3 % (11.5-14.0); SEGMENTED NEUTROPHILS % (AUTO) 76.2 % (42-78); WHITE BLOOD COUNT 11.2 10^3/uL (4.0-10.5)
[2016-11-01 09:35] LABS: APPEARANCE,URINE SLIGHTLY-CLOUDY; BILIRUBIN,URINE NEGATIVE (NEGATIVE); GLUCOSE, URINE NEGATIVE (NEGATIVE); KETONES,URINE NEGATIVE (NEGATIVE); LEUKOCYTE ESTERASE,URINE NEGATIVE (NEGATIVE); NITRITE,URINE NEGATIVE (NEGATIVE); PROTEIN,URINE NEGATIVE (NEGATIVE); URINE SPECIFIC GRAVITY 1.011; UROBILINOGEN,URINE NEGATIVE mg/dL (<2.0)
[2016-11-01 10:23] LABS: ALANINE AMINOTRANSFERASE 21 U/L (9-52); ALKALINE PHOSPHATASE 84 U/L (38-126); ANION GAP 12 (5-19); ASPARTATE AMINO TRANSFERASE 10 U/L (14-36); BILIRUBIN,TOTAL 0.4 mg/dL (0.2-1.3); BLOOD UREA NITROGEN 15 mg/dL (7-20); CALCIUM 9.8 mg/dL (8.4-10.2); CARBON DIOXIDE 23 mmol/L (22-30); CHLORIDE 100 mmol/L (98-107); CREATININE RESULT 1.13 mg/dL (0.52-1.25); GLUCOSE 90 mg/dL (75-110); LIPASE 29.4 U/L (23-300); SODIUM 134.9 mmol/L (137-145); TOTAL PROTEIN 7.2 g/dL (6.3-8.2)
--- NOTE | 2016-11-01 12:19 | ER Document Report ---
ED GI/ - General Chief Complaint: Lower Abdominal Pain Stated Complaint: ABDOMINAL PAIN Mode of Arrival: Ambulatory Information source: Patient Notes: 40-year-old female presents to the emergency department complaining of generalized abdominal pain over the last 2 days. Patient reports non provoked, cramping type pain to her whole abdomen. Reports has had abdominal pain intermittently for the past year however over the last few days seems to have become worse. Patient describes pain quality similar to menstrual cramps but involve her whole abdomen and radiates to her bilateral lower back. Reports history of uterine fibroids and hypertension. LMP 10/21/16. Denies fever, nausea or vomiting, vaginal bleeding or discharge, dysuria, or hematuria. TRAVEL OUTSIDE OF THE [place] IN LAST 30 DAYS: No - HPI Patient complains to provider of: Abdominal pain Timing/Duration: Intermittent, Persistent Quality of pain: Cramping Severity at maximum: Moderate Severity in ED: Mild Pain Level: 2 Vaginal bleeding (Compared to normal period): None Similar symptoms previously: Yes Recently seen / treated by doctor: No - Related Data Allergies/Adverse Reactions: No Known Allergies Allergy (Verified 11/01/16 07:51) Past Medical History - General Information source: Patient - Social History Smoking Status: Current Every Day Smoker Chew tobacco use (# tins/day): No Frequency of alcohol use: Occasional Drug Abuse: None Lives with: Family Family History: Reviewed & Not Pertinent Patient has suicidal ideation: No Patient has homicidal ideation: No - Past Medical History Cardiac Medical History: Reports: Hx Hypertension Denies: Hx Congestive Heart Failure, Hx DVT, Hx Heart Attack, Hx Hypercholesterolemia, Hx Pulmonary Embolism Pulmonary Medical History: Denies: Hx Asthma, Hx COPD, Hx Tuberculosis Neurological Medical History: Denies: Hx Seizures Endocrine Medical History: Denies: Hx Diabetes Mellitus Type 1, Hx Diabetes Mellitus Type 2, Hx Hyperthyroidism, Hx Hypothyroidism Renal/ Medical History: Denies: Hx Peritoneal Dialysis GI Medical History: Denies: Hx Cirrhosis, Hx Gastroesophageal Reflux Disease, Hx Hepatitis Musculoskeltal Medical History: Reports Hx Arthritis - Osteoarthritis Skin Medical History: Denies Hx Eczema, Denies Hx Psoriasis Psychiatric Medical History: Reports: Hx Depression Infectious Medical History: Denies: Hx Hepatitis Past Surgical History: Reports: Hx Section, Hx Orthopedic Surgery - right knee, Hx Tubal Ligation. Denies: Hx Hysterectomy, Hx Pacemaker - Immunizations Hx Diphtheria, Pertussis, Tetanus Vaccination: Yes Review of Systems - Review of Systems Constitutional: No symptoms reported EENT: No symptoms reported Cardiovascular: No symptoms reported Respiratory: No symptoms reported Gastrointestinal: See HPI Genitourinary: No symptoms reported Female Genitourinary: No symptoms reported Musculoskeletal: No symptoms reported Skin: No symptoms reported Hematologic/Lymphatic: No symptoms reported Neurological/Psychological: No symptoms reported -: Yes All other systems reviewed and negative Physical Exam - Vital signs Vitals: Temp Pulse Resp BP Pulse Ox 98.0 F 103 H 16 148/103 H 100 11/01/16 07:54 11/01/16 07:54 11/01/16 07:54 11/01/16 07:54 11/01/16 07:54 Interpretation: Normal - General General appearance: Appears well, Alert In distress: None - HEENT Head: Normocephalic, Atraumatic Eyes: Normal Pupils: PERRL - Respiratory Respiratory status: No respiratory distress Chest status: Nontender Breath sounds: Normal Chest palpation: Normal - Cardiovascular Rhythm: Regular Heart sounds: Normal auscultation Murmur: No Pulses: Normal: Radial Normal capillary refill: Yes - Abdominal Inspection: Normal, Obese Distension: No distension Bowel sounds: Normal Tenderness: Tender - Patient complains of mild diffuse tenderness with palpation. No point tenderness, rebound, guarding.. No: Nontender, McBurney's point, Carrera's sign, Guarding, Rebound, Other Organomegaly: No organomegaly - Back Back: Normal, Nontender. No: Tender, Deformity/step-off, CVA tenderness, Vertebra tenderness, Scars, Scoliosis, Wounds, Other - Extremities General upper extremity: Normal inspection, Nontender, Normal color, Normal ROM , Normal temperature General lower extremity: Normal inspection, Nontender, Normal color, Normal ROM , Normal temperature, Normal weight bearing. No: Nathanael's sign - Neurological Neuro grossly intact: Yes Cognition: Normal Orientation: AAOx4 Aniya Coma Scale Eye Opening: Spontaneous [place] Coma Scale Verbal: Oriented [place] Coma Scale Motor: Obeys Commands [place] Coma Scale Total: 15 Speech: Normal Motor strength normal: LUE, RUE, LLE, RLE Sensory: Normal - Psychological Associated symptoms: Normal affect, Normal mood - Skin Skin Temperature: Warm Skin Moisture: Dry Skin Color: Normal Course - Re-evaluation Re-evalutation: 11/01/16 12:25 Patient hemodynamically stable, in no distress, afebrile, nontoxic, and appears well-hydrated. Labs unremarkable, patient tolerating oral fluids without difficulty or vomiting, hCG negative. Patient presentation and findings not suggestive of peritonitis or other emergent GI/ etiology at this time. Patient appears stable for discharge and agrees with home care, follow-up with PCP, ED return precautions. Patient presentation, findings, ED care, and plan were discussed with ED physician Dr. Knight who concurs with evaluation and treatment. - Vital Signs Vital signs: Temp Pulse Resp BP Pulse Ox 98.5 F 87 18 148/101 H 100 11/01/16 12:20 11/01/16 12:20 11/01/16 12:20 11/01/16 12:20 11/01/16 12:20 - Laboratory Result Diagrams: 11/01/16 08:30 11/01/16 09:28 Laboratory results interpreted by me: 11/01/16 11/01/16 08:30 09:28 WBC 11.2 H Hgb 10.1 L Hct 32.3 L MCV 76 L MCH 23.8 L MCHC 31.4 L RDW 18.3 H Plt Count 454 H Absolute Neutrophils 8.5 H Sodium 134.9 L Est GFR (Non-Af Amer) 53 L AST 10 L Discharge - Discharge Clinical Impression: Abdominal pain Qualifiers: Abdominal location: generalized Qualified Code(s): R10.84 - Generalized abdominal pain Condition: Stable Disposition: HOME, SELF-CARE Additional Instructions: ABDOMINAL PAIN: There are many causes of abdominal pain. Pain can mean a serious problem requiring surgery (such as appendicitis). It can also be an innocent problem that goes away on its own (such as a viral infection). Often, time must pass to determine the cause of pain. The physician does not feel that hospitalization is necessary, at present. Things may change within the next 24 hours. Call the doctor or come back for re- examination if any problems occur, such as: (1) Pain that becomes more severe, steady, or becomes concentrated in one specific area. Also, pain that is more severe with movement or coughing. (2) Vomiting that persists or becomes more frequent. (3) Blood in the vomitus, urine, or bowel movements. Blood in the stool may have a tarry or black appearance. (4) Shaking chills or fever greater than 100 degrees F. (5) The abdomen becomes more distended or swollen. (6) Bowel movements cease. (7) Failure to improve as expected. NORMAL EXAM AND WORKUP: At this time, your examination and workup show no significant abnormality. No significant abnormal physical findings are noted. All laboratory, EKG, and imaging (x-ray, CT scans, ultrasound) studies that were ordered show no significant abnormality. Although your examination and all studies that were ordered showed no significant abnormal finding, there are no examinations and no studies that are 100% accurate. There is always the possibility that some abnormality could exist and not be detected with physical examination or within the limits and capabilities of laboratory and other studies. You should return or follow up as you were instructed on your visit today for further evaluation if your symptoms do not resolve. ANTISPASMODICS: You have been given a prescription for an antispasmodic medicine. This type of drug is used to decrease cramping and pain in the intestines. It is also used to decrease secretion of internal fluids (such as stomach acid in ulcer disease or pancreatic juice in pancreas disease). This medicine may cause drowsiness, especially with the first dose. Do not operate machinery or drive until all side effects have resolved. Do not combine with alcohol. Other common side effects include dry mouth and eyes. In older persons, antispasmodics can occasionally cause urinary retention, constipation, or trouble focusing the eyes. Glaucoma may be worsened by this medicine. FOLLOW-UP CARE: Drink plenty of fluids, at least 2 liters of water per day. Eat a whole foods diet with plenty of fruits and vegetables. Limit your intake of processed, fried, salty, spicy, and fast foods. Follow-up with your primary care provider tomorrow as discussed. Return to the Emergency Department if you are unable to follow-up with your primary care provider and you have persistent symptoms or return at any time for any worsening symptoms or concerns. Prescriptions: Dicyclomine HCl [Bentyl 10 mg Capsule] 1 cap PO Q8HP PRN #10 cap PRN Reason: Forms: Elevated Blood Pressure Referrals: MARY BETH NICHOLS DO [Primary Care Provider] - Follow up tomorrow
[2016-11-01 12:29] VITALS: BP 148/101
== END 2016-11-01 12:25 | disposition home or self-care (01) ==
LOC: ER 07:46
DX: D25.9 Leiomyoma of uterus, unspecified (principal); R10.84 Generalized abdominal pain; I10 Essential (primary) hypertension; F17.200 Nicotine dependence, unspecified, uncomplicated; E11.9 Type 2 diabetes mellitus without complications; Z98.51 Tubal ligation status
CPT/HCPCS: 36415; 80053; 81001; 81025; 83690; 85025; 99284

== ENCOUNTER 2016-11-03 11:33 | Emergency (ER) | payer MEDICAID ==
[2016-11-03] MEDS ORDERED: FAMOTIDINE 20 MG TABLET PO ONE (11:38)
[2016-11-03] MEDS ORDERED: DIPHENHYDRAMINE HCL 50 MG CAPSULE PO ONE (11:38)
[2016-11-03] MEDS ORDERED: PREDNISONE 20 MG TABLET PO ONE (11:38)
--- NOTE | 2016-11-03 11:40 | ER Document Report ---
ED Medical Screen (RME) - General Chief Complaint: Lip Swelling Stated Complaint: TOP LIP SWELLING Time seen by provider: 11:38 Mode of Arrival: Ambulatory Information source: Patient Notes: 40-year-old female complaining of swollen upper lip since she woke up this morning without dental decay or abscess. She has been taking lisinopril for one month. Oropharynx without swelling and lungs are clear in triage. TRAVEL OUTSIDE OF THE [place] IN LAST 30 DAYS: No - Related Data Allergies/Adverse Reactions: No Known Allergies Allergy (Verified 11/03/16 11:35) Past Medical History - Social History Chew tobacco use (# tins/day): No Frequency of alcohol use: Occasional Drug Abuse: None - Past Medical History Cardiac Medical History: Reports: Hx Hypertension Denies: Hx Congestive Heart Failure, Hx DVT, Hx Heart Attack, Hx Hypercholesterolemia, Hx Pulmonary Embolism Pulmonary Medical History: Denies: Hx Asthma, Hx COPD, Hx Tuberculosis Neurological Medical History: Denies: Hx Seizures Endocrine Medical History: Denies: Hx Diabetes Mellitus Type 1, Hx Diabetes Mellitus Type 2, Hx Hyperthyroidism, Hx Hypothyroidism Renal/ Medical History: Denies: Hx Peritoneal Dialysis GI Medical History: Denies: Hx Cirrhosis, Hx Gastroesophageal Reflux Disease, Hx Hepatitis Musculoskeltal Medical History: Reports Hx Arthritis - Osteoarthritis Skin Medical History: Denies Hx Eczema, Denies Hx Psoriasis Psychiatric Medical History: Reports: Hx Depression Infectious Medical History: Denies: Hx Hepatitis Past Surgical History: Reports: Hx Section, Hx Orthopedic Surgery - right knee, Hx Tubal Ligation. Denies: Hx Hysterectomy, Hx Pacemaker - Immunizations Hx Diphtheria, Pertussis, Tetanus Vaccination: Yes
--- NOTE | 2016-11-03 12:07 | ER Document Report ---
ED Allergic Reaction - General Chief Complaint: Lip Swelling Stated Complaint: TOP LIP SWELLING Mode of Arrival: Ambulatory Notes: The patient is a 40-year-old female, past medical history hypertension, woke up this morning and noticed that her top lip was swollen. She started lisinopril about 2 months ago. She said the lip swelling has not progressed. While in the emergency room, the patient developed a dull occipital headache, similar to prior headaches, and she is requesting Motrin. She denies any tongue swelling, shortness of breath, wheezing, stridor, difficulty swallowing, throat swelling, nausea, vomiting or rash. TRAVEL OUTSIDE OF THE [place] IN LAST 30 DAYS: No - Related Data Allergies/Adverse Reactions: LIONEL Inhibitors Allergy (Verified 11/03/16 14:27) ARB-Angiotensin Receptor Antagonist Allergy (Verified 11/03/16 14:27) Past Medical History - General Information source: Patient - Social History Smoking Status: Current Every Day Smoker Chew tobacco use (# tins/day): No Frequency of alcohol use: Occasional Drug Abuse: None Family History: Reviewed & Not Pertinent Patient has suicidal ideation: No Patient has homicidal ideation: No - Past Medical History Cardiac Medical History: Reports: Hx Hypertension Denies: Hx Congestive Heart Failure, Hx DVT, Hx Heart Attack, Hx Hypercholesterolemia, Hx Pulmonary Embolism Pulmonary Medical History: Denies: Hx Asthma, Hx COPD, Hx Tuberculosis Neurological Medical History: Denies: Hx Seizures Endocrine Medical History: Denies: Hx Diabetes Mellitus Type 1, Hx Diabetes Mellitus Type 2, Hx Hyperthyroidism, Hx Hypothyroidism Renal/ Medical History: Denies: Hx Peritoneal Dialysis GI Medical History: Denies: Hx Cirrhosis, Hx Gastroesophageal Reflux Disease, Hx Hepatitis Musculoskeltal Medical History: Reports Hx Arthritis - Osteoarthritis Skin Medical History: Denies Hx Eczema, Denies Hx Psoriasis Psychiatric Medical History: Reports: Hx Depression Infectious Medical History: Denies: Hx Hepatitis Past Surgical History: Reports: Hx Section, Hx Orthopedic Surgery - right knee, Hx Tubal Ligation. Denies: Hx Hysterectomy, Hx Pacemaker - Immunizations Hx Diphtheria, Pertussis, Tetanus Vaccination: Yes Review of Systems - Review of Systems Notes: REVIEW OF SYSTEMS: CONSTITUTIONAL: -fevers, -chills EENT: +upper lip swelling, -eye pain, -difficulty swallowing, -nasal congestion CARDIOVASCULAR:-chest pain, -syncope. RESPIRATORY: -cough, -SOB GASTROINTESTINAL: -abdominal pain, -nausea, -vomiting, -diarrhea GENITOURINARY: -dysuria, -hematuria MUSCULOSKELETAL: -back pain, -neck pain SKIN: -rash or skin lesions. HEMATOLOGIC: -easy bruising or bleeding. LYMPHATIC: -swollen, enlarged glands. NEUROLOGICAL: -altered mental status or loss of consciousness, +headache, - neurologic symptoms PSYCHIATRIC: -anxiety, -depression. ALL OTHER SYSTEMS REVIEWED AND NEGATIVE. Physical Exam - Vital signs Vitals: Temp Pulse Resp BP Pulse Ox 97.4 F 103 H 16 138/81 H 98 11/03/16 11:36 11/03/16 11:36 11/03/16 11:36 11/03/16 11:36 11/03/16 11:36 - Notes Notes: PHYSICAL EXAMINATION: GENERAL: Well-appearing, well-nourished and in no acute distress. HEAD: Atraumatic, normocephalic. EYES: Pupils equal round and reactive to light, extraocular movements intact, sclera anicteric, conjunctiva are normal. ENT: upper lip with moderate swelling, nares patent, oropharynx clear without exudates, no swelling in posterior pharynx. Moist mucous membranes. NECK: Normal range of motion, supple without lymphadenopathy LUNGS: Breath sounds clear to auscultation bilaterally and equal. No wheezes rales or rhonchi. HEART: Regular rate and rhythm without murmurs ABDOMEN: Soft, nontender, normoactive bowel sounds. No guarding, no rebound. No masses appreciated. EXTREMITIES: Normal range of motion, no pitting or edema. No cyanosis. NEUROLOGICAL: Cranial nerves grossly intact. Normal speech, normal gait. Normal sensory, motor, and reflex exams. PSYCH: Normal mood, normal affect. SKIN: Warm, Dry, normal turgor, no rashes or lesions noted. Course - Re-evaluation Re-evalutation: 11/03/16 12:23 Patient with isolated upper lip swelling for the past 4 hours. No progression to airway involvement at this time. Steroids and histamine blockers given prior to my evaluation. Headache is similar in quality to prior headaches and is not concerning for us 8H, meningitis or ICH at this time. Will continue to monitor her airway while in emergency room. Told her to never take lisinopril or ARBs again. 11/03/16 Patient monitored in the ER for several hours. She did not have progression of her upper lip swelling. Still had no tongue swelling, posterior pharynx swelling, wheezing or rash. Offered patient admission for observation of her lip swelling, but she said she would like to go home. Given strict return precautions and she understands. - Vital Signs Vital signs: Temp Pulse Resp BP Pulse Ox 97.4 F 103 H 12 101/63 100 11/03/16 11:36 11/03/16 11:36 11/03/16 14:01 11/03/16 14:00 11/03/16 14:01 Discharge - Discharge Clinical Impression: LIONEL inhibitor-aggravated angioedema Qualifiers: Encounter type: initial encounter Injury intent: accidental or unintentional Qualified Code(s): T46.4X1A - Poisoning by daqbjcqziqe-stptcoctny-tepfld inhibitors, accidental (unintentional), initial encounter Condition: Stable Disposition: HOME, SELF-CARE Additional Instructions: Never take any medications that end in -opril or -sartan (LIONEL inhibitors or Angiotension Receptor Blockers). If you have worsening swelling, are unable to swallow or any difficulty breathing, return immediately to the emergency room. Talk to your primary care physician about starting a new blood pressure medication. ACUTE ALLERGIC REACTION: Your symptoms are due to an allergic reaction. Allergy can cause hives, swelling of the hands, feet, and face, hoarseness, and difficulty swallowing or breathing. It may be due to exposure to medication, animal dander, foods, infection, or insect bites. Medication is a common cause, even when prior use of this same medication caused no problems. Acute treatment may include adrenalin and antihistamines. Usually, the specific allergic agent can't be identified unless repeated episodes occur. Home treatment includes the following: (1) Stop any suspicious medications. This will be discussed with you. (2) Oral antihistamines for the next four to five days. Example, diphenhydramine (Benadryl) every four hours. (3) You may also use cimetidine (Tagamet), ranitidine (Zantac), or famotidine ( Pepcid) every four hours if diphenhydramine is not controlling itching and hives. (4) Avoid aspirin until the hives completely disappear. (5) Avoid hot baths or showers until the hives are completely gone. Call the doctor if faintness, difficulty swallowing, tightness in the chest , or wheezing occurs. STEROID MEDICATION: You have been given a medicine of the cortisone/steroid class. This medication is used to control inflammation or allergy. It is usually only given for a short period of time, until the acute process subsides. There are usually no side effects from short-term use of cortisone-like medications. Some persons feel an increased sense of well-being and are not sleepy at bedtime. Long-term use of cortisone medications is best avoided, unless required for a severe condition. If your condition does not remit, or relapses after the course of corticosteroid medication, you should consult your physician. ACID-SUPPRESSING MEDICATION: You have a prescription for medicine which reduces the stomach's secretion of acid. Examples include Zantac, Tagament, and Pepcid. These drugs are often used to allow healing of ulcers or esophagitis. They may be needed to prevent recurrence of ulcers in some patients, or to prevent damage from acid reflux in the esophagus. Take all medication as prescribed, even after the pain is gone. Regular antacids may be added as needed if you have symptoms while taking this medicine. These medications sometimes are prescribed for allergic reactions because they have anti-histaminic effects and relieve the rash and itching of the reaction. There are usually no side effects from this medication. But, in rare cases and particularly in the elderly, serious problems can occur. Contact your doctor if there is fever, rash, hallucinations, confusion, or unusual bruising. Contact your doctor at once if you develop lightheadedness, black or bloody stool, or bloody vomitus. ANTIHISTAMINES: An antihistamine has been given and/or prescribed to control your symptoms. Antihistamines are used for many reasons, including itching, watering eyes, runny nose, allergic swelling, hives, and insect stings. Antihistamines may cause drowsiness, especially with the first dose. Do not operate machinery or drive while under the effects of the medication. Other common side effects include dry mouth and eyes. In older persons, antihistamines can occasionally cause urinary retention, constipation, and trouble focusing the eyes. Do not combine the medication with alcohol, or with any other medication without talking to your doctor. USE OF DIPHENHYDRAMINE: The use of diphenhydramine (Benadryl) has been recommended to control allergic symptoms. The 25 mg strength is available over- the-counter, as well as the elixir. This antihistamine is used for many symptoms. It's useful for itching, watering eyes and nose, allergic swelling, hives, and insect stings. The medication can be repeated four times daily. Age Elixir (12.5 mg/tsp) 25 mg pill 2-3 yr 1/2 tsp 4-8 yr 1 tsp 9-14 yr 2 tsp one tab adult 1-2 tabs Antihistamines may cause drowsiness, especially with the first dose. Do not operate machinery or drive while under the effects of the medication. Do not combine the medication with alcohol, or with any other medication without talking to your doctor. FOLLOW-UP CARE: If you have been referred to a physician for follow-up care, call the physician s office for an appointment as you were instructed or within the next two days. If you experience worsening or a significant change in your symptoms, notify the physician immediately or return to the Emergency Department at any time for re-evaluation. Referrals: SHILO NICHOLS MD [Primary Care Provider] - Follow up as needed
[2016-11-03] MEDS ORDERED: IBUPROFEN 600 MG TABLET PO ONE (12:17)
[2016-11-03 14:15] VITALS: BP 101/63
== END 2016-11-03 14:30 | disposition home or self-care (01) ==
LOC: ER 11:33
DX: T46.4X1A Poisoning by angiotensin-converting-enzyme inhibitors, accidental (unintentional), initial encounter (principal); R22.0 Localized swelling, mass and lump, head; I10 Essential (primary) hypertension; F17.200 Nicotine dependence, unspecified, uncomplicated; Z98.51 Tubal ligation status
CPT/HCPCS: 99283; J3490 ×3; J7512

== ENCOUNTER → 2016-11-15 | Outpatient (CLI) | payer MEDICAID | LOC: WI 11:24 | PROVIDERS: ATTEND Family Medicine | DX: Z12.31 Encounter for screening mammogram for malignant neoplasm of breast (principal) | CPT/HCPCS: 77067; G0202 ==

== ENCOUNTER 2017-12-31 16:32 | Inpatient (IN) | payer OTHER ==
[2017-12-31] MEDS ORDERED: DIPHENHYDRAMINE HCL 50 MG/ML VIAL IV ONE (17:07)
[2017-12-31] MEDS ORDERED: METOCLOPRAMIDE HCL INJ/PF 10 MG/2 ML SDV IV ONE (17:07)
[2017-12-31] MEDS ORDERED: NORMAL SALINE 1000 ML 1,000 ML IV ONE (17:07)
--- NOTE | 2017-12-31 17:10 | ER Document Report ---
ED Medical Screen (RME) - General Chief Complaint: Blood Pressure Problem Stated Complaint: POSSIBLE HIGH BP Time Seen by Provider: 12/31/17 17:01 Notes: The patient is a 42-year-old female, past medical history hypertension, chronic headaches, presents with her usual diffuse headache for the past week. She has had this multiple times in the past and will usually resolve with Tylenol. Patient is on chlorthalidone and metoprolol for her high blood pressure and took her morning dose today. She denies focal weakness, numbness, tingling, sudden onset of headache, fevers, neck stiffness, ataxia, nausea or vomiting. PE: No acute distress. 5/5 strength in all 4 extremities. CN II-XII intact. Sensation intact. I have greeted and performed a rapid initial assessment of this patient. A comprehensive ED assessment and evaluation of the patient, analysis of test results and completion of the medical decision making process will be conducted by additional ED providers. TRAVEL OUTSIDE OF THE [place] IN LAST 30 DAYS: No - Related Data Allergies/Adverse Reactions: LIONEL Inhibitors Allergy (Verified 12/31/17 16:32) ARB-Angiotensin Receptor Antagonist Allergy (Verified 12/31/17 16:32) Home Medications: percocet, metoprolol, chlorthalidone Past Medical History - Social History Chew tobacco use (# tins/day): No Frequency of alcohol use: Occasional Drug Abuse: None - Past Medical History Cardiac Medical History: Reports: Hx Hypertension Denies: Hx Congestive Heart Failure, Hx DVT, Hx Heart Attack, Hx Hypercholesterolemia, Hx Pulmonary Embolism Pulmonary Medical History: Denies: Hx Asthma, Hx COPD, Hx Tuberculosis Neurological Medical History: Denies: Hx Seizures Endocrine Medical History: Denies: Hx Diabetes Mellitus Type 1, Hx Diabetes Mellitus Type 2, Hx Hyperthyroidism, Hx Hypothyroidism Renal/ Medical History: Denies: Hx Peritoneal Dialysis GI Medical History: Denies: Hx Cirrhosis, Hx Gastroesophageal Reflux Disease, Hx Hepatitis Musculoskeltal Medical History: Reports Hx Arthritis - Osteoarthritis Skin Medical History: Denies Hx Eczema, Denies Hx Psoriasis Psychiatric Medical History: Reports: Hx Depression Infectious Medical History: Denies: Hx Hepatitis Past Surgical History: Reports: Hx Section, Hx Orthopedic Surgery - right knee, Hx Tubal Ligation. Denies: Hx Hysterectomy, Hx Pacemaker - Immunizations Hx Diphtheria, Pertussis, Tetanus Vaccination: Yes Physical Exam - Vital signs Vitals: Temp Pulse Resp BP Pulse Ox 98.5 F 100 18 224/131 H 98 12/31/17 16:37 12/31/17 16:37 12/31/17 16:37 12/31/17 16:37 12/31/17 16:37 Course - Vital Signs Vital signs: Temp Pulse Resp BP Pulse Ox 98.5 F 100 18 224/131 H 98 12/31/17 16:37 12/31/17 16:37 12/31/17 16:37 12/31/17 16:37 12/31/17 16:37
--- NOTE | 2017-12-31 18:22 | RADIOLOGY REPORT (SQ) ---
EXAM DESCRIPTION: CT HEAD WITHOUT COMPLETED DATE/TIME: 12/31/2017 6:12 pm REASON FOR STUDY: diffuse headache, BP 240/130 COMPARISON: 10/12/2016 TECHNIQUE: Axial images acquired through the brain without intravenous contrast. Images reviewed wi th bone, brain and subdural windows. Additional sagittal and coronal reconstructions were generated. Images stored on PACS. All CT scanners at this facility use dose modulation, iterative reconstruction, and/or weight based d osing when appropriate to reduce radiation dose to as low as reasonably achievable (ALARA). [facility]: Dose Right [facility]: CareDose [facility]: Dose Right [facility]: Teradose 4D [facility]: [employer] RADIATION DOSE: CT Rad equipment meets quality standard of care and radiation dose reduction techniq ues were employed. CTDIvol: 53.2 mGy. DLP: 1017 mGy-cm. mGy. LIMITATIONS: None. FINDINGS: VENTRICLES: Normal size and contour. CEREBRUM: No masses. No hemorrhage. No midline shift. No evidence for acute infarction. Few scatte red areas of low density in the white matter most likely chronic small vessel ischemic changes. CEREBELLUM: No masses. No hemorrhage. No alteration of density. No evidence for acute infarction. EXTRAAXIAL SPACES: No fluid collections. No masses. ORBITS AND GLOBE: No intra- or extraconal masses. Normal contour of globe without masses. CALVARIUM: No fracture. PARANASAL SINUSES: Mucous retention cysts are seen in both maxillary sinuses, right more than left. SOFT TISSUES: No mass or hematoma. OTHER: No other significant finding. IMPRESSION: Maxillary sinus disease. Mild microvascular ischemic changes with no acute imaging find ings in the brain. EVIDENCE OF ACUTE STROKE: NO. COMMENT: Quality ID # [id number]: Final reports with documentation of one or more dose reduction techniques (e.g., Automated exposure control, adjustment of the mA and/or kV according to patient size, use of iterative reconstruction technique) TECHNICAL DOCUMENTATION: JOB ID: [id number] [employer]- All Rights Reserved Reading location - IP/workstation name: [email or web address]
--- NOTE | 2017-12-31 18:57 | ER Document Report ---
ED General - General Chief Complaint: Blood Pressure Problem Stated Complaint: POSSIBLE HIGH BP Time Seen by Provider: 12/31/17 17:01 Notes: Patient states over the last several days she has been having significant headache. Blood pressures been going up as well. Has been taking her blood pressure medications. Pain is located on the face for head and neck. Nothing seems to make it better or worse. No fever. History of headaches when her blood pressure gets high. TRAVEL OUTSIDE OF THE [place] IN LAST 30 DAYS: No - HPI Onset: Yesterday Onset/Duration: Gradual, Constant Quality of pain: Throbbing Severity: Moderate Pain Level: 4 Associated symptoms: None - Related Data Allergies/Adverse Reactions: LIONEL Inhibitors Allergy (Verified 12/31/17 16:32) ARB-Angiotensin Receptor Antagonist Allergy (Verified 12/31/17 16:32) Home Medications: percocet, metoprolol, chlorthalidone Past Medical History - General Information source: Patient - Social History Smoking Status: Current Some Day Smoker Chew tobacco use (# tins/day): No Frequency of alcohol use: Occasional Drug Abuse: None Lives with: Family Family History: Reviewed & Not Pertinent Patient has suicidal ideation: No Patient has homicidal ideation: No - Past Medical History Cardiac Medical History: Reports: Hx Hypertension Denies: Hx Congestive Heart Failure, Hx DVT, Hx Heart Attack, Hx Hypercholesterolemia, Hx Pulmonary Embolism Pulmonary Medical History: Denies: Hx Asthma, Hx COPD, Hx Tuberculosis Neurological Medical History: Denies: Hx Seizures Endocrine Medical History: Denies: Hx Diabetes Mellitus Type 1, Hx Diabetes Mellitus Type 2, Hx Hyperthyroidism, Hx Hypothyroidism Renal/ Medical History: Denies: Hx Peritoneal Dialysis GI Medical History: Denies: Hx Cirrhosis, Hx Gastroesophageal Reflux Disease, Hx Hepatitis Musculoskeltal Medical History: Reports Hx Arthritis - Osteoarthritis Skin Medical History: Denies Hx Eczema, Denies Hx Psoriasis Psychiatric Medical History: Reports: Hx Depression Infectious Medical History: Denies: Hx Hepatitis Past Surgical History: Reports: Hx Section, Hx Orthopedic Surgery - right knee, Hx Tubal Ligation. Denies: Hx Hysterectomy, Hx Pacemaker - Immunizations Hx Diphtheria, Pertussis, Tetanus Vaccination: Yes Review of Systems - Review of Systems Constitutional: No symptoms reported EENT: No symptoms reported Cardiovascular: No symptoms reported Respiratory: No symptoms reported Gastrointestinal: No symptoms reported Genitourinary: No symptoms reported Female Genitourinary: No symptoms reported Musculoskeletal: No symptoms reported Skin: No symptoms reported Hematologic/Lymphatic: No symptoms reported Neurological/Psychological: Headaches. denies: Paralysis, Seizure, Lost consciousness Physical Exam - Vital signs Vitals: Temp Pulse Resp BP Pulse Ox 98.5 F 100 18 224/131 H 98 12/31/17 16:37 12/31/17 16:37 12/31/17 16:37 12/31/17 16:37 12/31/17 16:37 Interpretation: Normal - General General appearance: Appears well, Alert - HEENT Head: Normocephalic, Atraumatic Eyes: Normal Pupils: PERRL - Respiratory Respiratory status: No respiratory distress Chest status: Nontender Breath sounds: Normal Chest palpation: Normal - Cardiovascular Rhythm: Regular Heart sounds: Normal auscultation Murmur: No - Abdominal Inspection: Normal Distension: No distension Bowel sounds: Normal Tenderness: Nontender Organomegaly: No organomegaly - Back Back: Normal, Nontender - Extremities General upper extremity: Normal inspection, Nontender, Normal color, Normal ROM , Normal temperature General lower extremity: Normal inspection, Nontender, Normal color, Normal ROM , Normal temperature, Normal weight bearing. No: Nathanael's sign - Neurological Neuro grossly intact: Yes Cognition: Normal Orientation: AAOx4 Aniya Coma Scale Eye Opening: Spontaneous [place] Coma Scale Verbal: Oriented Aniya Coma Scale Motor: Obeys Commands Aniya Coma Scale Total: 15 Speech: Normal Motor strength normal: LUE, RUE, LLE, RLE Sensory: Normal - Psychological Associated symptoms: Normal affect, Normal mood - Skin Skin Temperature: Warm Skin Moisture: Dry Skin Color: Normal Course - Re-evaluation Re-evalutation: 12/31/17 20:07 CT scan shows that she does have some sinus disease. Blood pressure is significantly elevated with blood pressure of 215/140. Will start on blood pressure medications at this time. Headache is still present after Reglan, Benadryl and fluids. Likely this represents hypertensive emergency. Will consult with hospitalist for possible admit as do not want overcorrect his blood pressure too quickly in the setting of her headache. 12/31/17 21:[address] on nicardipine drip as there is no labetalol available and I do not feel comfortable giving her anything else. Will place in the IMCU. Hospitalist has seen and agrees to admit. - Vital Signs Vital signs: Temp Pulse Resp BP Pulse Ox 98.5 F 100 17 217/127 H 97 12/31/17 16:37 12/31/17 16:37 12/31/17 19:28 12/31/17 19:28 12/31/17 19:28 - Laboratory Result Diagrams: 12/31/17 18:15 12/31/17 18:15 Laboratory results interpreted by me: 12/31/17 12/31/17 12/31/17 18:15 18:15 18:15 Hgb 11.3 L Hct 35.9 L MCV 77 L MCH 24.4 L MCHC 31.5 L RDW 20.4 H Plt Count 565 H AST 44 H Urine Blood LARGE H Critical Care Note - Critical Care Note Total time excluding time spent on procedures (mins): 45 Comments: Hypertensive emergency Discharge - Discharge Clinical Impression: Hypertensive emergency Headache Qualifiers: Headache type: unspecified Headache chronicity pattern: acute headache Intractability: intractable Qualified Code(s): R51 - Headache Condition: Poor Disposition: ADMITTED INPATIENT Admitting Provider: Hospitalist - [facility] Admitted: IMCU Referrals: SHILO NICHOLS MD [Primary Care Provider] - Follow up as needed
[2017-12-31] MEDS ORDERED: ASPIRIN 81 MG TABLET, CHEWABLE PO ONE (18:59)
[2017-12-31 19:05] LABS: ABSOLUTE BASOPHILS # (AUTO) 0.1 10^3/uL (0.0-0.2); ABSOLUTE EOSINOPHILS # (AUTO) 0.2 10^3/uL (0.0-0.6); ABSOLUTE LYMPHOCYTES (AUTO) 2.4 10^3/uL (0.5-4.7); ABSOLUTE MONOCYTES (AUTO) 0.5 10^3/uL (0.1-1.4); ABSOLUTE NEUT (AUTO) 4.5 10^3/uL (1.7-8.2); EOSINOPHILS % (AUTO) 2.3 % (0-6); HEMATOCRIT 35.9 % (36.0-47.0); HEMOGLOBIN 11.3 g/dL (12.0-15.5); LYMPHOCYTES % (AUTO) 31.4 % (13-45); MEAN CORPUSCULAR HEMOGLOBIN 24.4 pg (27.0-33.4); MEAN CORPUSCULAR HGB CONC 31.5 g/dL (32.0-36.0); MEAN CORPUSCULAR VOLUME 77 fl (80-97); MONOCYTES % (AUTO) 6.7 % (3-13); PLATELET COUNT 565 10^3/uL (150-450); RED BLOOD COUNT 4.64 10^6/uL (3.72-5.28); RED CELL DISTRIBUTION WIDTH 20.4 % (11.5-14.0); SEGMENTED NEUTROPHILS % (AUTO) 58.6 % (42-78); TOTAL CELLS COUNTED % (AUTO) 100 %; WHITE BLOOD COUNT 7.7 10^3/uL (4.0-10.5)
[2017-12-31 19:15] LABS: ALANINE AMINOTRANSFERASE 22 U/L (9-52); ALBUMIN 4.3 g/dL (3.5-5.0); ALKALINE PHOSPHATASE 71 U/L (38-126); ANION GAP 11 (5-19); ASPARTATE AMINO TRANSFERASE 44 U/L (14-36); BILIRUBIN,DIRECT 0.3 mg/dL (0.0-0.4); BILIRUBIN,TOTAL 0.3 mg/dL (0.2-1.3); BLOOD UREA NITROGEN 15 mg/dL (7-20); CALCIUM 9.5 mg/dL (8.4-10.2); CARBON DIOXIDE 26 mmol/L (22-30); CHLORIDE 106 mmol/L (98-107); GLUCOSE 94 mg/dL (75-110); POTASSIUM 4.4 mmol/L (3.6-5.0); SODIUM 143.1 mmol/L (137-145); TOTAL PROTEIN 7.9 g/dL (6.3-8.2)
[2017-12-31 19:19] LABS: APPEARANCE,URINE CLEAR; BILIRUBIN,URINE NEGATIVE (NEGATIVE); COLOR,URINE YELLOW; GLUCOSE, URINE NEGATIVE (NEGATIVE); KETONES,URINE NEGATIVE (NEGATIVE); LEUKOCYTE ESTERASE,URINE NEGATIVE (NEGATIVE); NITRITE,URINE NEGATIVE (NEGATIVE); PROTEIN,URINE NEGATIVE (NEGATIVE); URINE SPECIFIC GRAVITY 1.006; UROBILINOGEN,URINE NEGATIVE mg/dL (<2.0)
--- NOTE | 2017-12-31 19:32 | RADIOLOGY REPORT (SQ) ---
EXAM DESCRIPTION: CHEST SINGLE VIEW COMPLETED DATE/TIME: 12/31/2017 7:12 pm REASON FOR STUDY: sob COMPARISON: 10/12/2016 EXAM PARAMETERS: NUMBER OF VIEWS: One view. TECHNIQUE: Single frontal radiographic view of the chest acquired. RADIATION DOSE: NA LIMITATIONS: None. FINDINGS: LUNGS AND PLEURA: No opacities, masses or pneumothorax. No pleural effusion. MEDIASTINUM AND HILAR STRUCTURES: No masses. Contour normal. HEART AND VASCULAR STRUCTURES: Heart normal in size. Normal vasculature. BONES: No acute findings. HARDWARE: None in the chest. OTHER: No other significant finding. IMPRESSION: NO ACUTE RADIOGRAPHIC FINDING IN THE CHEST. TECHNICAL DOCUMENTATION: JOB ID: [id number] [employer]- All Rights Reserved Reading location - IP/workstation name: [email or web address]
[2017-12-31] MEDS ORDERED: KETOROLAC TROMETHAMINE INJ/PF 30 MG/1 ML SDV IV ONE (19:49)
[2017-12-31] MEDS ORDERED: METOPROLOL TARTRATE 50 MG TABLET PO ONE (19:56)
[2017-12-31] MEDS ORDERED: FUROSEMIDE 20 MG TABLET PO ONE (19:56)
[2017-12-31] MEDS ORDERED: MORPHINE SULFATE 10 MG/ML INJ IV ONE (20:37)
[2017-12-31] MEDS ORDERED: LABETALOL HCL INJ 20 MG/4 ML DISP.SYRIN IV ONE ×2 (20:48→21:03)
[2017-12-31] MEDS ORDERED: NICARDIPINE HCL RTU, ISO-OS 20 MG/200 ML RTUINJ IV PRN (21:28)
[2017-12-31] MEDS ORDERED: GLUCAGON,HUMAN RECOMB 1 MG INJ SUBCUT PRN (21:39)
[2017-12-31] MEDS ORDERED: DEXTROSE 40% GEL 15 GM TUBE PO PRN ×2 (21:39)
[2017-12-31] MEDS ORDERED: DEXTROSE 50%-WATER 25 GM/50 ML DISP.SYRIN IV PRN ×2 (21:39)
[2017-12-31] MEDS ORDERED: METOPROLOL TARTRATE PF/INJ 5 MG/5 ML SDV IV PRN (21:43)
[2017-12-31] MEDS: HYDRALAZINE HCL 50 MG TABLET PO SCH (22:26)
--- NOTE | 2017-12-31 22:34 | EKG REPORT ---
SEVERITY:- ABNORMAL ECG - SINUS RHYTHM NONSPECIFIC T ABNORMALITIES, INFERIOR LEADS LVH : Confirmed by: Marcelina Parra 31-Dec-2017 22:34:10
--- NOTE | 2017-12-31 23:16 | PDOC H&P ---
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 Patient is a known case of hypertension but she stopped taking her medications after she was told her blood pressure was controlled. He patient is found to have markedly elevated blood pressure in the range of 224/131 and 117/127. Patient was given IV labetalol twice but her blood pressure does not budge. Later patient has been started on Cardene drip. Her CT scan is negative for acute intracranial process. She denies blurry vision or any seizure activity. No fever, chills, nausea, cough, vomiting, palpitation or diaphoresis. No urinary complaints. Past Medical History Cardiac Medical History: Reports: Hypertension Denies: Congestive Heart Failure, DVT, Myocardial Infarction, Hyperlipidema, Pulmonary Embolism Pulmonary Medical History: Denies: Asthma, Chronic Obstructive Pulmonary Disease (COPD), Tuberculosis Neurological Medical History: Denies: Seizures Endocrine Medical History: Denies: Diabetes Mellitus Type 1, Diabetes Mellitus Type 2, Hyperthyroidism, Hypothyroidism GI Medical History: Denies: Cirrhosis, Gastroesophageal Reflux Disease, Hepatitis Musculoskeltal Medical History: Reports: Arthritis - Osteoarthritis Skin Medical History: Denies: Eczema, Psoriasis Psychiatric Medical History: Reports: Depression Past Surgical History Past Surgical History: Reports: Section, Orthopedic Surgery - right knee, Tubal Ligation Denies: Hysterectomy, Pacemaker Social History Lives with: Family Smoking Status: Current Some Day Smoker Frequency of Alcohol Use: Occasional Hx Recreational Drug Use: No Drugs: None Hx Prescription Drug Abuse: No Family History Family History: Reviewed & Not Pertinent Parental Family History Reviewed: Yes Children Family History Reviewed: Yes Sibling(s) Family History Reviewed.: Yes Medication/Allergy Home Medications: Lisinopril/Hydrochlorothiazide [Zestoretic 20-25 mg Tablet] 1 tab PO DAILY 10/12 Sertraline HCl [Zoloft] 25 mg PO DAILY 10/12/16 Amlodipine Besylate [Norvasc 5 mg Tablet] 5 mg PO DAILY #30 tablet 10/17/16 Aspirin [Ecotrin 325 mg EC Tablet] 325 mg PO DAILY tabec 10/17/16 Doxycycline Hyclate [Vibramycin 100 mg Tablet] 100 mg PO Q12 #10 tablet Ferrous Sulfate [Feosol 325 mg Tablet] 325 mg PO DAILY tablet 10/17/16 Hydralazine HCl [Apresoline 25 mg Tablet] 25 mg PO Q12 #60 tablet 10/17/16 Metoprolol Succinate [Toprol Xl 50 mg Tab.sr] 100 mg PO Q12 #60 tab.sr.24h 10/17 Oxycodone HCl/Acetaminophen [Percocet 5-325 mg Tablet] 1 tab PO Q12H PRN #20 tablet 10/17/16 Prednisone [Deltasone 20 mg Tablet] 10 mg PO DAILY #21 tablet 10/17/16 Dicyclomine HCl [Bentyl 10 mg Capsule] 1 cap PO Q8HP PRN #10 cap 11/01/16 Allergies/Adverse Reactions: LIONEL Inhibitors Allergy (Verified 12/31/17 16:32) ARB-Angiotensin Receptor Antagonist Allergy (Verified 12/31/17 16:32) Review of Systems Constitutional: PRESENT: as per HPI Ears: PRESENT: as per HPI Cardiovascular: PRESENT: as per HPI Respiratory: PRESENT: as per HPI Gastrointestinal: PRESENT: as per HPI Neurological: PRESENT: as per HPI Psychiatric: PRESENT: as per HPI Physical Exam Vital Signs: Temp Pulse Resp BP Pulse Ox 98.5 F 100 18 232/147 H 100 12/31/17 16:37 12/31/17 16:37 12/31/17 22:16 12/31/17 22:16 12/31/17 21:31 General appearance: PRESENT: no acute distress Head exam: PRESENT: atraumatic, normocephalic Respiratory exam: PRESENT: clear to auscultation vitor. ABSENT: rales, rhonchi, wheezes Cardiovascular exam: PRESENT: RRR. ABSENT: diastolic murmur, rubs, systolic murmur GI/Abdominal exam: PRESENT: other - Obese abdomen Neurological exam: PRESENT: alert, awake, oriented to time, oriented to situation Results Impressions: Head CT 12/31/17 17:07 IMPRESSION: Maxillary sinus disease. Mild microvascular ischemic changes with no acute imaging findings in the brain. EVIDENCE OF ACUTE STROKE: NO. Chest X-Ray 12/31/17 18:59 IMPRESSION: NO ACUTE RADIOGRAPHIC FINDING IN THE CHEST. Assessment & Plan - Diagnosis (1) Headache Qualifiers: Headache type: unspecified Headache chronicity pattern: acute headache Intractability: intractable Qualified Code(s): R51 - Headache Is this a current diagnosis for this admission?: Yes Plan: Most probably related to her hypertensive emergency. (2) Hypertensive emergency Is this a current diagnosis for this admission?: Yes Plan: Patient has been on Cardene drip. We will switch her to p.o. antihypertensive medications when her blood pressure is controlled. - Time Time Spent: 30 to 50 Minutes - Inpatient Certification Medical Necessity: Need Close Monitoring Due to Risk of Patient Decompensation
[2018-01-01] MEDS: NICARDIPINE HCL RTU, ISO-OS 20 MG/200 ML RTUINJ IV PRN ×5 (01:18→11:56)
[2018-01-01] MEDS ORDERED: OXYCODONE-ACETAMINOPHEN 5-325 MG TABLET PO PRN (02:58)
[2018-01-01] MEDS: OXYCODONE-ACETAMINOPHEN 5-325 MG TABLET PO PRN ×2 (03:14→09:36)
[2018-01-01 04:52] LABS: ALANINE AMINOTRANSFERASE 22 U/L (9-52); ALBUMIN 3.7 g/dL (3.5-5.0); ALKALINE PHOSPHATASE 57 U/L (38-126); ANION GAP 11 (5-19); ASPARTATE AMINO TRANSFERASE 14 U/L (14-36); BILIRUBIN,DIRECT 0.2 mg/dL (0.0-0.4); BILIRUBIN,TOTAL 0.2 mg/dL (0.2-1.3); BLOOD UREA NITROGEN 14 mg/dL (7-20); CALCIUM 9.6 mg/dL (8.4-10.2); CARBON DIOXIDE 26 mmol/L (22-30); CHLORIDE 107 mmol/L (98-107); GLUCOSE 108 mg/dL (75-110); POTASSIUM 4.5 mmol/L (3.6-5.0); SODIUM 143.7 mmol/L (137-145); TOTAL PROTEIN 6.5 g/dL (6.3-8.2)
[2018-01-01 05:09] LABS: ABSOLUTE BASOPHILS # (AUTO) 0.1 10^3/uL (0.0-0.2); ABSOLUTE EOSINOPHILS # (AUTO) 0.2 10^3/uL (0.0-0.6); ABSOLUTE LYMPHOCYTES (AUTO) 2.2 10^3/uL (0.5-4.7); ABSOLUTE MONOCYTES (AUTO) 0.6 10^3/uL (0.1-1.4); ABSOLUTE NEUT (AUTO) 4.3 10^3/uL (1.7-8.2); BASOPHILS % (AUTO) 0.9 % (0-2); EOSINOPHILS % (AUTO) 2.7 % (0-6); HEMATOCRIT 32.6 % (36.0-47.0); HEMOGLOBIN 10.2 g/dL (12.0-15.5); MEAN CORPUSCULAR HEMOGLOBIN 24.3 pg (27.0-33.4); MEAN CORPUSCULAR HGB CONC 31.4 g/dL (32.0-36.0); MEAN CORPUSCULAR VOLUME 77 fl (80-97); MONOCYTES % (AUTO) 7.9 % (3-13); PLATELET COUNT 541 10^3/uL (150-450); RED BLOOD COUNT 4.22 10^6/uL (3.72-5.28); RED CELL DISTRIBUTION WIDTH 20.3 % (11.5-14.0); SEGMENTED NEUTROPHILS % (AUTO) 58.5 % (42-78); TOTAL CELLS COUNTED % (AUTO) 100 %; WHITE BLOOD COUNT 7.3 10^3/uL (4.0-10.5)
[2018-01-01] MEDS: HYDRALAZINE HCL 50 MG TABLET PO SCH ×3 (05:29→21:19)
[2018-01-01] MEDS: ENOXAPARIN SODIUM INJ 40 MG/0.4 ML DISP.SYRIN SUBCUT SCH (09:38)
[2018-01-01] MEDS ORDERED: NICARDIPINE HCL RTU, ISO-OS 20 MG/200 ML RTUINJ IV PRN (10:25)
[2018-01-01] MEDS ORDERED: CARVEDILOL 12.5 MG TABLET PO ONE (11:00)
[2018-01-01] MEDS ORDERED: METOPROLOL TARTRATE PF/INJ 5 MG/5 ML SDV IV ONE (11:00)
[2018-01-01] MEDS ORDERED: HYDRALAZINE HCL 50 MG TABLET PO ONE (11:00)
[2018-01-01] MEDS: ACETAMINOPHEN 325 MG TABLET PO PRN (12:32)
[2018-01-01] MEDS: MORPHINE SULFATE 10 MG/ML INJ IV PRN ×3 (13:13→23:51)
--- NOTE | 2018-01-01 14:17 | PDOC PROGRESS REPORT ---
Subjective Progress Note for:: 01/01/18 Subjective:: AMRIO ALBERTO SERRANO is a 42 y.o. female who presented to the emergency department with a chief complaint of headache and dizziness for 2 days. The patient's blood pressure upon presentation was 224/131. She was treated with IV labetalol and Cardene gtt. head CT negative for acute intracranial process. Patient was seen this morning on rounds, she is resting comfortably in bed on room air. She complains of a persistent headache. She denies blurry vision, neck pain, nausea, vomiting or chest pain. The patient remains on a Cardene gtt , plan to initiate oral antihypertensives today and wean from Cardene gtt. Cardiology has been consulted. Reason For Visit: HYPERTENSIVE EMERGENCY Physical Exam Vital Signs: Temp Pulse Resp BP Pulse Ox 98.2 F 89 16 134/87 H 100 01/01/18 12:00 01/01/18 12:00 01/01/18 12:00 01/01/18 12:00 01/01/18 12:00 Intake & Output 12/31/17 01/01/18 01/02/18 06:59 06:59 06:59 Intake Total 500 Balance 500 Weight 133.2 kg General appearance: PRESENT: no acute distress Head exam: PRESENT: atraumatic Eye exam: PRESENT: conjunctiva pink, EOMI, PERRLA Mouth exam: PRESENT: moist Neck exam: PRESENT: full ROM Respiratory exam: PRESENT: clear to auscultation vitor, symmetrical, unlabored Cardiovascular exam: PRESENT: +S1, +S2, tachycardia Pulses: PRESENT: normal radial pulses, normal dorsalis pedis pul Vascular exam: PRESENT: normal capillary refill GI/Abdominal exam: PRESENT: normal bowel sounds, soft. ABSENT: tenderness Rectal exam: PRESENT: deferred Extremities exam: PRESENT: full ROM. ABSENT: calf tenderness, pedal edema Musculoskeletal exam: PRESENT: ambulatory, full ROM Neurological exam: PRESENT: alert, awake, oriented to person, oriented to place , oriented to time, oriented to situation Psychiatric exam: PRESENT: appropriate affect. ABSENT: anxious Skin exam: PRESENT: dry, intact, normal color, warm Results Laboratory Results: 01/01/18 04:35 01/01/18 04:35 01/01/18 01/01/18 04:35 04:35 WBC 7.3 RBC 4.22 Hgb 10.2 L Hct 32.6 L MCV 77 L MCH 24.3 L MCHC 31.4 L RDW 20.3 H Plt Count 541 H Seg Neutrophils % 58.5 Lymphocytes % 30.0 Monocytes % 7.9 Eosinophils % 2.7 Basophils % 0.9 Absolute Neutrophils 4.3 Absolute Lymphocytes 2.2 Absolute Monocytes 0.6 Absolute Eosinophils 0.2 Absolute Basophils 0.1 Sodium 143.7 Potassium 4.5 Chloride 107 Carbon Dioxide 26 Anion Gap 11 BUN 14 Creatinine 0.85 Est GFR ( Amer) > 60 Est GFR (Non-Af Amer) > 60 Glucose 108 Calcium 9.6 Total Bilirubin 0.2 AST 14 ALT 22 Alkaline Phosphatase 57 Total Protein 6.5 Albumin 3.7 Impressions: Head CT 12/31/17 17:07 IMPRESSION: Maxillary sinus disease. Mild microvascular ischemic changes with no acute imaging findings in the brain. EVIDENCE OF ACUTE STROKE: NO. Chest X-Ray 12/31/17 18:59 IMPRESSION: NO ACUTE RADIOGRAPHIC FINDING IN THE CHEST. Status: Imported from PACS Assessment & Plan - Diagnosis (1) Hypertensive emergency Is this a current diagnosis for this admission?: Yes Plan: The patient presents with complaints of headache and dizziness and a blood pressure of 224/131 She states that she was previously taking metoprolol and for 2 months her blood pressure was within normal range whenever she went to go see her PMD. The patient states that she made the decision on her own to stop taking her metoprolol. She informed her PMD who stated they would 'monitor' her blood pressure by checking it whenever she came in for a visit. Cardene gtt for SBP <145 Initiate hydralazine 50mg po q8h in hopes of transitioning from gtt to oral medication Initiate Coreg 12.5mg for HR control as the patient has been tachcardic (110-130 ) when attempting to get OOB Initial EKG showed sinus rhythm with T wave inversion in the inferior-lateral leads. Repeat EKG this morning is improved, T wave inversion present only in the lateral leads. ECHOcardiogram today, results pending If patient is able to wean from Cardene gtt today, plan for stress test in AM Cardiology consulted, appreciate their recommendations (2) Headache Qualifiers: Headache type: unspecified Headache chronicity pattern: acute headache Intractability: intractable Qualified Code(s): R51 - Headache Is this a current diagnosis for this admission?: Yes Plan: Patient complains of persistent headache. Likely secondary to her HTN. Head CT negative for any intracranial process Tylenol PO and Morphine IV as needed (3) Tachycardia Is this a current diagnosis for this admission?: Yes Plan: Sinus tachycardia, could be secondary to HTN or pain. The patient appears well nourished and hydrated, so I don't believe she is volume depleted. Her lab work is normal, no evidence of electrolyte derangements or anemia to explain her tachycardia. Additionally, she is afebrile. Nursing staff reports that the patient becomes very tachycardic (130s) when attempting to get OOB Initiate Carvedilol 12.5mg PO for better HR control - Time Time Spent with patient: 15-24 minutes Medications reviewed and adjusted accordingly: Yes Anticipated discharge: Home Within: within 24 hours - Inpatient Certification Based on my medical assessment, after consideration of the patient's comorbidities, presenting symptoms, or acuity I expect that the services needed warrant INPATIENT care.: Yes I certify that my determination is in accordance with my understanding of Medicare's requirements for reasonable and necessary INPATIENT services [42 CFR 412.3e].: Yes Medical Necessity: Risk of Complication if Not Cared For in Hospital - Plan Summary Plan Summary: The overall plan is to wean the patient from the Cardene gtt and transition her to oral antihypertensives. Plan for stress test tomorrow if the patient is able to wean from the gtt.
[2018-01-01] MEDS ORDERED: NITROGLYCERIN 0.4 MG/TAB 25 TAB/BOTTLE SL PRN (15:10)
[2018-01-01] MEDS: CARVEDILOL 12.5 MG TABLET PO SCH (21:18)
--- NOTE | 2018-01-01 23:34 | EKG REPORT ---
SEVERITY:- ABNORMAL ECG - SINUS RHYTHM PROLONGED QT INTERVAL : Confirmed by: Marcelina Parra 01-Jan-2018 23:33:50
--- NOTE | 2018-01-01 23:35 | EKG REPORT ---
SEVERITY:- ABNORMAL ECG - SINUS RHYTHM CONSIDER ANTERIOR INFARCT NONSPECIFIC T ABNORMALITIES, LATERAL LEADS : Confirmed by: aMrcelina Parra 01-Jan-2018 23:34:17
[2018-01-02] MEDS: HYDRALAZINE HCL 50 MG TABLET PO SCH ×4 (05:14→23:21)
[2018-01-02] MEDS: MORPHINE SULFATE 10 MG/ML INJ IV PRN ×4 (08:04→23:22)
--- NOTE | 2018-01-02 08:32 | XCELERA REPORT ---
[address] [address] Transthoracic Echocardiogram Report Name: MARIO ALBERTO SERRANO Age: 42 yrs Gender: Female : 1975 Patient Status: Inpatient Patient Location: ICU^606^A Study Date: 01/01/2018 01:14 PM Height: 71 in Weight: 297 lb BSA: 2.5 m2 Procedure: A complete two-dimensional transthoracic echocardiogram was performed (2D, M-mode, spectral and color flow Doppler). The study was technically adequate with some images being suboptimal in quality. Reason For Study: hypertensive emergency, new ekg changes Ordering Physician: JATIN LAWSON Performed By: Rox Banda Interpretation Summary The left ventricular ejection fraction is normal. There is mild concentric left ventricular hypertrophy. The left ventricle is grossly normal size. Doppler measurements suggest pseudonormalized left ventricular relaxation, which is associated with grade II/IV or mild to moderate diastolic dysfunction Wall motion cannot be accurately commented on, but no definite regional wall motion abnormalities noted. The right ventricular systolic function is normal. The right atrium is normal in size The left atrial size is normal. There is a trace amount of mitral regurgitation There is no mitral valve stenosis. There is no aortic valve stenosis No aortic regurgitation is present. There is a trace or physiologic amount of tricuspid regurgitation Tricuspid regurgitation jet envelope not well defined to measure RV systolic pressure accurately. The aortic root is not well visualized but is probably normal size. The inferior vena cava was not well visualized There is no pericardial effusion. MMode/2D Measurements & Calculations RVDd: 2.4 cm LVIDd: 3.4 cm FS: 36.4 % Ao root diam: 2.2 cm IVSd: 1.4 cm LVIDs: 2.1 cm EDV(Teich): 46.1 ml LVPWd: 1.5 cm ESV(Teich): 15.1 ml Ao root area: 3.6 cm2 EF(Teich): 67.3 % LA dimension: 3.3 cm Doppler Measurements & Calculations MV E max jen: MV P1/2t max jen: Ao V2 max: LV V1 max P.0 cm/sec 74.7 cm/sec 181.3 cm/sec 7.5 mmHg MV A max jen: MV P1/2t: 80.7 msec Ao max PG: LV V1 max: 84.5 cm/sec 13.2 mmHg 137.0 cm/sec MV E/A: 0.88 MVA(P1/2t): 2.7 cm2 MV dec slope: 271.0 cm/sec2 PA V2 max: 113.5 cm/sec PA max P.2 mmHg Left Ventricle The left ventricle is grossly normal size. There is mild concentric left ventricular hypertrophy. The left ventricular ejection fraction is normal. Doppler measurements suggest pseudonormalized left ventricular relaxation, which is associated with grade II/IV or mild to moderate diastolic dysfunction. Wall motion cannot be accurately commented on, but no definite regional wall motion abnormalities noted. Right Ventricle The right ventricle is grossly normal size. There is normal right ventricular wall thickness. The right ventricular systolic function is normal. Atria The right atrium is normal in size. The left atrial size is normal. Interarterial septum not well visualized and not well dopplered. Cannot comment on ASD/PFO presence. Mitral Valve The mitral valve is grossly normal. There is no mitral valve stenosis. There is a trace amount of mitral regurgitation. Aortic Valve The aortic valve is not well visualized secondary to technical limitations. There is no aortic valve stenosis. No aortic regurgitation is present. Tricuspid Valve The tricuspid valve is not well visualized, but is grossly normal. There is no tricuspid stenosis. There is a trace or physiologic amount of tricuspid regurgitation. Tricuspid regurgitation jet envelope not well defined to measure RV systolic pressure accurately. Pulmonic Valve The pulmonic valve is not well visualized. Great Vessels The aortic root is not well visualized but is probably normal size. The inferior vena cava was not well visualized. Effusions There is no pericardial effusion. : JATIN LAWSON > Marcelina Parra
[2018-01-02] MEDS: CARVEDILOL 12.5 MG TABLET PO SCH ×2 (09:20→21:03)
[2018-01-02] MEDS: ENOXAPARIN SODIUM INJ 40 MG/0.4 ML DISP.SYRIN SUBCUT SCH (09:23)
[2018-01-02 09:57] LABS: ABSOLUTE EOSINOPHILS # (AUTO) 0.1 10^3/uL (0.0-0.6); ABSOLUTE LYMPHOCYTES (AUTO) 1.4 10^3/uL (0.5-4.7); ABSOLUTE MONOCYTES (AUTO) 0.4 10^3/uL (0.1-1.4); ABSOLUTE NEUT (AUTO) 4.2 10^3/uL (1.7-8.2); BASOPHILS % (AUTO) 0.2 % (0-2); EOSINOPHILS % (AUTO) 2.2 % (0-6); HEMATOCRIT 32.7 % (36.0-47.0); HEMOGLOBIN 10.4 g/dL (12.0-15.5); LYMPHOCYTES % (AUTO) 22.4 % (13-45); MEAN CORPUSCULAR HEMOGLOBIN 23.9 pg (27.0-33.4); MEAN CORPUSCULAR HGB CONC 31.7 g/dL (32.0-36.0); MEAN CORPUSCULAR VOLUME 75 fl (80-97); MONOCYTES % (AUTO) 6.4 % (3-13); PLATELET COUNT 531 10^3/uL (150-450); RED BLOOD COUNT 4.35 10^6/uL (3.72-5.28); RED CELL DISTRIBUTION WIDTH 19.9 % (11.5-14.0); SEGMENTED NEUTROPHILS % (AUTO) 68.8 % (42-78); TOTAL CELLS COUNTED % (AUTO) 100 %; WHITE BLOOD COUNT 6.1 10^3/uL (4.0-10.5)
[2018-01-02 10:22] LABS: ANION GAP 12 (5-19); BLOOD UREA NITROGEN 13 mg/dL (7-20); CALCIUM 9.8 mg/dL (8.4-10.2); CARBON DIOXIDE 23 mmol/L (22-30); CHLORIDE 108 mmol/L (98-107); GLUCOSE 112 mg/dL (75-110); POTASSIUM 4.7 mmol/L (3.6-5.0); SODIUM 143.1 mmol/L (137-145)
[2018-01-02] MEDS ORDERED: LANSOPRAZOLE 30 MG TAB.RAP.DR PO ONE (11:00)
[2018-01-02] MEDS ORDERED: AMLODIPINE BESYLATE 5 MG TABLET PO ONE (11:00)
[2018-01-02] MEDS ORDERED: HYDRALAZINE HCL INJ/PF 20 MG/1 ML SDV IV PRN (13:02)
--- NOTE | 2018-01-02 13:05 | Physician Advisory Note ---
Physician Advisor ProgressNote .: Pursuant to the plan for [facility], I have reviewed the medical record for this patient. Physician Advisor Statement: Nice documentation of hypertensive emergency, evidenced by FAJARDO & dizziness, & of medical necessity & decision making. Please consider documenting, if you agree; 1. "Obesity with BMI 55" Thanks! CK
[2018-01-02] MEDS: ACETAMINOPHEN 325 MG TABLET PO PRN (14:42)
[2018-01-02] MEDS: MAG HYDROX/AL HYDROX/SIMETH SUSP 30 ML UDCUP PO PRN ×2 (14:47→18:49)
--- NOTE | 2018-01-02 16:21 | PDOC PROGRESS REPORT ---
Subjective Progress Note for:: 01/02/18 Subjective:: MARIO ALBERTO SERRANO is a 42 y.o. female who presented to the emergency department with a chief complaint of headache and dizziness for 2 days. The patient's blood pressure upon presentation was 224/131. She was treated with IV labetalol and Cardene gtt. head CT negative for acute intracranial process. Patient was seen this morning on rounds, she is resting comfortably in bed on room air. She complains of a persistent headache. She denies blurry vision, neck pain, nausea, vomiting or chest pain. The patient was weaned from her Cardene gtt yesterday at 1500. Since that time her blood pressure has been moderately controlled with oral agents. Plan to adjust regimen today for better BP control. Reason For Visit: HYPERTENSIVE EMERGENCY Physical Exam Vital Signs: Temp Pulse Resp BP Pulse Ox 98.1 F 96 18 155/95 H 98 01/02/18 07:43 01/02/18 07:43 01/02/18 07:43 01/02/18 07:43 01/02/18 07:43 Intake & Output 01/01/18 01/02/18 01/03/18 06:59 06:59 06:59 Intake Total 3620 Output Total 1250 Balance 2370 Weight 134 kg General appearance: PRESENT: no acute distress, well-developed, well-nourished Head exam: PRESENT: atraumatic, normocephalic Eye exam: PRESENT: conjunctiva pink, EOMI, PERRLA. ABSENT: scleral icterus Mouth exam: PRESENT: moist, tongue midline Neck exam: PRESENT: full ROM. ABSENT: carotid bruit, JVD, lymphadenopathy, thyromegaly Respiratory exam: PRESENT: clear to auscultation vitor, symmetrical, unlabored. ABSENT: rales, rhonchi, wheezes Cardiovascular exam: PRESENT: RRR, +S1, +S2. ABSENT: diastolic murmur, rubs, systolic murmur Pulses: PRESENT: normal radial pulses, normal dorsalis pedis pul Vascular exam: PRESENT: normal capillary refill GI/Abdominal exam: PRESENT: normal bowel sounds, soft. ABSENT: distended, guarding, mass, organolmegaly, rebound, tenderness Rectal exam: PRESENT: deferred Extremities exam: PRESENT: full ROM. ABSENT: calf tenderness, clubbing, pedal edema Musculoskeletal exam: PRESENT: ambulatory, full ROM Neurological exam: PRESENT: alert, awake, oriented to person, oriented to place , oriented to time, oriented to situation. ABSENT: motor sensory deficit Psychiatric exam: PRESENT: appropriate affect, normal mood Skin exam: PRESENT: dry, intact, warm. ABSENT: cyanosis, rash Results Laboratory Results: 01/02/18 09:41 01/02/18 09:41 01/02/18 01/02/18 09:41 09:41 WBC 6.1 RBC 4.35 Hgb 10.4 L Hct 32.7 L MCV 75 L MCH 23.9 L MCHC 31.7 L RDW 19.9 H Plt Count 531 H Seg Neutrophils % 68.8 Lymphocytes % 22.4 Monocytes % 6.4 Eosinophils % 2.2 Basophils % 0.2 Absolute Neutrophils 4.2 Absolute Lymphocytes 1.4 Absolute Monocytes 0.4 Absolute Eosinophils 0.1 Absolute Basophils 0.0 Sodium 143.1 Potassium 4.7 Chloride 108 H Carbon Dioxide 23 Anion Gap 12 BUN 13 Creatinine 0.82 Est GFR ( Amer) > 60 Est GFR (Non-Af Amer) > 60 Glucose 112 H Calcium 9.8 Magnesium 2.0 01/01/18 01/01/18 15:30 19:11 Troponin I < 0.012 < 0.012 Impressions: Head CT 12/31/17 17:07 IMPRESSION: Maxillary sinus disease. Mild microvascular ischemic changes with no acute imaging findings in the brain. EVIDENCE OF ACUTE STROKE: NO. Chest X-Ray 12/31/17 18:59 IMPRESSION: NO ACUTE RADIOGRAPHIC FINDING IN THE CHEST. Status: Imported from PACS Assessment & Plan - Diagnosis (1) Hypertensive emergency Is this a current diagnosis for this admission?: Yes Plan: Improving. The patient presents with complaints of headache and dizziness and a blood pressure of 224/131 She states that she was previously taking metoprolol and for 2 months her blood pressure was within normal range whenever she went to go see her PMD. The patient states that she made the decision on her own to stop taking her metoprolol. She informed her PMD who stated they would 'monitor' her blood pressure by checking it whenever she came in for a visit. Initially placed on Cardene gtt, has since been transitioned to oral agents Initiated Norvasc 10 mg p.o. daily for better blood pressure control. Continue hydralazine 50mg po q8h and initiated IV hydralazine 10mg q4h for SBP > 160 Continue Coreg 12.5mg for HR control Initial EKG showed sinus rhythm with T wave inversion in the inferior-lateral leads. Repeat EKG yesterday morning is improved, T wave inversion present only in the lateral leads. ECHOcardiogram today, results are relatively benign. Grade 2 mild to moderate diastolic dysfunction. Mild concentric LVH. Cardiology consulted, appreciate their recommendations (2) Headache Qualifiers: Headache type: unspecified Headache chronicity pattern: acute headache Intractability: intractable Qualified Code(s): R51 - Headache Is this a current diagnosis for this admission?: Yes Plan: Patient complains of persistent headache. Likely secondary to her HTN. Head CT negative for any intracranial process Tylenol PO and Morphine IV as needed (3) Tachycardia Is this a current diagnosis for this admission?: Yes Plan: Resolved. Initiated Carvedilol 12.5mg PO for better HR control, and the patient has remained in NSR today. Sinus tachycardia, could be secondary to HTN or pain. The patient appears well nourished and hydrated, so I don't believe she is volume depleted. Her lab work is normal, no evidence of electrolyte derangements or anemia to explain her tachycardia. Additionally, she is afebrile. (4) Mild acid reflux Is this a current diagnosis for this admission?: Yes Plan: Patient endorses burning substernal pain 30 minutes after eating each meal. Initiate Prevacid 30 mg daily. As needed Maalox - Time Time Spent with patient: 15-24 minutes Medications reviewed and adjusted accordingly: Yes Anticipated discharge: Home Within: within 48 hours - Inpatient Certification Based on my medical assessment, after consideration of the patient's comorbidities, presenting symptoms, or acuity I expect that the services needed warrant INPATIENT care.: Yes I certify that my determination is in accordance with my understanding of Medicare's requirements for reasonable and necessary INPATIENT services [42 CFR 412.3e].: Yes Medical Necessity: Risk of Complication if Not Cared For in Hospital - Plan Summary Plan Summary: Ultimately, the plan is to discharge the patient home with her new antihypertension regimen. She will require close follow-up to rn delivery post discharge.
--- NOTE | 2018-01-02 18:51 | PDOC CONSULTATION ---
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 Patient is a known case of hypertension but she stopped taking her medications after she was told her blood pressure was controlled. He patient is found to have markedly elevated blood pressure in the range of 224/131 and 117/127. Patient was given IV labetalol twice but her blood pressure does not budge. Later patient has been started on Cardene drip. Her CT scan is negative for acute intracranial process. She denies blurry vision or any seizure activity. No fever, chills, nausea, cough, vomiting, palpitation or diaphoresis. No urinary complaints This history obtained by the hospitalist was reviewed and confirmed. Patient is denying any chest pain. She claims that she has been noncompliant with medications. Patient was seen in the unit. Have ordered patient to be started on carvedilol. Intermittent IV labetalol for high blood pressure. These orders were given to the nurses in the unit. Cardene drip to be tapered. Patient also started on Norvasc. Past Medical History Cardiac Medical History: Reports: Hypertension Denies: Congestive Heart Failure, DVT, Myocardial Infarction, Hyperlipidema, Pulmonary Embolism Pulmonary Medical History: Denies: Asthma, Chronic Obstructive Pulmonary Disease (COPD), Tuberculosis Neurological Medical History: Denies: Seizures Endocrine Medical History: Denies: Diabetes Mellitus Type 1, Diabetes Mellitus Type 2, Hyperthyroidism, Hypothyroidism GI Medical History: Denies: Cirrhosis, Gastroesophageal Reflux Disease, Hepatitis Musculoskeltal Medical History: Reports: Arthritis - Osteoarthritis Skin Medical History: Denies: Eczema, Psoriasis Psychiatric Medical History: Reports: Depression Past Surgical History Past Surgical History: Reports: Section, Orthopedic Surgery - right knee, Tubal Ligation Denies: Hysterectomy, Pacemaker Social History Information Source: Patient Lives with: Family Smoking Status: Current Every Day Smoker Cigars Per Day: 2 Frequency of Alcohol Use: Rare Hx Recreational Drug Use: No Drugs: None Hx Prescription Drug Abuse: No - Advance Directive Resuscitation Status: Full Code Family History Family History: Hypertension Parental Family History Reviewed: Yes Children Family History Reviewed: Yes Sibling(s) Family History Reviewed.: Yes Medication/Allergy Home Medications: Amlodipine Besylate [Norvasc 10 mg Tablet] 10 mg PO DAILY #30 tablet 01/04/18 Aspirin [Ecotrin 81 mg EC Tablet] 81 mg PO QPM #30 tabec 01/04/18 Atorvastatin Calcium [Lipitor 40 mg Tablet] 40 mg PO QHS #30 tablet 01/04/18 Carvedilol [Coreg 12.5 mg Tablet] 25 mg PO Q12 #60 tablet 01/04/18 Hydralazine HCl [Apresoline 50 mg Tablet] 50 mg PO Q6 #120 tablet 01/04/18 Hydrochlorothiazide [Hydrodiuril 12.5 mg Capsule] 12.5 mg PO QAM #30 capsule 01/17 Allergies/Adverse Reactions: LIONEL Inhibitors Allergy (Verified 12/31/17 16:32) ARB-Angiotensin Receptor Antagonist Allergy (Verified 12/31/17 16:32) Physical Exam Vital Signs: Temp Pulse Resp BP Pulse Ox 98.6 F 90 13 128/89 H 100 01/01/18 19:32 01/01/18 18:00 01/01/18 18:11 01/01/18 18:11 01/01/18 18:11 Intake & Output 12/31/17 01/01/18 01/02/18 06:59 06:59 06:59 Intake Total 2707 Output Total 1250 Balance 1457 Weight 133.2 kg Exam: GENERAL: well-nourished and in no acute distress. Alert and oriented x3 HEAD: Atraumatic, normocephalic. EYES: Pupils equal round and reactive to light, extraocular movements intact, sclera anicteric, conjunctiva are normal. ENT: TMs normal, nares patent, oropharynx clear without exudates. Moist mucous membranes. No oral ulcerations or bleeding gums noted NECK: supple without lymphadenopathy. Trachea is central. No cervical or axillary lymphadenopathy noted. Carotids are 2+, JVD WNL LUNGS: Respiration seems nonlabored, no significant accessory muscle action noted. Breath sounds clear to auscultation bilaterally and equal noted. No wheezes rales or rhonchi noted. No significant dullness noted on percussion. CHEST: Palpation of the chest wall shows no significant chest wall tenderness. 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 ABDOMEN: Soft, no significant tenderness appreciated, normoactive bowel sounds. No guarding, no rebound. No rigidity noted . No masses appreciated. EXTREMITIES: Pedal pulses are 1-2+, no calf tenderness noted. No clubbing or cyanosis. Trace to 1+ pedal edema noted NEUROLOGICAL: Focused neurological exam showed no significant neurologic deficit. Normal speech, no focal weakness appreciated. PSYCH: Normal mood, normal affect. Judgment and insight within normal limits. SKIN: No significant ecchymosis, skin is noted to be warm. MUSCULOSKELETAL EXAM: No significant acute joint swelling noted. Results Laboratory Results: 01/01/18 04:35 01/01/18 04:35 01/01/18 01/01/18 04:35 04:35 WBC 7.3 RBC 4.22 Hgb 10.2 L Hct 32.6 L MCV 77 L MCH 24.3 L MCHC 31.4 L RDW 20.3 H Plt Count 541 H Seg Neutrophils % 58.5 Lymphocytes % 30.0 Monocytes % 7.9 Eosinophils % 2.7 Basophils % 0.9 Absolute Neutrophils 4.3 Absolute Lymphocytes 2.2 Absolute Monocytes 0.6 Absolute Eosinophils 0.2 Absolute Basophils 0.1 Sodium 143.7 Potassium 4.5 Chloride 107 Carbon Dioxide 26 Anion Gap 11 BUN 14 Creatinine 0.85 Est GFR ( Amer) > 60 Est GFR (Non-Af Amer) > 60 Glucose 108 Calcium 9.6 Total Bilirubin 0.2 AST 14 ALT 22 Alkaline Phosphatase 57 Total Protein 6.5 Albumin 3.7 01/01/18 01/01/18 15:30 19:11 Troponin I < 0.012 < 0.012 EKG Comments: Sinus rhythm, LVH with secondary ST-T wave changes Impressions: Head CT 12/31/17 17:07 IMPRESSION: Maxillary sinus disease. Mild microvascular ischemic changes with no acute imaging findings in the brain. EVIDENCE OF ACUTE STROKE: NO. Chest X-Ray 12/31/17 18:59 IMPRESSION: NO ACUTE RADIOGRAPHIC FINDING IN THE CHEST. Assessment & Plan - Diagnosis (1) Hypertensive emergency Is this a current diagnosis for this admission?: Yes (2) Noncompliance with medications Is this a current diagnosis for this admission?: Yes (3) Obesity Qualifiers: Obesity type: unspecified obesity type Serious obesity comorbidity presence : unspecified whether serious comorbidity present Is this a current diagnosis for this admission?: Yes (4) Sleep disorder breathing Is this a current diagnosis for this admission?: Yes (5) Morbid obesity with body mass index of 40.0-49.9 Is this a current diagnosis for this admission?: Yes - Notes Notes: Severe hypertension: Currently blood pressure coming under better control. Have been in talks with the unit nurse about medications. Severe hypertension most likely related to noncompliance with medication, salt restriction. Patient also may have underlying sleep apnea syndrome. If blood pressure is difficult to control, consider evaluation for renal artery stenosis, urinary catecholamine excretion and also cortisol level. May also consider aldosterone and rennin ratio. Obesity: Patient has been encouraged in weight loss. Noncompliance with medications: Patient advised compliance with medications. Sleep disordered breathing: Discussed that she will benefit from treatment of sleep apnea. Discussed that she would benefit from sleep study. - Time Time Spent: 30 to 50 Minutes - More than 50% of the time spent coordinating care , discussing management plans with involved caregivers. Management plans discussed with involved personnels. Medical decision making was of moderate to high complexity, patient's has multiple comorbidities. Medications reviewed and adjusted accordingly: Yes
--- NOTE | 2018-01-02 23:35 | EKG REPORT ---
SEVERITY:- ABNORMAL ECG - SINUS RHYTHM BORDERLINE R WAVE PROGRESSION, ANTERIOR LEADS ABNORMAL T, CONSIDER ISCHEMIA, DIFFUSE LEADS LVH : Confirmed by: Marcelina Parra 02-Jan-2018 23:34:10
[2018-01-03] MEDS: HYDRALAZINE HCL 50 MG TABLET PO SCH ×3 (05:04→17:16)
[2018-01-03] MEDS: LANSOPRAZOLE 30 MG TAB.RAP.DR PO SCH (05:04)
[2018-01-03] MEDS: MORPHINE SULFATE 10 MG/ML INJ IV PRN ×3 (08:04→21:46)
[2018-01-03] MEDS: CARVEDILOL 12.5 MG TABLET PO SCH ×2 (09:19→21:37)
[2018-01-03] MEDS: AMLODIPINE BESYLATE 10 MG TABLET PO SCH (09:20)
[2018-01-03] MEDS: ENOXAPARIN SODIUM INJ 40 MG/0.4 ML DISP.SYRIN SUBCUT SCH (09:24)
[2018-01-03] MEDS ORDERED: AMLODIPINE BESYLATE 5 MG TABLET PO SCH ×2 (10:00)
--- NOTE | 2018-01-03 11:55 | PDOC PROGRESS REPORT ---
Subjective Progress Note for:: 01/03/18 Subjective:: Blood pressure coming under better control. No other significant complaints. Patient seems to be doing better. Pt is denying any chest arm or neck discomfort. Patient denying any PND, orthopnea. Patient denied any sustained palpitations, dizziness, syncope, near syncope. Patient denying any fever chills. Patient denying any other significant discomfort. Patient is maintaining sinus rhythm. Review of systems: Rest review of systems negative. Medications: Medications have been reviewed. Reason For Visit: HYPERTENSIVE EMERGENCY Physical Exam Vital Signs: Temp Pulse Resp BP Pulse Ox 97.8 F 96 12 149/107 H 100 01/03/18 07:51 01/03/18 07:51 01/03/18 07:51 01/03/18 07:51 01/03/18 07:51 Intake & Output 01/02/18 01/03/18 01/04/18 06:59 06:59 06:59 Intake Total 3620 1154 Output Total 1250 Balance 2370 1154 Weight 134 kg 134.5 kg Exam: GENERAL: well-nourished and in no acute distress. Alert and oriented x3 HEAD: Atraumatic, normocephalic. EYES: Pupils equal round and reactive to light, extraocular movements intact, sclera anicteric, conjunctiva are normal. ENT: TMs normal, nares patent, oropharynx clear without exudates. Moist mucous membranes. No oral ulcerations or bleeding gums noted NECK: supple without lymphadenopathy. Trachea is central. No cervical or axillary lymphadenopathy noted. Carotids are 2+, JVD WNL LUNGS: Respiration seems nonlabored, no significant accessory muscle action noted. Breath sounds clear to auscultation bilaterally and equal noted. No wheezes rales or rhonchi noted. No significant dullness noted on percussion. CHEST: Palpation of the chest wall shows no significant chest wall tenderness. 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 ABDOMEN: Soft, no significant tenderness appreciated, normoactive bowel sounds. No guarding, no rebound. No rigidity noted . No masses appreciated. EXTREMITIES: Pedal pulses are 1-2+, no calf tenderness noted. No clubbing or cyanosis. negative pedal edema noted NEUROLOGICAL: Focused neurological exam showed no significant neurologic deficit. Normal speech, no focal weakness appreciated. PSYCH: Normal mood, normal affect. Judgment and insight within normal limits. SKIN: No significant ecchymosis, skin is noted to be warm. MUSCULOSKELETAL EXAM: No significant acute joint swelling noted. Results Laboratory Results: 01/02/18 09:41 01/02/18 09:41 01/01/18 01/01/18 15:30 19:11 Troponin I < 0.012 < 0.012 Impressions: Head CT 12/31/17 17:07 IMPRESSION: Maxillary sinus disease. Mild microvascular ischemic changes with no acute imaging findings in the brain. EVIDENCE OF ACUTE STROKE: NO. Chest X-Ray 12/31/17 18:59 IMPRESSION: NO ACUTE RADIOGRAPHIC FINDING IN THE CHEST. Assessment & Plan - Diagnosis (1) Hypertensive emergency Is this a current diagnosis for this admission?: Yes (2) Noncompliance with medications Is this a current diagnosis for this admission?: Yes (3) Obesity Qualifiers: Obesity type: unspecified obesity type Serious obesity comorbidity presence : unspecified whether serious comorbidity present Is this a current diagnosis for this admission?: Yes (4) Sleep disorder breathing Is this a current diagnosis for this admission?: Yes (5) Morbid obesity with body mass index of 40.0-49.9 Is this a current diagnosis for this admission?: Yes - Notes Notes: Severe hypertension: Currently blood pressure coming under better control. Patient seems to be on a good regimen. Will add small dose of diuretic. Severe hypertension most likely related to noncompliance with medication, salt restriction. Patient also may have underlying sleep apnea syndrome. If blood pressure is difficult to control, consider evaluation for renal artery stenosis, urinary catecholamine excretion and also cortisol level. May also consider aldosterone and rennin ratio. However patient's blood pressure is coming under good control. Renal functions are noted to be normal. Obesity: Patient has been encouraged in weight loss. Noncompliance with medications: Patient advised compliance with medications. Sleep disordered breathing: Discussed that she will benefit from treatment of sleep apnea. Discussed that she would benefit from sleep study. - Time Time with patient: 15-25 minutes - More than 50% of the time spent coordinating care, discussing management plans with involved caregivers. Management plans discussed with involved personnels. Medical decision making was of moderate to high complexity, patient's has multiple comorbidities. Medications reviewed and adjusted accordingly: Yes
[2018-01-03] MEDS ORDERED: PROCHLORPERAZINE EDISYLATE INJ 10 MG/2 ML VIAL IV ONE (12:31)
[2018-01-03] MEDS ORDERED: NORMAL SALINE 1000 ML 500 ML IV PRN (12:32)
[2018-01-03] MEDS ORDERED: KETOROLAC TROMETHAMINE INJ/PF 30 MG/1 ML SDV IV ONE (13:30)
[2018-01-03] MEDS ORDERED: DIPHENHYDRAMINE HCL 50 MG/ML VIAL IV ONE (13:30)
[2018-01-03] MEDS: MAG HYDROX/AL HYDROX/SIMETH SUSP 30 ML UDCUP PO PRN ×2 (13:42→18:12)
[2018-01-03] MEDS ORDERED: FUROSEMIDE 20 MG TABLET PO SCH (17:45)
--- NOTE | 2018-01-03 17:48 | PDOC PROGRESS REPORT ---
Subjective Progress Note for:: 01/03/18 Subjective:: MARIO ALBERTO SERRANO is a 42 y.o. female who presented to the emergency department with a chief complaint of headache and dizziness for 2 days. The patient's blood pressure upon presentation was 224/131. She was treated with IV labetalol and Cardene gtt. head CT negative for acute intracranial process. Patient was seen this morning on rounds, she is resting comfortably in bed on room air. She complains of a persistent mild headache. She denies blurry vision, neck pain, nausea, vomiting or chest pain. Blood pressure has been moderately controlled with oral agents but her SBP is consistently 140-155. Plan to adjust regimen today for better BP control. Reason For Visit: HYPERTENSIVE EMERGENCY Physical Exam Vital Signs: Temp Pulse Resp BP Pulse Ox 98.5 F 98 12 147/97 H 99 01/03/18 16:12 01/03/18 16:12 01/03/18 16:12 01/03/18 16:12 01/03/18 16:12 Intake & Output 01/02/18 01/03/18 01/04/18 06:59 06:59 06:59 Intake Total 3620 1154 300 Output Total 1250 Balance 2370 1154 300 Weight 134 kg 134.5 kg General appearance: PRESENT: no acute distress, well-developed, well-nourished Head exam: PRESENT: atraumatic, normocephalic Eye exam: PRESENT: conjunctiva pink, EOMI, PERRLA. ABSENT: scleral icterus Ear exam: PRESENT: normal external ear exam Mouth exam: PRESENT: moist, tongue midline Neck exam: PRESENT: full ROM. ABSENT: carotid bruit, JVD, lymphadenopathy, thyromegaly Respiratory exam: PRESENT: clear to auscultation vitor, symmetrical, unlabored. ABSENT: rales, rhonchi, wheezes Cardiovascular exam: PRESENT: RRR, +S1, +S2. ABSENT: diastolic murmur, rubs, systolic murmur Pulses: PRESENT: normal radial pulses, normal dorsalis pedis pul Vascular exam: PRESENT: normal capillary refill GI/Abdominal exam: PRESENT: normal bowel sounds, soft. ABSENT: distended, guarding, mass, organolmegaly, rebound, tenderness Rectal exam: PRESENT: deferred Extremities exam: PRESENT: full ROM. ABSENT: calf tenderness, clubbing, pedal edema Musculoskeletal exam: PRESENT: ambulatory, full ROM Neurological exam: PRESENT: alert, awake, oriented to person, oriented to place , oriented to time, oriented to situation Psychiatric exam: PRESENT: appropriate affect Skin exam: PRESENT: dry, intact, warm. ABSENT: cyanosis, rash Results Laboratory Results: 01/02/18 09:41 01/02/18 09:41 01/01/18 01/01/18 15:30 19:11 Troponin I < 0.012 < 0.012 Impressions: Head CT 12/31/17 17:07 IMPRESSION: Maxillary sinus disease. Mild microvascular ischemic changes with no acute imaging findings in the brain. EVIDENCE OF ACUTE STROKE: NO. Chest X-Ray 12/31/17 18:59 IMPRESSION: NO ACUTE RADIOGRAPHIC FINDING IN THE CHEST. Status: Imported from PACS Assessment & Plan - Diagnosis (1) Hypertensive emergency Is this a current diagnosis for this admission?: Yes Plan: Improving. The patient presents with complaints of headache and dizziness and a blood pressure of 224/131 She states that she was previously taking metoprolol and for 2 months her blood pressure was within normal range whenever she went to go see her PMD. The patient states that she made the decision on her own to stop taking her metoprolol. She informed her PMD who stated they would 'monitor' her blood pressure by checking it whenever she came in for a visit. Initially placed on Cardene gtt, has since been transitioned to oral agents Continue Norvasc 10 mg p.o. daily, hydralazine 50mg po q8h, IV hydralazine 10mg q4h for SBP > 160 Continue Coreg 12.5mg for HR control Initiate low dose HCTZ per cardiology recommendations Initial EKG showed sinus rhythm with T wave inversion in the inferior-lateral leads. Repeat EKGs show improvement, currently NSR with no acute infarct or ischemia. ECHOcardiogram today, results are relatively benign. Grade 2 mild to moderate diastolic dysfunction. Mild concentric LVH. Cardiology consulted, appreciate their recommendations (2) Headache Qualifiers: Headache type: unspecified Headache chronicity pattern: acute headache Intractability: intractable Qualified Code(s): R51 - Headache Is this a current diagnosis for this admission?: Yes Plan: Patient complains of persistent headache. Likely secondary to her HTN. Head CT negative for any intracranial process Tylenol PO and Morphine IV as needed Administered cocktail of compazine, toradol, benadryl and IVF today, but patient still complains of pain. Plan to adjust anti-HTN medications, with a goal SBP 130-140. Hopefully this will offer relief from her headaches (3) Tachycardia Is this a current diagnosis for this admission?: Yes Plan: Resolved. Initiated Carvedilol 12.5mg PO for better HR control, and the patient has remained in NSR today. Sinus tachycardia, could be secondary to HTN or pain. The patient appears well nourished and hydrated, so I don't believe she is volume depleted. Her lab work is normal, no evidence of electrolyte derangements or anemia to explain her tachycardia. Additionally, she is afebrile. (4) Mild acid reflux Is this a current diagnosis for this admission?: Yes Plan: Resolved. Patient was complaining of burning substernal pain 30 minutes after eating each meal. Initiate Prevacid 30 mg daily. As needed Maalox The patient has been chest pain-free for > 36 hours - Time Time Spent with patient: 15-24 minutes Medications reviewed and adjusted accordingly: Yes Anticipated discharge: Home - Inpatient Certification Based on my medical assessment, after consideration of the patient's comorbidities, presenting symptoms, or acuity I expect that the services needed warrant INPATIENT care.: Yes I certify that my determination is in accordance with my understanding of Medicare's requirements for reasonable and necessary INPATIENT services [42 CFR 412.3e].: Yes Medical Necessity: Risk of Complication if Not Cared For in Hospital - Plan Summary Plan Summary: Anticipate discharge within 24 hours. The patient's blood pressure is moderately controlled with oral agents. Will adjust regimen today monitor overnight and plan to discharge home in the morning.
[2018-01-03] MEDS ORDERED: ASPIRIN 81 MG TABLET, ENT COATED PO SCH (18:00)
[2018-01-03] MEDS ORDERED: ATORVASTATIN CALCIUM 40 MG TABLET PO SCH (22:00)
[2018-01-04] MEDS: HYDRALAZINE HCL 50 MG TABLET PO SCH ×3 (00:01→11:49)
[2018-01-04] MEDS: LANSOPRAZOLE 30 MG TAB.RAP.DR PO SCH (05:37)
[2018-01-04 05:59] LABS: ANION GAP 11 (5-19); BLOOD UREA NITROGEN 23 mg/dL (7-20); CALCIUM 9.7 mg/dL (8.4-10.2); CARBON DIOXIDE 24 mmol/L (22-30); CHLORIDE 108 mmol/L (98-107); GLUCOSE 90 mg/dL (75-110); POTASSIUM 4.8 mmol/L (3.6-5.0); SODIUM 143.3 mmol/L (137-145)
[2018-01-04] MEDS ORDERED: HYDROCHLOROTHIAZIDE 12.5 MG CAPSULE PO SCH (08:00)
[2018-01-04] MEDS: CARVEDILOL 12.5 MG TABLET PO SCH (09:01)
[2018-01-04] MEDS: AMLODIPINE BESYLATE 10 MG TABLET PO SCH (09:01)
[2018-01-04] MEDS: ENOXAPARIN SODIUM INJ 40 MG/0.4 ML DISP.SYRIN SUBCUT SCH (09:01)
[2018-01-04] MEDS: MORPHINE SULFATE 10 MG/ML INJ IV PRN (09:04)
[2018-01-04 12:12] VITALS: BP 128/89
--- NOTE | 2018-01-04 12:17 | PDOC PROGRESS REPORT ---
Subjective Progress Note for:: 01/02/18 Subjective:: Blood pressure coming under better control. Patient seems to be doing better with gradual improvement. Pt is denying any chest arm or neck discomfort. Patient denying any PND, orthopnea. Patient denied any sustained palpitations, dizziness, syncope, near syncope. Patient denying any fever chills. Patient denying any other significant discomfort. Patient is maintaining sinus rhythm. Review of systems: Rest review of systems negative. Medications: Medications have been reviewed. Reason For Visit: HYPERTENSIVE EMERGENCY Physical Exam Vital Signs: Temp Pulse Resp BP Pulse Ox 98.0 F 98 18 131/78 H 100 01/02/18 16:04 01/02/18 16:04 01/02/18 16:04 01/02/18 16:04 01/02/18 16:04 Intake & Output 01/01/18 01/02/18 01/03/18 06:59 06:59 06:59 Intake Total 3620 350 Output Total 1250 Balance 2370 350 Weight 134 kg Exam: GENERAL: well-nourished and in no acute distress. Alert and oriented x3 HEAD: Atraumatic, normocephalic. EYES: Pupils equal round and reactive to light, extraocular movements intact, sclera anicteric, conjunctiva are normal. ENT: TMs normal, nares patent, oropharynx clear without exudates. Moist mucous membranes. No oral ulcerations or bleeding gums noted NECK: supple without lymphadenopathy. Trachea is central. No cervical or axillary lymphadenopathy noted. Carotids are 2+, JVD WNL LUNGS: Respiration seems nonlabored, no significant accessory muscle action noted. Breath sounds clear to auscultation bilaterally and equal noted. No wheezes rales or rhonchi noted. No significant dullness noted on percussion. CHEST: Palpation of the chest wall shows no significant chest wall tenderness. 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 ABDOMEN: Soft, no significant tenderness appreciated, normoactive bowel sounds. No guarding, no rebound. No rigidity noted . No masses appreciated. EXTREMITIES: Pedal pulses are 1-2+, no calf tenderness noted. No clubbing or cyanosis. negative pedal edema noted NEUROLOGICAL: Focused neurological exam showed no significant neurologic deficit. Normal speech, no focal weakness appreciated. PSYCH: Normal mood, normal affect. Judgment and insight within normal limits. SKIN: No significant ecchymosis, skin is noted to be warm. MUSCULOSKELETAL EXAM: No significant acute joint swelling noted. Results Laboratory Results: 01/02/18 09:41 01/02/18 09:41 01/02/18 01/02/18 09:41 09:41 WBC 6.1 RBC 4.35 Hgb 10.4 L Hct 32.7 L MCV 75 L MCH 23.9 L MCHC 31.7 L RDW 19.9 H Plt Count 531 H Seg Neutrophils % 68.8 Lymphocytes % 22.4 Monocytes % 6.4 Eosinophils % 2.2 Basophils % 0.2 Absolute Neutrophils 4.2 Absolute Lymphocytes 1.4 Absolute Monocytes 0.4 Absolute Eosinophils 0.1 Absolute Basophils 0.0 Sodium 143.1 Potassium 4.7 Chloride 108 H Carbon Dioxide 23 Anion Gap 12 BUN 13 Creatinine 0.82 Est GFR ( Amer) > 60 Est GFR (Non-Af Amer) > 60 Glucose 112 H Calcium 9.8 Magnesium 2.0 01/01/18 01/01/18 15:30 19:11 Troponin I < 0.012 < 0.012 EKG Comments: Telemetry shows sinus rhythm without any sustained tachycardia or bradycardia Impressions: Head CT 12/31/17 17:07 IMPRESSION: Maxillary sinus disease. Mild microvascular ischemic changes with no acute imaging findings in the brain. EVIDENCE OF ACUTE STROKE: NO. Chest X-Ray 12/31/17 18:59 IMPRESSION: NO ACUTE RADIOGRAPHIC FINDING IN THE CHEST. Assessment & Plan - Diagnosis (1) Hypertensive emergency Is this a current diagnosis for this admission?: Yes (2) Obesity Qualifiers: Obesity type: unspecified obesity type Serious obesity comorbidity presence : unspecified whether serious comorbidity present Is this a current diagnosis for this admission?: Yes (3) Sleep disorder breathing Is this a current diagnosis for this admission?: Yes - Notes Notes: Severe hypertension: Currently blood pressure coming under better control. Continue carvedilol, Norvasc. Consider adding back chlorthalidone. Severe hypertension most likely related to noncompliance with medication, salt restriction. Patient also may have underlying sleep apnea syndrome. If blood pressure is difficult to control, consider evaluation for renal artery stenosis, urinary catecholamine excretion and also cortisol level. May also consider aldosterone and rennin ratio. Obesity: Patient has been encouraged in weight loss. Noncompliance with medications: Patient advised compliance with medications. Sleep disordered breathing: Discussed that she will benefit from treatment of sleep apnea. Discussed that she would benefit from sleep study. - Time Time with patient: 15-25 minutes - More than 50% of the time spent coordinating care, discussing management plans with involved caregivers. Management plans discussed with involved personnels. Medical decision making was of moderate to high complexity, patient's has multiple comorbidities. Medications reviewed and adjusted accordingly: Yes
--- NOTE | 2018-01-04 12:21 | PDOC PROGRESS REPORT ---
Subjective Progress Note for:: 01/04/18 Subjective:: Blood pressure noted to be under satisfactory control over the last 24 hours. Patient denying any other significant complaint. Patient seems to be doing better. Pt is denying any chest arm or neck discomfort. Patient denying any PND, orthopnea. Patient denied any sustained palpitations, dizziness, syncope, near syncope. Patient denying any fever chills. Patient denying any other significant discomfort. Patient is maintaining sinus rhythm. Review of systems: Rest review of systems negative. Medications: Medications have been reviewed. Reason For Visit: HYPERTENSIVE EMERGENCY Physical Exam Vital Signs: Temp Pulse Resp BP Pulse Ox 98.5 F 86 16 128/89 H 100 01/04/18 12:00 01/04/18 12:00 01/04/18 12:00 01/04/18 12:00 01/04/18 12:00 Intake & Output 01/03/18 01/04/18 01/05/18 06:59 06:59 06:59 Intake Total 1154 2144 Balance 1154 2144 Weight 134.5 kg 135.3 kg 135.3 kg Exam: GENERAL: well-nourished and in no acute distress. Alert and oriented x3 HEAD: Atraumatic, normocephalic. EYES: Pupils equal round and reactive to light, extraocular movements intact, sclera anicteric, conjunctiva are normal. ENT: TMs normal, nares patent, oropharynx clear without exudates. Moist mucous membranes. No oral ulcerations or bleeding gums noted NECK: supple without lymphadenopathy. Trachea is central. No cervical or axillary lymphadenopathy noted. Carotids are 2+, JVD WNL LUNGS: Respiration seems nonlabored, no significant accessory muscle action noted. Breath sounds clear to auscultation bilaterally and equal noted. No wheezes rales or rhonchi noted. No significant dullness noted on percussion. CHEST: Palpation of the chest wall shows no significant chest wall tenderness. HEART: Trevor [employer]PER[employer], No PSH, 1/6 ADRI aortic area, 1/6 sabillon systolic murmur mitral area, no rubs, no gallops. ABDOMEN: Soft, no significant tenderness appreciated, normoactive bowel sounds. No guarding, no rebound. No rigidity noted . No masses appreciated. EXTREMITIES: Pedal pulses are 1-2+, no calf tenderness noted. No clubbing or cyanosis. negative pedal edema noted NEUROLOGICAL: Focused neurological exam showed no significant neurologic deficit. Normal speech, no focal weakness appreciated. PSYCH: Normal mood, normal affect. Judgment and insight within normal limits. SKIN: No significant ecchymosis, skin is noted to be warm. MUSCULOSKELETAL EXAM: No significant acute joint swelling noted. Results Laboratory Results: 01/02/18 09:41 01/04/18 04:56 01/04/18 04:56 Sodium 143.3 Potassium 4.8 Chloride 108 H Carbon Dioxide 24 Anion Gap 11 BUN 23 H Creatinine 0.89 Est GFR ( Amer) > 60 Est GFR (Non-Af Amer) > 60 Glucose 90 Calcium 9.7 01/01/18 01/01/18 15:30 19:11 Troponin I < 0.012 < 0.012 Impressions: Head CT 12/31/17 17:07 IMPRESSION: Maxillary sinus disease. Mild microvascular ischemic changes with no acute imaging findings in the brain. EVIDENCE OF ACUTE STROKE: NO. Chest X-Ray 12/31/17 18:59 IMPRESSION: NO ACUTE RADIOGRAPHIC FINDING IN THE CHEST. Assessment & Plan - Diagnosis (1) Hypertensive emergency Is this a current diagnosis for this admission?: Yes (2) Obesity Qualifiers: Obesity type: unspecified obesity type Serious obesity comorbidity presence : unspecified whether serious comorbidity present Is this a current diagnosis for this admission?: Yes (3) Sleep disorder breathing Is this a current diagnosis for this admission?: Yes (4) Hyperlipidemia Qualifiers: Hyperlipidemia type: unspecified Qualified Code(s): E78.5 - Hyperlipidemia , unspecified Is this a current diagnosis for this admission?: Yes - Notes Notes: Patient's medical regimen reviewed. This is under satisfactory control. Patient can follow-up with me as an outpatient for blood pressure control. Recommend continue carvedilol at 25 p.o. twice daily, Norvasc 10 mg p.o.daily, could restart chlorthalidone at either 12.5/25 mg p.o. daily. Consider adding spironolactone 25 mg p.o. daily and stopping hydralazine. Patient can follow-up in my office for a blood pressure check on Saturday if discharged today. - Time Time with patient: 15-25 minutes - More than 50% of the time spent coordinating care, discussing management plans with involved caregivers. Management plans discussed with involved personnels. Medical decision making was of moderate to high complexity, patient's has multiple comorbidities. Medications reviewed and adjusted accordingly: Yes
== END 2018-01-04 12:40 | disposition home or self-care (01) | DRG 305 ==
LOC: ER 16:32 → EH 21:32 → ICU 01-01 08:36 → 3W 01-01 21:29
PROVIDERS: ADMIT Internal Medicine; ATTEND Internal Medicine
DX: I16.1 Hypertensive emergency (principal); Z68.43 Body mass index [BMI] 50.0-59.9, adult; I10 Essential (primary) hypertension; E78.5 Hyperlipidemia, unspecified; R00.0 Tachycardia, unspecified; K21.9 Gastro-esophageal reflux disease without esophagitis; E66.01 Morbid (severe) obesity due to excess calories; M19.90 Unspecified osteoarthritis, unspecified site; F17.210 Nicotine dependence, cigarettes, uncomplicated; Z79.82 Long term (current) use of aspirin; Z79.52 Long term (current) use of systemic steroids; Z79.899 Other long term (current) drug therapy; Z91.19 Patient's noncompliance with other medical treatment and regimen
CPT/HCPCS: 36415; 70450; 71045; 80048; 80053; 81001; 83735; 84484; 85025; 93005; 93010; 93306; 96361; 96374; 96375; 99291; J0780; J1200; J1650; J1885; J2270; J2765; J3490; J7030

== ENCOUNTER → 2018-08-19 | Outpatient (CLI) | payer OTHER ==
--- NOTE | 2018-08-19 09:47 | WOMENS IMAGING REPORT ---
EXAM DESCRIPTION: BILAT SCREENING MAMMO W/CAD COMPLETED DATE/TIME: 08/19/2018 9:38 am REASON FOR STUDY: SCREENING MAMMO Z12.31 ENCNTR SCREEN MAMMOGRAM FOR MALIGNANT NEOPLASM OF GUERLINE COMPARISON: 2016 TECHNIQUE: Standard craniocaudal and mediolateral oblique views of each breast recorded using digita l acquisition. LIMITATIONS: None. FINDINGS: No masses, calcifications or architectural distortion. No areas of suspicion. Read with the assistance of CAD. .[facility] - R2 Cenova Version 1.3 .[facility] Imaging - R2 Cenova Version 1.3 .[facility] - R2 Cenova Version 2.4 .[facility] - R2 Cenova Version 2.4 .[facility] - R2 Photocomposition Keyboard Operator Version 9.2 IMPRESSION: NORMAL MAMMOGRAM. BIRADS 1. BREAST DENSITY: b. There are scattered areas of fibroglandular density. BIRAD: 1 NEGATIVE RECOMMENDATION: ROUTINE SCREENING Please continue yearly bilateral screening mammography/tomosynthesis in August 2019 COMMENT: The patient has been notified of the results by letter per SA requirements. Additional no tification policies are in place for contacting patient with suspicious or incomplete findings. Quality ID #[id number]: The [employer] recommends an annual screening mammogram for women aged 40 years or over. This facility utilizes a reminder system to ensure that all patients receive reminder letters, and/or direct phone calls for appointments. This includes reminders for routine scr eening mammograms, diagnostic mammograms, or other Breast Imaging Interventions when appropriate. Th is patient will be placed in the appropriate reminder system. The [employer] (ACR) has developed recommendations for screening MRI of the breast s in certain patient populations, to be used in conjunction with mammography. Breast MRI surveillanc e may be appropriate for women with more than 20% lifetime risk of developing breast cancer as deter mined by genetic testing, significant family history of the disease, or history of mantle radiation f or Hodgkins Disease. ACR Practice Guidelines 2008. TECHNICAL DOCUMENTATION: FINDING NUMBER: (1) ASSESSMENT: (1) JOB ID: [id number] [employer]- All Rights Reserved Reading location - IP/workstation name: [email or web address]
== END ==
LOC: WI 09:20
PROVIDERS: ATTEND Family Medicine
DX: Z12.31 Encounter for screening mammogram for malignant neoplasm of breast (principal)
CPT/HCPCS: 77067

== ENCOUNTER → 2018-09-10 | Outpatient (CLI) | payer OTHER ==
--- NOTE | 2018-09-10 10:18 | RADIOLOGY REPORT (SQ) ---
EXAM DESCRIPTION: LUMBAR SPINE COMPLETE COMPLETED DATE/TIME: 09/10/2018 9:49 am REASON FOR STUDY: LOW BACK PAIN M54.5 LOW BACK PAIN COMPARISON: CT 10/12/2016 NUMBER OF VIEWS: Five views including obliques. TECHNIQUE: AP, lateral, oblique, and sacral radiographic images acquired of the lumbar spine. LIMITATIONS: None. FINDINGS: MINERALIZATION: Normal. SEGMENTATION: Normal. No transitional anatomy. ALIGNMENT: Trace anterolisthesis of L4 on L5. VERTEBRAE: No evidence of fracture. Mild degenerative change with osteophytosis at the thoracolumbar junction. No worrisome bone lesions. DISCS: Mild degenerative change at the thoracolumbar junction, stable compared to prior CT. Addition al mild disc height loss at L4-5 and L5-S1. POSTERIOR ELEMENTS: Facets are well-aligned. No definite infarcts defect. Lower lumbar facet arthro tree. HARDWARE: None in the spine. PARASPINAL SOFT TISSUES: Normal. PELVIS: Intact as visualized. No fractures or worrisome bone lesions. SI joints intact. OTHER: No other significant finding. IMPRESSION: No evidence of acute bony abnormality. Mild degenerative changes at the thoracolumbar junction and at L4 -S1. Mild lower lumbar facet arthr opathy. TECHNICAL DOCUMENTATION: JOB ID: [id number] [employer]- All Rights Reserved Reading location - IP/workstation name: [facility]
== END ==
LOC: OD 09:29
PROVIDERS: ATTEND Family Medicine
DX: M54.5 Low back pain (principal)
CPT/HCPCS: 72110

== ENCOUNTER 2018-12-15 08:52 | Emergency (ER) | payer OTHER ==
--- NOTE | 2018-12-15 09:49 | ER Document Report ---
ED Medical Screen (RME) - General Chief Complaint: Mouth Problem Stated Complaint: MOUTH PAIN Time Seen by Provider: 12/15/18 09:34 Primary Care Provider: SHILO NICHOLS MD [Primary Care Provider] - Follow up as needed TRAVEL OUTSIDE OF THE [place] IN LAST 30 DAYS: No - HPI Patient complains to provider of: HTN Notes: 12/15/18 09:46 Patient was sent here by urgent care for hypertension. The patient has a history of hypertension, she takes 4 different antihypertensive medications. She states that she has not been taking her medications. Foot urgent care today for a mouth sore in the left posterior mouth is been there for the last few weeks, she was noted to be hypertensive and was sent to the emergency department for evaluation. They did an EKG at urgent care. Patient complains of a mild headache at this time. She denies any blurred or loss vision at this time. She denies any unilateral numbness, tingling, weakness. She denies any active chest pain or shortness of breath. Physical exam: Patient is nontoxic-appearing. She has a nonfocal neurological exam. Lungs are clear. White area to the left posterior mouth. No active bleeding. Plan: I have ordered an EKG, some basic screening labs, troponin due to the fact that her diastolic blood pressure is 120. An initial examination was made on the patient as part of the triage process, and it was determined a more comprehensive evaluation was necessary. Initial labs were ordered and patient was transferred to another provider in the ED who assumed care and finished evaluation and plan. - Related Data Allergies/Adverse Reactions: LIONEL Inhibitors Allergy (Verified 12/15/18 09:18) ARB-Angiotensin Receptor Antagonist Allergy (Verified 12/15/18 09:18) Past Medical History - Social History Chew tobacco use (# tins/day): No Frequency of alcohol use: Rare Drug Abuse: Marijuana - Past Medical History Cardiac Medical History: Reports: Hx Hypertension Denies: Hx Congestive Heart Failure, Hx DVT, Hx Heart Attack, Hx Hypercholesterolemia, Hx Pulmonary Embolism Pulmonary Medical History: Denies: Hx Asthma, Hx COPD, Hx Tuberculosis Neurological Medical History: Denies: Hx Seizures Endocrine Medical History: Denies: Hx Diabetes Mellitus Type 1, Hx Diabetes Mellitus Type 2, Hx Hyperthyroidism, Hx Hypothyroidism Renal/ Medical History: Denies: Hx Peritoneal Dialysis GI Medical History: Denies: Hx Cirrhosis, Hx Gastroesophageal Reflux Disease, Hx Hepatitis Musculoskeltal Medical History: Reports Hx Arthritis - Osteoarthritis Skin Medical History: Denies Hx Eczema, Denies Hx Psoriasis Psychiatric Medical History: Reports: Hx Depression Infectious Medical History: Denies: Hx Hepatitis Past Surgical History: Reports: Hx Section, Hx Orthopedic Surgery - right knee, Hx Tubal Ligation. Denies: Hx Hysterectomy, Hx Pacemaker - Immunizations Hx Diphtheria, Pertussis, Tetanus Vaccination: Yes Physical Exam - Vital signs Vitals: Temp Pulse Resp BP Pulse Ox 98.1 F 95 15 157/120 H 99 12/15/18 08:59 12/15/18 08:59 12/15/18 08:59 12/15/18 08:59 12/15/18 08:59 Course - Vital Signs Vital signs: Temp Pulse Resp BP Pulse Ox 98.1 F 95 15 157/120 H 99 12/15/18 08:59 12/15/18 08:59 12/15/18 08:59 12/15/18 08:59 12/15/18 08:59 Doctor's Discharge - Discharge Referrals: SHILO NICHOLS MD [Primary Care Provider] - Follow up as needed
[2018-12-15] MEDS ORDERED: HYDRALAZINE HCL INJ/PF 20 MG/1 ML SDV IV ONE ×3 (10:25→14:57)
[2018-12-15] MEDS ORDERED: PROCHLORPERAZINE EDISYLATE INJ 10 MG/2 ML VIAL IV ONE (10:25)
[2018-12-15] MEDS ORDERED: DIPHENHYDRAMINE HCL 50 MG/ML VIAL IV ONE (10:25)
[2018-12-15 10:26] LABS: ABSOLUTE EOSINOPHILS # (AUTO) 0.1 10^3/uL (0.0-0.6); ABSOLUTE LYMPHOCYTES (AUTO) 1.6 10^3/uL (0.5-4.7); ABSOLUTE MONOCYTES (AUTO) 0.5 10^3/uL (0.1-1.4); ABSOLUTE NEUT (AUTO) 3.5 10^3/uL (1.7-8.2); BASOPHILS % (AUTO) 0.7 % (0-2); EOSINOPHILS % (AUTO) 1.7 % (0-6); HEMATOCRIT 34.5 % (36.0-47.0); LYMPHOCYTES % (AUTO) 27.9 % (13-45); MEAN CORPUSCULAR HEMOGLOBIN 25.6 pg (27.0-33.4); MEAN CORPUSCULAR HGB CONC 31.8 g/dL (32.0-36.0); MEAN CORPUSCULAR VOLUME 81 fl (80-97); MONOCYTES % (AUTO) 8.3 % (3-13); PLATELET COUNT 392 10^3/uL (150-450); RED BLOOD COUNT 4.28 10^6/uL (3.72-5.28); RED CELL DISTRIBUTION WIDTH 16.2 % (11.5-14.0); SEGMENTED NEUTROPHILS % (AUTO) 61.4 % (42-78); TOTAL CELLS COUNTED % (AUTO) 100 %; WHITE BLOOD COUNT 5.6 10^3/uL (4.0-10.5)
[2018-12-15 10:47] LABS: ALANINE AMINOTRANSFERASE 19 U/L (9-52); ALBUMIN 3.7 g/dL (3.5-5.0); ALKALINE PHOSPHATASE 58 U/L (38-126); ANION GAP 6 (5-19); ASPARTATE AMINO TRANSFERASE 15 U/L (14-36); BILIRUBIN,DIRECT 0.3 mg/dL (0.0-0.4); BILIRUBIN,TOTAL 0.3 mg/dL (0.2-1.3); BLOOD UREA NITROGEN 8 mg/dL (7-20); CALCIUM 9.7 mg/dL (8.4-10.2); CARBON DIOXIDE 25 mmol/L (22-30); CHLORIDE 109 mmol/L (98-107); GLUCOSE 89 mg/dL (75-110); POTASSIUM 4.5 mmol/L (3.6-5.0); SODIUM 140.1 mmol/L (137-145); TOTAL PROTEIN 6.9 g/dL (6.3-8.2)
[2018-12-15 11:17] LABS: CREATINE KINASE 37 U/L (30-135)
[2018-12-15] MEDS ORDERED: OXYCODONE-ACETAMINOPHEN 5-325 MG TABLET PO ONE ×2 (11:22→15:19)
[2018-12-15] MEDS ORDERED: CARVEDILOL 12.5 MG TABLET PO ONE (13:10)
[2018-12-15] MEDS ORDERED: CLONIDINE HCL 0.2 MG TABLET PO ONE (13:48)
[2018-12-15] MEDS ORDERED: DOXYCYCLINE HYCLATE 100 MG TABLET PO ONE (13:48)
[2018-12-15] MEDS ORDERED: METOPROLOL TARTRATE PF/INJ 5 MG/5 ML SDV IV ONE (15:19)
[2018-12-15 16:44] VITALS: BP 161/106
--- NOTE | 2018-12-15 18:06 | ER Document Report ---
Entered by DYLAN FLOOD SCRIBE 12/15/18 1026 Acting as scribe for:KATT BRANDT MD ED General - General Chief Complaint: Mouth Problem Stated Complaint: MOUTH PAIN Time Seen by Provider: 12/15/18 09:34 Primary Care Provider: MARY BETH PERES DO [NO LOCAL MD] - Follow up in 1 week Mode of Arrival: Ambulatory Information source: Patient Notes: Patient is a 43 year old female with HTN presents to the emergency department complaining of a mouth sore and a headache. Patient states she presented to urgent care complaining of the same symptoms and was sent to the emergency department due to being hypertensive. Patient states she has had a mouth sore fore "a while" and describes it has white and tender that would occasionally bleed. She states her headache is located posteriorly that is identical to previous headaches. Patient is prescribed Amlodipine, Carvedilol, HCTZ, hydralazine but reports discontinuing use over 1 month ago further stating she lost a lot of weight and believed she no longer needed it. Patient reports she stopped taking her amlodipine a few months ago because it caused swelling. She has stopped the hydralazine long before that. She most recently stopped the carvedilol about a month ago and not sure when she stopped the hydrochlorothiazide. She states she was seen in the office about a month ago and her blood pressure was normal and she had been off her medication for at least a week or more at that time so she felt she did not need her blood pressure medicine. A manual blood pressure was obtained at 240/150. TRAVEL OUTSIDE OF THE [place] IN LAST 30 DAYS: No - Related Data Allergies/Adverse Reactions: LIONEL Inhibitors Allergy (Verified 12/15/18 09:18) ARB-Angiotensin Receptor Antagonist Allergy (Verified 12/15/18 09:18) Past Medical History - General Information source: Patient - Social History Smoking Status: Current Every Day Smoker Chew tobacco use (# tins/day): No Frequency of alcohol use: Rare Drug Abuse: Marijuana Family History: Hypertension Patient has suicidal ideation: No Patient has homicidal ideation: No - Past Medical History Cardiac Medical History: Reports: Hx Hypertension Musculoskeletal Medical History: Reports Hx Arthritis - Osteoarthritis Psychiatric Medical History: Reports: Hx Depression Past Surgical History: Reports: Hx Section, Hx Orthopedic Surgery - right knee, Hx Tubal Ligation - Immunizations Hx Diphtheria, Pertussis, Tetanus Vaccination: Yes Review of Systems - Review of Systems Constitutional: No symptoms reported EENT: See HPI Cardiovascular: No symptoms reported Respiratory: No symptoms reported Gastrointestinal: No symptoms reported Genitourinary: No symptoms reported Female Genitourinary: No symptoms reported Musculoskeletal: No symptoms reported Skin: No symptoms reported Hematologic/Lymphatic: No symptoms reported Neurological/Psychological: See HPI -: Yes All other systems reviewed and negative Physical Exam - Vital signs Vitals: Temp Pulse Resp BP Pulse Ox 98.1 F 95 15 157/120 H 99 12/15/18 08:59 12/15/18 08:59 12/15/18 08:59 12/15/18 08:59 12/15/18 08:59 - Notes Notes: GENERAL: Alert, interacts well. No acute distress. HEAD: Normocephalic, atraumatic. EYES: Pupils equal, round, and reactive to light. Extraocular movements intact. ENT: Oral mucosa moist, tongue midline. There is an approximate 4mm apthous ulcer in the left upper posterior buccal mucosa overlying the 2nd molar, appears thickened, tender to palpate. NECK: Full range of motion. Supple. Trachea midline. LUNGS: Clear to auscultation bilaterally, no wheezes, rales, or rhonchi. No respiratory distress. HEART: Regular rate and rhythm. No murmurs, gallops, or rubs. ABDOMEN: Soft, non-tender. Non-distended. Bowel sounds present in all 4 quadrants. No guarding, rigidity, or rebound. EXTREMITIES: Moves all 4 extremities spontaneously. NEUROLOGICAL: Alert and oriented x3. Normal speech. PSYCH: Normal affect, normal mood. SKIN: Warm, dry, normal turgor. No rashes or lesions noted. Course - Re-evaluation Re-evalutation: 12/15/18 15:20 The patient's blood pressure has been quite difficult to control. She has headaches which is a chronic problem. She is on chronic pain management taking Percocet 5 mg tablets 3 times daily on a chronic basis. Her presenting complaint is an aphthous ulcer in her mouth, but her blood pressure is of much more concerned. I had a long talk with her about the risks of intracranial hemorrhage and the likely outcome should that happen so she at this point understands why it is so important to take her blood pressure medication. I find it very difficult to believe that she had a normal blood pressure in the office a month ago after being off of her medicine for a long period of time. - Vital Signs Vital signs: Temp Pulse Resp BP Pulse Ox 98.4 F 95 8 L 161/106 H 97 12/15/18 16:40 12/15/18 08:59 12/15/18 16:40 12/15/18 16:40 12/15/18 16:40 - Laboratory Result Diagrams: 12/15/18 09:55 12/15/18 09:55 Laboratory results interpreted by me: 12/15/18 12/15/18 09:55 09:55 Hgb 11.0 L Hct 34.5 L MCH 25.6 L MCHC 31.8 L RDW 16.2 H Chloride 109 H - EKG Interpretation by Me EKG shows normal: Sinus rhythm, [place], Intervals, QRS Complexes, ST-T Waves Rate: Normal - 82 Rhythm: NSR Voltage: Consistant with LVH Critical Care Note - Critical Care Note Total time excluding time spent on procedures (mins): 40 Discharge - Discharge Clinical Impression: Aphthous ulcer of mouth, Noncompliance with medication regimen, Hypertensive emergency without congestive heart failure Condition: Stable Disposition: HOME, SELF-CARE Additional Instructions: The sore place in your mouth is called an aphthous ulcer. It is due to trauma to the lining of the inner cheek most likely caused by 1 of your teeth. It gets infected with bacteria from your mouth and becomes difficult to heal. Your put on an antibiotic called doxycycline to help heal this area. It is very important to try to avoid any further trauma to the ulcer area while it heals. Your blood pressure was quite high today and is a serious threat to your health. You should take the medications as prescribed. Follow-up with your doctor next week to recheck your blood pressure to be sure it is controlled and to get refills of your blood pressure medications so that you do not have episodes of extremely high blood pressure again like you have been experiencing. RETURN TO THE EMERGENCY ROOM IF ANY NEW OR WORSENING SYMPTOMS. Prescriptions: Carvedilol [Coreg 25 mg Tablet] 1 tab PO Q12 #30 tab Doxycycline Hyclate 100 mg PO BID #14 tablet. Hydralazine HCl [Apresoline 50 mg Tablet] 50 mg PO Q6 #60 tablet Referrals: JA,MARY BETH, DO [NO LOCAL MD] - Follow up in 1 week Scribe Attestation: 12/15/18 11:47 I personally performed the services described in the documentation, reviewed and edited the documentation which was dictated to the scribe in my presence, and it accurately records my words and actions. I personally performed the services described in the documentation, reviewed and edited the documentation which was dictated to the scribe in my presence, and it accurately records my words and actions.
--- NOTE | 2018-12-15 20:02 | EKG REPORT ---
SEVERITY:- ABNORMAL ECG - SINUS RHYTHM PROBABLE LVH WITH SECONDARY REPOL ABNRM : Confirmed by: Eliza Del Cid MD 15-Dec-2018 20:01:59
== END 2018-12-15 16:59 | disposition home or self-care (01) ==
LOC: ER 08:52
DX: K12.0 Recurrent oral aphthae (principal); Z91.14 Patient's other noncompliance with medication regimen; I16.1 Hypertensive emergency; K08.89 Other specified disorders of teeth and supporting structures; I10 Essential (primary) hypertension; R51 Headache; Z79.899 Other long term (current) drug therapy; F17.200 Nicotine dependence, unspecified, uncomplicated
CPT/HCPCS: 93005; 96376; 99285; 96374; 96375; 36415; 82550; 83735; 85025; 80053; 84484; 93010; J1200; J0360; J3490; J0780

== ENCOUNTER 2019-06-26 22:20 | Emergency (ER) | payer SELFPAY ==
--- NOTE | 2019-06-27 00:10 | ER Document Report ---
ED General - General Chief Complaint: Carbon Monoxide Exposure Stated Complaint: POSSIBLE CARBON MONOXIDE EXPOSURE Time Seen by Provider: 06/26/19 23:38 Notes: 2 presents with "I think I am breathing and carbon monoxide." She is been living in a trailer for 2 years with an electric eater no generator or fossil feels has been having a year of muscle twitching and began having a headache several weeks ago. She says her headache is worse "what is about to get cold." She does not have any other symptoms. She does have some muscle aches but no fevers. No history of psych illness or toxic exposures. TRAVEL OUTSIDE OF THE [place] IN LAST 30 DAYS: No - Related Data Allergies/Adverse Reactions: LIONEL Inhibitors Allergy (Verified 12/15/18 09:18) ARB-Angiotensin Receptor Antagonist Allergy (Verified 12/15/18 09:18) lisinopril Allergy (Verified 06/26/19 22:57) Past Medical History - Social History Smoking Status: Current Every Day Smoker Frequency of alcohol use: None Drug Abuse: None Family History: Hypertension Patient has suicidal ideation: No Patient has homicidal ideation: No - Past Medical History Cardiac Medical History: Reports: Hx Hypertension Denies: Hx Congestive Heart Failure, Hx DVT, Hx Heart Attack, Hx Hypercholesterolemia, Hx Pulmonary Embolism Pulmonary Medical History: Denies: Hx Asthma, Hx COPD, Hx Tuberculosis Neurological Medical History: Denies: Hx Seizures Endocrine Medical History: Denies: Hx Diabetes Mellitus Type 1, Hx Diabetes Mellitus Type 2, Hx Hyperthyroidism, Hx Hypothyroidism Renal/ Medical History: Denies: Hx Peritoneal Dialysis GI Medical History: Denies: Hx Cirrhosis, Hx Gastroesophageal Reflux Disease, Hx Hepatitis Musculoskeletal Medical History: Reports Hx Arthritis - Osteoarthritis Skin Medical History: Denies Hx Eczema, Denies Hx Psoriasis Psychiatric Medical History: Reports: Hx Depression Infectious Medical History: Denies: Hx Hepatitis Past Surgical History: Reports: Hx Section, Hx Orthopedic Surgery - right knee, Hx Tubal Ligation. Denies: Hx Hysterectomy, Hx Pacemaker - Immunizations Hx Diphtheria, Pertussis, Tetanus Vaccination: Yes Review of Systems - Review of Systems Notes: REVIEW OF SYSTEMS GEN: Denies fever, chills, weight loss ENT: Denies sore throat, nasal discharge, ear pain EYES: Denies blurry vision, eye pain, discharge CV: Denies chest pain, palpitations, edema RESP: Denies cough, shortness of breath, wheezing GI: Denies abdominal pain, nausea, vomiting, diarrhea MSK: Denies joint pain/swelling, edema, SKIN: Denies rash, skin lesions LYMPH: Denies swollen glands/lymph nodes NEURO:, Denies headache, denies focal weakness or numbness, dizziness PSYCH: Denies depression, suicidal or homicidal ideation PHYSICAL EXAMINATION General: No acute distress, well-nourished Head: Atraumatic, normocephalic ENT: Mouth normal, oropharynx moist, no exudates or tonsillar enlargement Eyes: Conjunctiva normal, pupils equal, lids normal Neck: No JVD, supple, no guarding CVS: Normal rate, regular rhythm, no murmurs Resp: No resp distress, equal and normal breath sounds bilaterally GI: Nondistended, soft, no tenderness to palpation, no rebound or guarding Ext: No deformities, no edema, normal range of motion in upper and lower ext Back: No CVA or midline TTP Skin: No rash, warm Lymphatic: No lymphadeopathy noted Neuro: Awake, alert. Face symmetric. GCS 15. Physical Exam - Vital signs Vitals: Temp Pulse Resp BP Pulse Ox 98.0 F 98 16 150/99 H 99 06/26/19 22:26 06/26/19 22:26 06/26/19 22:26 06/26/19 22:26 06/26/19 22:26 Course - Re-evaluation Re-evalutation: 06/27/19 00:09 Nonspecific symptoms subacute presentation normal neuro exam concerning on patient's behalf for, last exposure. Will check level. Will check labs. No evidence of acute neurologic emergency, or clear obvious exposure to toxin including carbon oxide. 06/27/19 01:25 Normal including carbon oxide 2.4normal for smoker. Discharge home follow-up primary care. Recommend a carbon monoxide detector. I have discussed with the patient there likely diagnosis, aftercare plan, follow-up plans and my usual and customary return precautions. They verbalized understanding of this. - Vital Signs Vital signs: Temp Pulse Resp BP Pulse Ox 99.0 F 94 16 176/109 H 98 06/27/19 01:18 06/27/19 01:18 06/27/19 01:18 06/27/19 01:18 06/27/19 01:18 - Laboratory Result Diagrams: 06/26/19 23:59 06/26/19 23:59 Laboratory results interpreted by me: 06/26/19 06/26/19 06/27/19 23:59 23:59 00:45 Hgb 9.7 L Hct 31.4 L MCV 78 L MCH 24.1 L MCHC 31.1 L RDW 18.1 H Plt Count 535 H Carboxyhemoglobin 2.4 H Est GFR (MDRD) Non-Af 55 L Discharge - Discharge Clinical Impression: Headache Qualifiers: Headache type: other headache syndrome Qualified Code(s): G44.89 - Other headache syndrome Condition: Good Disposition: HOME, SELF-CARE Instructions: Headache ([facility])
[2019-06-27 00:13] LABS: VENOUS BLOOD HCO3 27.6 mmol/L (20-32); VENOUS BLOOD PCO2 53.8 mmHg (35-63); VENOUS BLOOD PH 7.33 (7.30-7.42)
[2019-06-27 00:21] LABS: ABSOLUTE BASOPHILS # (AUTO) 0.1 10^3/uL (0.0-0.2); ABSOLUTE EOSINOPHILS # (AUTO) 0.1 10^3/uL (0.0-0.6); ABSOLUTE LYMPHOCYTES (AUTO) 1.9 10^3/uL (0.5-4.7); ABSOLUTE MONOCYTES (AUTO) 0.5 10^3/uL (0.1-1.4); ABSOLUTE NEUT (AUTO) 4.5 10^3/uL (1.7-8.2); BASOPHILS % (AUTO) 0.9 % (0-2); HEMATOCRIT 31.4 % (36.0-47.0); HEMOGLOBIN 9.7 g/dL (12.0-15.5); LYMPHOCYTES % (AUTO) 26.1 % (13-45); MEAN CORPUSCULAR HEMOGLOBIN 24.1 pg (27.0-33.4); MEAN CORPUSCULAR HGB CONC 31.1 g/dL (32.0-36.0); MEAN CORPUSCULAR VOLUME 78 fl (80-97); MONOCYTES % (AUTO) 7.7 % (3-13); PLATELET COUNT 535 10^3/uL (150-450); RED BLOOD COUNT 4.04 10^6/uL (3.72-5.28); RED CELL DISTRIBUTION WIDTH 18.1 % (11.5-14.0); SEGMENTED NEUTROPHILS % (AUTO) 63.3 % (42-78); TOTAL CELLS COUNTED % (AUTO) 100 %; WHITE BLOOD COUNT 7.1 10^3/uL (4.0-10.5)
[2019-06-27 00:26] LABS: ANION GAP 8 (5-19); BLOOD UREA NITROGEN 13 mg/dL (7-20); CALCIUM 9.6 mg/dL (8.4-10.2); CARBON DIOXIDE 26 mmol/L (22-30); CHLORIDE 107 mmol/L (98-107); GLUCOSE 91 mg/dL (75-110); POTASSIUM 3.9 mmol/L (3.6-5.0)
[2019-06-27 01:20] VITALS: BP 176/109
== END 2019-06-27 01:23 | disposition home or self-care (01) ==
LOC: ER 22:20
DX: G44.89 Other headache syndrome (principal); R25.3 Fasciculation; M79.10 Myalgia, unspecified site; I10 Essential (primary) hypertension; F17.200 Nicotine dependence, unspecified, uncomplicated; Z77.29 Contact with and (suspected) exposure to other hazardous substances; Z88.8 Allergy status to other drugs, medicaments and biological substances
CPT/HCPCS: 36415; 80048; 82375; 82803; 85025; 99283

== ENCOUNTER → 2019-07-13 | Outpatient (CLI) | payer OTHER ==
--- NOTE | 2019-07-13 14:15 | RADIOLOGY REPORT (SQ) ---
EXAM DESCRIPTION: KNEE LEFT 4 VIEWS COMPLETED DATE/TIME: 07/13/2019 11:05 am REASON FOR STUDY: PRIMARY OSTEOARTHRTIS OF BOTH KNEES M17.0 BILATERAL PRIMARY OSTEOARTHRITIS OF KNE E COMPARISON: None. NUMBER OF VIEWS: Four views. TECHNIQUE: AP, lateral, and both oblique radiographic images acquired of the left knee. LIMITATIONS: None. FINDINGS: MINERALIZATION: Normal. BONES: No acute fracture or dislocation. No worrisome bone lesions. No significant osteophytes. JOINT: There is joint space narrowing in all compartments. This is most marked in the medial compart ment and patellofemoral compartment. OTHER: No other significant finding. IMPRESSION: Osteoarthritic changes most marked in the medial compartment and patellofemoral compartm ent. TECHNICAL DOCUMENTATION: JOB ID: [id number] [employer]- All Rights Reserved Reading location - IP/workstation name: [email or web address]
--- NOTE | 2019-07-13 14:17 | RADIOLOGY REPORT (SQ) ---
EXAM DESCRIPTION: KNEE RIGHT 4 VIEWS COMPLETED DATE/TIME: 07/13/2019 11:05 am REASON FOR STUDY: PRIMARY OSTEOARTHRTIS OF BOTH KNEES M17.0 BILATERAL PRIMARY OSTEOARTHRITIS OF KNE E COMPARISON: 07/17/2016 NUMBER OF VIEWS: Four views. TECHNIQUE: AP, lateral, and both oblique radiographic images acquired of the right knee. LIMITATIONS: None. FINDINGS: MINERALIZATION: Normal. BONES: Old tibial plateau fracture. No acute fracture or dislocation. JOINT: Joint space narrowing in all compartments. OTHER: No other significant finding. IMPRESSION: 1. Old tibial plateau fracture. No acute fracture dislocation. 2. Tricompartmental osteoarthritis. TECHNICAL DOCUMENTATION: JOB ID: [id number] [employer]- All Rights Reserved Reading location - IP/workstation name: [email or web address]
== END ==
LOC: OD 10:49
PROVIDERS: ATTEND Family Medicine
DX: M17.0 Bilateral primary osteoarthritis of knee (principal)

== ENCOUNTER → 2019-11-02 | Outpatient (CLI) | payer BC, OTHER ==
--- NOTE | 2019-11-02 09:48 | WOMENS IMAGING REPORT ---
EXAM DESCRIPTION: BILAT SCREENING MAMMO W/CAD COMPLETED DATE/TIME: 11/02/2019 8:09 am REASON FOR STUDY: Z12.31 SCREENING MAMMO Z12.31 ENCNTR SCREEN MAMMOGRAM FOR MALIGNANT NEOPLASM OF B RE COMPARISON: Multiple since 2017 EXAM PARAMETERS: Standard craniocaudal and mediolateral oblique views of each breast recorded using digital acquisition. Read with the assistance of CAD. .[facility] - [employer] Version 9.2 LIMITATIONS: None. FINDINGS: No suspicious masses, suspicious calcifications or architectural distortion. No areas of c oncern. IMPRESSION: Negative MAMMOGRAM. BIRADS 1 BREAST DENSITY: b. There are scattered areas of fibroglandular density. BIRAD: ASSESSMENT: 1 NEGATIVE RECOMMENDATION: ROUTINE SCREENING Please continue yearly bilateral screening mammography/tomosynthesis in October 2020 COMMENT: The patient has been notified of the results by letter per [place] requirements. Additional no tification policies are in place for contacting patient with suspicious or incomplete findings. Quality ID #[id number]: The [employer] recommends an annual screening mammogram for women aged 40 years or over. This facility utilizes a reminder system to ensure that all patients receive reminder letters, and/or direct phone calls for appointments. This includes reminders for routine scr eening mammograms, diagnostic mammograms, or other Breast Imaging Interventions when appropriate. Th is patient will be placed in the appropriate reminder system. TECHNICAL DOCUMENTATION: FINDING NUMBER: (1) ASSESSMENT: (1) JOB ID: [id number] 2010 [employer]- All Rights Reserved Reading location - IP/workstation name: [email or web address]
== END ==
LOC: WI 07:35
PROVIDERS: ATTEND Family Medicine
DX: Z12.31 Encounter for screening mammogram for malignant neoplasm of breast (principal)
CPT/HCPCS: 77067

== ENCOUNTER → 2020-04-27 | Outpatient (CLI) | payer BC, OTHER ==
--- NOTE | 2020-04-27 12:47 | RADIOLOGY REPORT (SQ) ---
EXAM DESCRIPTION: LUMBAR SPINE COMPLETE IMAGES COMPLETED DATE/TIME: 04/27/2020 12:12 pm REASON FOR STUDY: LOW BACK PAIN M54.5 LOW BACK PAIN COMPARISON: 09/10/2018 NUMBER OF VIEWS: Five views including obliques. TECHNIQUE: AP, lateral, oblique, and sacral radiographic images acquired of the lumbar spine. LIMITATIONS: None. FINDINGS: MINERALIZATION: Normal. SEGMENTATION: Normal. No transitional anatomy. ALIGNMENT: Normal. VERTEBRAE: Maintained height. No fracture or worrisome bone lesion. DISCS: Disc space narrowing at L4-L5 and L5-S1. There are degenerative changes at T12-L1 as well. POSTERIOR ELEMENTS: Pedicles and facets are intact. No pars defect or posterior arch defects. HARDWARE: None in the spine. PARASPINAL SOFT TISSUES: Normal. PELVIS: Intact as visualized. No fractures or worrisome bone lesions. SI joints intact. OTHER: No other significant finding. IMPRESSION: Mild degenerative changes stable from September 2018. No acute findings. TECHNICAL DOCUMENTATION: JOB ID: [id number] 2010 [employer]- All Rights Reserved Reading location - IP/workstation name: [email or web address]
== END ==
LOC: OD 11:56
PROVIDERS: ATTEND Family Medicine
DX: M51.35 Other intervertebral disc degeneration, thoracolumbar region (principal); M54.5 Low back pain
CPT/HCPCS: 72110